=== PATIENT | female | born 1950 | race Caucasian/White ===

== ENCOUNTER 2019-05-22 09:46 | Inpatient (IN) | payer MEDICARE, OTHER, SELFPAY ==
--- NOTE | 2019-05-07 15:41 | HP.PCM_ITS ---
History and Physical Patient Name: Mariluz Mandujano : 1950 From: ANIA CISSE PA-C DATE OF SURGERY: 05/22/2019 SCHEDULED PROCEDURE: right total hip arthroplasty HISTORY OF PRESENT ILLNESS: Preoperative history and physical exam was performed on May 06, 2019. This is a 69-year-old female who is been having ongoing pain for approximately 2 years in the right hip. Pain can reach as high as a 10/10 with activities. On average pain as a 7/10. Pain has been constant, aching, sharp, stabbing. Pain is increased with going up and down stairs, walking, and sleeping. Patient does complain of right buttock pain right lateral hip pain and anterior thigh/groin pain. Pain does awaken her at night. Patient has difficult time with activities of daily living including getting dressed, housework, shopping. She feels unsafe walking on uneven ground and standing for long periods. Patient has been using a cane for the past 1 year. She denies previous surgeries on the right hip. Patient has tried oral medications consisting of Celebrex and Tylenol as well as Biofreeze. She has tried conservative measures consisting of rest, ice, heat, elevation with minimal relief. She has been through formal physical therapy and home exercises with no relief. After discussion with Dr. Philippe Tran, the patient would like to proceed with a right total hip arthroplasty. We have obtain surgical clearance from patient's primary care physician Dr. Hutchison. Patient has medical history of previous cancer of the breast in which she had radiation 7 years ago and has been in remission. She did undergo a lumpectomy. Patient denies chest pain, shortness of breath, fevers chills, recent infections. REVIEW OF SYSTEMS: ROS: Const: Denies change in appetite, fever,or weight change. CV: Reports heart murmur, but denies chest pain and irregular heartbeat. Resp: Denies cough, pneumonia, SOB, tuberculosis and wheezing. GI: Denies constipation, diarrhea, difficulty swallowing, heartburn, nausea, bloody stools and vomiting. : Urinary: denies incontinence. Musculo: Reports limp and trouble walking, but denies leg swelling and weakness. Skin: Denies Raynaud's, history of shingles and tattoo. Neuro: Denies ambulatory dysfunction, dizziness, numbness/tingling and tremor. Psych: Denies anxiety, insomnia and stress. Valente/Lymph: Denies anemia, bleeding/bruising tendency and past transfusion. Reviewed and updated. PAST MEDICAL HISTORY: Advance Care Plan: Other Directive, POA Effective Date: 04/17/2017 PMH: Medical Problems: Cancer Accidents: Foot FX Surgical Hx: Hysterectomy - (1974) LT Knee Arthroscopy - (2007) [place] 2003 Lumpectomy, Tonsillectomy Dennis Cataract - (07/2018) Anesthesia Complications: Slow To Wake Up, Nausea, Vomiting Assistive Devices: Glasses - READING, Cane Reviewed and updated. SOCIAL HISTORY: SH: Marital: Single.Occupation: Retired.Work Status: Retired.Hand Dominance: Right- handed. Personal Habits: Cigarette Use: Never Smoked Cigarettes.Alcohol: Denies use.Drug Use: Denies Use.Enjoy Exercising: Exercises 1-3 X/Week. Reviewed, no changes. VITALS: Ht: 64 Wt: 179lb Wt k.194 BMI: 30.7 BP: 115/68 Pulse: 77 Resp: 16 T: 97.7 T: 36.5C ALLERGIES: Ampicillin Penicillin Adhesives MEDICATIONS: Celebrex 100 mg take 1 capsule every day, Calcium 1200 5814-3927 MG-Unit 1po qday, Vitamin B12 500 mcg 1po qday, Vitamin D (Ergocalciferol) 2000 Unit 2 caps PO daily PRE-OP EXAM: General appearance:NORMAL Other: Eyes: Conjunctivae and lids: NORMAL Pupils: ERR Ears, Nose, Mouth, and Throat: NORMAL Other: Inspection of lips, teeth and gums: NORMAL Other: Neck: Examination of neck: no masses noted. Respiratory: Assessment of respiratory effort: NORMAL Other: Auscultation of lungs: clear to auscultation no wheezes, rhonchi or rales. Cardiovascular: Auscultation of heart: regular rate and rhythm, no murmurs, gallops or rubs. Gastrointestinal: Exam of abdomen: soft, nontender, nondistended bowel sounds present. PHYSICAL EXAMINATION: Does walk with an antalgic gait. Right hip flexion 65, internal rotation 10, external rotation neutral. Passive range of motion recreates pain. 10 flexion contracture of the right knee. Sensation intact to light touch. Neurovascularly intact. IMAGING STUDIES: X-rays of the right hip reveal joint space narrowing, subchondral sclerosis, and osteophyte formation consistent with severe osteoarthritis. There is femoral head flattening and collapse due to the subchondral cyst. Patient has further erosion of the femoral head when compared to previous x-rays. IMPRESSION: 1. Severe right hip osteoarthritis 2. History of breast cancer PLAN: Dr. Philippe Tran did discuss and review with the patient all treatment options including surgical versus nonsurgical options. Patient does wish to proceed with the above-stated procedure. Potential risks, benefits, and complications of the procedure were discussed in detail including but not limited to , infection, nerve and blood vessel damage, persistent pain, numbness, tingling, paresthesias, blood clot, pulmonary embolism, and requirement for possible further surgery. The patient expressed full understanding and has no further questions for the doctor. Patient does agree to proceed with the above-stated procedure and has signed the surgery consent form. This dictation was created using voice recognition software. Phonetic and/or grammatical errors may exist.. ___ I have re-examined the patient. There are no clinical changes since date of exam. ___ See progress notes for changes. ___ Dictated on admission Date: Time: Signature:
[2019-05-08 14:13] VITALS: BP 121/67; PULSE 70; RESP 16; TEMP 36.7; O2SAT 96; BMI 29.7
--- NOTE | 2019-05-08 14:35 | SDCEKG_ITS ---
Test Reason : Blood Pressure : / mmHG Vent. Rate : 061 BPM Atrial Rate : 061 BPM P-R Int : 172 ms QRS Dur : 086 ms QT Int : 408 ms P-R-T Axes : 035 -56 010 degrees QTc Int : 410 ms Normal sinus rhythm Left anterior fascicular block Minimal voltage criteria for LVH, may be normal variant Abnormal ECG Confirmed by MAURIZIO WETZEL ([id number]), map editor RANDAL SALCEDO ([id number]) on 05/13/2019 2:00:43 PM Referred By: Philippe Tran Confirmed By:MAURIZIO WETZEL
[2019-05-08 15:31] LABS: Absolute Lymphocyte Count 1.89 X10^3/uL (0.83-4.51); Absolute Neutrophil Count 4.6 X10^3/uL (2.0-7.7); Basophil# 0.04 X10^3/uL; Basophil% 0.5 % (0-1); Eosinophil# 0.19 X10^3/uL; Eosinophils% 2.6 % (0-5); Hemoglobin 15.5 g/dL (12.0-15.0); Lymphocyte # 1.89 X10^3/ul (4.0); Lymphocyte % 25.8 % (19-41); Mean Corp Hgb Conc 34.4 g/dL (32-36); Mean Platelet Vol. 9.6 fl (6.2-12.0); Monocyte# 0.62 X10^3/uL; Monocyte% 8.5 % (0-10); NRBC Flagged by Analyzer 0 % (0-5); Neutrophil # 4.56 X10^3/uL (2.7-7.7); Neutrophil % 62.2 % (47-70); Platelet Count 274 K/mm3 (150-450); RBC Distribution Width CV 12.1 % (11.6-14.6); RBC Distribution Width SD 39.4 fl (35.1-43.9); White Blood Count 7.3 K/mm3 (4.4-11.0)
[2019-05-08 15:59] LABS: Anion Gap 9 (5-15); BUN 19 mg/dL (7-18); BUN/Creat Ratio 26.8 RATIO (10-20); Chloride 109 mmol/L (98-107); Creatinine, Serum 0.71 mg/dL (0.55-1.02); EST Glomerular Filtration Rate 87 mL/min (>60); Est Glom Filt Rate - Afr Amer 105 mL/min (>60); Glucose 93 mg/dL (74-106); Potassium 3.9 mmol/L (3.5-5.1); Sodium Level 142 mmol/L (136-145)
[2019-05-22] VITALS (11 sets, daily range): BP systolic 107–127; BP diastolic 50–61; PULSE 50–79; RESP 16–17; TEMP 35.7–36.4; O2SAT 95–100; BMI 29.7
--- NOTE | 2019-05-22 07:03 | RAD_ITS ---
STUDY: X-RAY - PELVIS AND RIGHT HIP REASON FOR EXAM: Female, 69 years old. Postop TECHNIQUE: 2 views of the pelvis and right hip. COMPARISON: None. FINDINGS: There are postsurgical changes from right hip arthroplasty. The hardware is intact and alignment is satisfactory. There is no acute fracture or dislocation. RAD/Hip Min 2 Views (Portable) IMPRESSION: Status post right hip arthroplasty with intact hardware in satisfactory alignment. Electronically Signed: Philippe Rodríguez, at 14:49 EDT Tel , Service support ,
[2019-05-22] MEDS: Lactated Ringers 1,000 ML 999 ML IV (07:05)
[2019-05-22] MEDS: Gabapentin 600 MG Tablet PO (10:14)
[2019-05-22] MEDS: Celecoxib 200 MG Capsule 400 MG PO (10:14)
[2019-05-22] MEDS: Acetaminophen 500 MG Tablet 1000 MG PO ×3 (10:15→21:06)
[2019-05-22 10:41] LABS: Bedside Glucose 103 mg/dL (70-110)
[2019-05-22] MEDS: Magnesium Sulfate 4gm/100mL 4 GM/100 ML IV.SOLN. IV (10:47)
[2019-05-22] MEDS: Scopolamine 1mg/72hr Patch 1 PATCH TRANSDERM. (10:49)
[2019-05-22] MEDS: Cefazolin 2 GM in 0.9% Normal Saline 100 ML IV (11:40)
--- NOTE | 2019-05-22 12:00 | RAD_ITS ---
STUDY: X-RAY - PELVIS AND RIGHT HIP REASON FOR EXAM: Female, 69 years old. Right hip arthroplasty TECHNIQUE: 4 intraoperative fluoroscopic views of the pelvis and hip. COMPARISON: None. FINDINGS: 4 intraoperative fluoroscopic views were provided during a right hip replacement procedure. Correlation with the operative report is recommended. RAD/Hip 1 view with Pelvis IMPRESSION: As above. Electronically Signed: Philippe Rodríguez, at 14:01 EDT Tel , Service support ,
--- NOTE | 2019-05-22 13:11 | OP.PCM_ITS ---
Report of Operation Date of Procedure: 05/22/19 Pre-Operative Diagnosis: Right hip primary osteoarthritis Post-Operative Diagnosis: Right hip primary osteoarthritis Surgery/Procedure Performed:: Right minimally invasive direct anterior hip replacement Description of Surgical Findings:: Stable hip with equal leg lengths site identification specialist: Regulo Knight Type of Anesthesia:: Spinal Anesthesiologist: Han Azevedo Special Medications: 2 g Ancef, 1 g TXA at incision, 1 g TXA closure, 10 mg Decadron, joint cocktail (5 mg Duramorph, 30 mL of 0.5% Ropivicaine, 1000 units of epinephrine, 30 mg of Toradol) Specimen's removed: Bony cuts Estimated Blood Loss (mL): 250 mL Fluids Replaced: 1200 mL crystalloid Description of Procedure: Components used: 1. Accolade 2 Fior femoral stem size 4 132? 2. [place] trident 2 acetabular shell size 50 mm 3. Fior X3 polyethylene D 4. Fior Biolox delta 36mm, -5mm femoral head Brief history operative indications: 69 yo f who failed conservative measures for their hip osteoarthritis. X-rays were consistent with osteoarthritis including joint space narrowing, osteophyte formation and subchondral cysts. Total hip replacement was discussed with the patient with risks and benefits including but not limited to blood loss, DVTs, PEs, neurovascular damage, dislocation, general risks of anesthesia including loss of life. Patient demonstrated an understanding medical clearance is obtained the patient was consented for surgery. Procedure: On the date of procedure the patient's R hip was marked in the preoperative area. Patient was then taken back to the operating room where anesthesia assumed control of the C-spine and airway and administered anesthetic. Patient was transferred to the operating table and placed in the supine position. The hips were placed at the break of the bed and a sacral bump was placed. The R lower extremity was then prepped out in a sterile fashion using chlorhexidine while the surgeon scrubbed. The PA was vital in the positioning of the patient. Upon reentering the room the R lower extremity was draped in the standard orthopedic fashion and the incision was marked. A timeout was called and everyone agreed upon the side, the site, the procedure be performed, antibody given, and patient's identity. At this time incision was made through skin, subcutaneous tissue, and fat down to fascia. The fascia was then incised and the TFL was retracted laterally. A retractor was placed on the lateral border of the femoral neck. Attention was directed to the inferior portion of the approach and all crossing vessels were identified and appropriately coagulated. A retractor was then placed on the medial portion of the femoral neck. The anterior capsule was then cleared of all soft tissue and then H shaped capsulotomy was made. The retractors were then placed inside the capsule. The femoral neck was identified and a cleanup cut was made. At this time a power corkscrew was used to remove the femoral head. Attention was then turned toward the acetabulum where the soft tissues were appropriately retracted and the acetabulum was sequentially reamed to 50 mm. A 50 mm cup was then selected and impacted into place. Acetabular liner was impacted into place and locking mechanism was verified. The position of the acetabular cup was then verified under live fluoroscopy. Attention was then turned to the femur. Soft tissue releases on the medial and lateral femoral neck were appropriately done, the leg was externally rotated and lateralized. A Mclean retractor was placed medially and proximally to the greater trochanter this allowed appropriate visualization and exposure of the femoral canal. Rongeour was then used to remove excess lateral bone. A canal finder and entry broach were used to open the proximal canal. Once we verified we were down the femoral canal we subsequently broached up to a size 4 femur. The appropriate neck was placed in the previously selected head was trialed with a -5 mm neck. Traction was pulled and the hip was reduced with internal rotation. Once it was appropriately reduced and stability was checked. There was minimal shuck, equal leg lengths and appropriate stability with hyperextension and external rotation as well as with 90? flexion and internal rotation. Fluoroscopy was then also used to verify the position of the components and leg lengths using the contralateral side for comparison. The trial components were then dislocated the proximal femur was again exposed and the components were removed from the wound. The final components were verified and opened. The wound was copiously irrigated out with normal saline. The acetabulum was checked for any residual debris. The final components were placed and impacted. Traction and internal rotation were again used to reduce the hip. After adequate reduction the hip remained stable with appropriate leg lengths. The final components were once again checked with live fluoroscopy and were found to be satisfactory. The wound was then copiously irrigated with normal saline once more, and hemostasis was obtained. Closure was then done using #1 Vicryl runner to close the fascia. A 2-0 vicryl interuppted sutures were used to close the subcutaneous skin. A 3-0 Monocryl and Steri-Strips were used for final skin closure. A Silverlon dressing was placed. Patient was awakened by anesthesia and transferred to the [facility]. Hilaria ent was then transferred to the PACU for recovery. Postoperative plan: Patient will get 24 hours postop antibiotics. Patient will get in-house physical therapy and will be weight-bear as tolerated. Patient will follow up in office in 2 weeks for a wound check and x-rays. Grafts/Implants Used: Fior - Complications No intraoperative complications - Admit VTE Documentation VTE Present on Admission: No VTE Mechan Device Prophylaxis: SCD's, Thigh High SHANTEL Hose VTE Pharm Prophylaxis ordered?: Yes
[2019-05-22] MEDS: Lactated Ringers 1,000 ML 125 ML IV ×2 (13:43→15:55)
[2019-05-22] MEDS: Aspirin 81 MG TAB.CHEW PO (16:14)
[2019-05-22] MEDS: Famotidine 20 MG Tablet PO (16:14)
--- NOTE | 2019-05-22 16:57 | CHAPLAIN ---
Type of Pastoral Visit _x__ Initial Visit ___ Follow-up Visit ___ On-call Visit ___ General Patient Visit ___ Spiritual Assessment ___ Family Conference ___ Bereavement ___ Rapid Response ___ Code Blue ___ Other (describe below) Pastoral Care Referral From _x__ Patient ___ Family ___ Nurse ___ Physician ___ Gear Repair Supervisor ___ Import/Export Administrator ___ Other (describe below) Sacrament/Intervention _x__ Active listening ___ Anointing ___ Mormonism ___ Bereavement ___ Communion ___ Beverly exploration ___ _x__ Life review _x__ Prayer ___ Reconciliation ___ Sacrament of Sick _x__ Supportive presence ___ Wedding ___ Other (describe below) Pastoral Comments
[2019-05-22] MEDS: Ensure Surgery 237 ML LIQUID PO (19:01)
[2019-05-22] MEDS: Cefazolin 1 GM/50 ML BAG IV (19:01)
[2019-05-22] MEDS: Senna/Docusate Sodium 1 Tablet 2 TABLET PO (21:07)
[2019-05-23 03:29] VITALS: BP 100/55; PULSE 58; RESP 16; TEMP 36.5; O2SAT 97
[2019-05-23] MEDS: Cefazolin 1 GM/50 ML BAG IV (03:42)
[2019-05-23 05:47] LABS: Hematocrit 35.6 % (37-47); Hemoglobin 11.9 g/dL (12.0-15.0); Mean Corp Hgb Conc 33.4 g/dL (32-36); Mean Corpuscular Hgb 30.7 pg (27.0-32.0); Mean Corpuscular Volume 91.8 fL (81-99); Mean Platelet Vol. 9.4 fl (6.2-12.0); Platelet Count 208 K/mm3 (150-450); RBC Distribution Width CV 12.5 % (11.6-14.6); RBC Distribution Width SD 41.5 fl (35.1-43.9); Red Blood Count 3.88 M/mm3 (4.2-5.4); White Blood Count 9.2 K/mm3 (4.4-11.0)
[2019-05-23 06:07] LABS: Anion Gap 5 (5-15); BUN 9 mg/dL (7-18); BUN/Creat Ratio 17.6 RATIO (10-20); Calcium,Total 8.3 mg/dL (8.5-10.1); Chloride 113 mmol/L (98-107); Creatinine, Serum 0.51 mg/dL (0.55-1.02); EST Glomerular Filtration Rate 126 mL/min (>60); Est Glom Filt Rate - Afr Amer 153 mL/min (>60); Glucose 101 mg/dL (74-106); Potassium 3.7 mmol/L (3.5-5.1); Sodium Level 145 mmol/L (136-145)
[2019-05-23] MEDS: Meloxicam 7.5 MG Tablet PO (06:18)
[2019-05-23] MEDS: Acetaminophen 500 MG Tablet 1000 MG PO ×2 (06:19→13:56)
[2019-05-23] MEDS: Aspirin 81 MG TAB.CHEW PO (07:37)
[2019-05-23] MEDS: Senna/Docusate Sodium 1 Tablet 2 TABLET PO (07:37)
[2019-05-23] MEDS: Ensure Surgery 237 ML LIQUID PO ×2 (07:37→11:31)
[2019-05-23] MEDS: Famotidine 20 MG Tablet PO (07:38)
[2019-05-23] MEDS: Multivitamins,Therapeutic Tablet 1 TABLET PO (07:38)
[2019-05-23] MEDS: Calcium (Elemental) 500 MG Tablet 1000 MG PO (07:39)
[2019-05-23 07:42] VITALS: BP 120/52; PULSE 67; RESP 16; TEMP 36.8; O2SAT 100
--- NOTE | 2019-05-23 08:36 | PN.ORTHO_ITS ---
Subjective: The patient was sitting in bedside chair upon examination. Patient denies any chest pain, shortness of breath, dizziness, lightheadedness, nausea or vomiting, or calf pain. Pain is controlled on medications. No adverse overnight events. Overall patient is doing well. Her pain is very well controlled. Patient wishes to go home today. Objective: Vital signs stable and afebrile. Patient is able to plantarflex and dorsiflex actively. Sensation is intact to light touch to saphenous, sural, superficial and deep peroneal, and tibial distribution. Dressing is clean dry and intact. Right thigh is soft and supple, positive swelling Negative Homans bilaterally, negative signs and symptoms of DVT. - Physical Exam General: Alert, Oriented x3, Cooperative, No apparent distress Vital Signs Temp Pulse Resp BP Pulse Ox 98.3 F 67 16 120/52 L 100 05/23/19 07:42 05/23/19 07:42 05/23/19 07:42 05/23/19 07:42 05/23/19 07:42 Oxygen Flow Rate (L/min) 6 Oxygen Delivery Method Room Air Weight: 81 kg Body Mass Index (BMI) 29.7 Intake and Output for Last 24 Hours 05/21/19 05/22/19 05/23/19 23:59 23:59 23:59 Intake Total 4423.00 / 4423.00 550 / 550 Output Total 1525 / 1525 Balance 4423.00 / 4423.00 -975 / -975 Laboratory Tests Past 24 Hrs 05/23/19 05/23/19 05:12 05:12 WBC 9.2 RBC 3.88 L Hgb 11.9 L Hct 35.6 L MCV 91.8 MCH 30.7 MCHC 33.4 RDW Std Deviation 41.5 RDW Coeff of Lanny 12.5 Plt Count 208 MPV 9.4 Sodium 145 Potassium 3.7 Chloride 113 H Carbon Dioxide 27.0 Anion Gap 5 BUN 9 Creatinine 0.51 L Estim Creat Clear Calc 47.10 Est GFR (MDRD) Af Amer 153 Est GFR (MDRD) Non-Af 126 BUN/Creatinine Ratio 17.6 Glucose 101 Calcium 8.3 L POC Glucose 05/22/19 10:22 POC Glucose 103 Medical Necessity - Tobacco Use Smoking Status: Never smoker Tobacco Use: Non-smoker Assessment/Plan 1. S/P right direct anterior total hip arthroplasty POD #1 2. Continue Pain Medications: Tylenol and OxyIR 3. DVT Prophylaxis: Aspirin 81 mg twice daily for 4 weeks postoperatively 4. PT/OT: Weightbearing as tolerated 5. H & H: 11.9/35.6, asymptomatic 6. Encouraged Incentive Spirometry 7. Disposition: Orthopedically stable, plan will be for discharge home today. Prescriptions will be E scribed to [facility] in [place]. Narcotic prescription will be attached to chart. Patient will follow-up per postop instructions.
--- NOTE | 2019-05-23 08:43 | DCINST_ITS ---
Discharge Diet: No Restrictions Discharge Activity: May Not Drive - while taking narcotic pain medications. May shower in (days): 1 - Turn dressing away from water Ice area for (Minutes): 20 - Every 1-2 hours while awake Weight Bearing Status: Weight bearing as tolerated Elevate: Operative Extremity Additional Activity Instructions:: Wear elastic stockings for 2 weeks. DO NOT use alcohol with narcotic pain medication. DO NOT make important decisions while taking narcotic medication. If you have problems with taking your medication (rash, itching, nausea, etc.) call the office at once. Call your doctor if your incision/area has: Increased Pain/ Swelling, Increased Redness, Foul Smelling Discharge Call your doctor if you observe: Fever of 101 or Higher Remove Dressing in (days):: 4 - Okay to remove dressing on May 27, 2019 Additional Instructions: Follow [facility] postop instructions Do not take aspirin 81 mg and meloxicam together, please stagger medications and take with food Allergies/Adverse Reactions: Allergies adhesive Allergy (Verified 05/08/19 14:09) Rash adhesive tape Allergy (Verified 05/08/19 14:09) Rash ampicillin Allergy (Verified 05/08/19 14:09) Rash Penicillins [PCN] Allergy (Verified 05/08/19 14:09) Rash Medications to take at Discharge Calcium Carbonate [Calcium] 1,200 mg PO DAILY 05/08/19 Cetirizine HCl [Zyrtec] 10 mg PO PRN PRN 05/08/19 Cholecalciferol (Vitamin D3) [Vitamin D3] 4,000 unit PO DAILY 05/08/19 Cyanocobalamin (Vitamin B-12) [Vitamin B-12] 500 mcg PO DAILY 05/08/19 Multivitamin [Daily Value] 1 ea PO DAILY 05/08/19 Carboxymethylcellulose Sodium [Refresh Tears] 1 drp OP BID 05/17/19 Acetaminophen [Tylenol] 1,000 mg PO Q8 #100 tab 05/23/19 Aspirin [Aspirin, Baby] 81 mg PO BIDCM #60 tab 05/23/19 Famotidine [Pepcid] 20 mg PO DAILY #30 tab 05/23/19 Meloxicam [Mobic] 7.5 mg PO BID #60 tab 05/23/19 Oxycodone [Oxyir] 5 mg PO Q4H PRN PRN 5 Days #30 tab 05/23/19 Senna/Docusate Sodium [Senokot-S] 2 tab PO BID #20 tab 05/23/19 The following prescriptions were given: Aspirin [Aspirin, Baby] 81 mg PO BIDCM #60 tab Transmission Status: Pending to [id number] Meloxicam [Mobic] 7.5 mg PO BID #60 tab Transmission Status: Pending to [id number] Oxycodone [Oxyir] 5 mg PO Q4H PRN PRN 5 Days #30 tab PRN Reason: Mod-Severe Pain (-07/11) Prescription Printed Famotidine [Pepcid] 20 mg PO DAILY #30 tab Transmission Status: Pending to [id number] Senna/Docusate Sodium [Senokot-S] 2 tab PO BID #20 tab Transmission Status: Pending to [id number] Acetaminophen [Tylenol] 1,000 mg PO Q8 #100 tab Transmission Status: Pending to [id number] Primary Care Physician: Dedrick Hutchison III, MD [Primary Care Provider] - Test Results: Test results from this visit will be discussed in further detail at your follow- up appointment, if applicable. Please Follow Up With: [facility] When: 05/27/19 @ 10:00 with Claudia Please Follow Up With: Mode Lackey PA-C When: 06/05/19 @ 8:15 am
--- NOTE | 2019-05-23 10:26 | CASEMGMT ---
LW/POA forms in paper chart. Pt's brother Ankit is named as POA. [address]
[2019-05-23] MEDS: Ondansetron 4 MG/2 ML Vial IV (13:59)
[2019-05-23 14:02] VITALS: BP 128/41; PULSE 65; RESP 18; TEMP 36.9; O2SAT 97
--- NOTE | 2019-05-23 14:24 | CHAPLAIN ---
Type of Pastoral Visit ___ Initial Visit _x__ Follow-up Visit ___ On-call Visit ___ General Patient Visit ___ Spiritual Assessment ___ Family Conference ___ Bereavement ___ Rapid Response ___ Code Blue ___ Other (describe below) Pastoral Care Referral From _x__ Patient ___ Family ___ Nurse ___ Physician ___ Professor Of Art History ___ Conveyor Operator ___ Other (describe below) Sacrament/Intervention _x__ Active listening ___ Anointing ___ Mormon ___ Bereavement ___ Communion ___ Beverly exploration ___ _x__ Life review ___ Prayer ___ Reconciliation ___ Sacrament of Sick ___ Supportive presence ___ Wedding ___ Other (describe below) Pastoral Comments
--- NOTE | 2019-05-23 15:48 | CASEMGMT ---
Addendum entered by Lisa Morales 05/23/19 16:00: assessment done 05/23/19 @1030 Original Note: RN CM PUBLIC TRANSIT TROLLEY DRIVER CM to room to meet with patient for initial transition planning/care coordination assessment. RN OSMANY introduced self and role at [facility]. Pt voices understanding and consents to assessment at this time. Pt sitting up in recliner chair in no distress at this time. Pt is A/O at this time and answers all questions appropriately. Care providers, pharmacy, and demographics verified/updated at this time. PCP: Dedrick Hutchison Specialists: Marc--ortho, Jackelin--ENT Preferred Pharmacy: [facility] Insurance:[employer], AARP Prescription Benefit: [employer] Living Will/HPOA: Has both LW and HCPOA, who is her brother, Joe Mandujano LNOK:Brother Living Arrangements: Lives alone in one-story home w/ramp to enter thru the garage. States was independent prior to surgery. States her cousin or friend will be staying with her overnight and available if needed to assist. Transportation: Cousin, Rosina, will drive her home @ d/c. Her friend will drive her to her 1st appt @ [facility] and then she is working on making further arrangements with her cousin and friend for further appts. DME: [facility] has the following DME: shower chair, cane, lift chair, rails/grab bars, hand held shower, walker, fast brim pouncer, long shoe horn Pt states no need for further DME at this time. HHC/SNF: No history of either and denies needs. Discussed HHC vs Out-pt therapy. Pt states she prefers OP therapy. Pt wishes to return home and states has no concerns with going home at time of discharge. CM to follow for any further discharge planning/needs. Pt voices no further concerns/needs at this time. Advised pt to ask for CM if any further questions/concerns/needs arise. Voices understanding. PLAN: Home w/OP therapy @ [facility]. Malgorzata CHANDLER RN, CM
== END 2019-05-23 14:19 | disposition home or self-care (01) | DRG 470 ==
LOC: ACINP 09:50 → MS3 13:07
PROVIDERS: Admitting Provider Specialist; Family Provider Family Medicine; PCP Family Medicine; Referring Provider Specialist; Visit Provider Specialist
PROC: 0SR90JA Replacement of Right Hip Joint with Synthetic Substitute, Uncemented, Open Approach (ICD-10-PCS; CPT 27284; principal; 2019-05-22 11:35)
DX: M16.11 Unilateral primary osteoarthritis, right hip (principal); Z85.3 Personal history of malignant neoplasm of breast; Z92.3 Personal history of irradiation
CPT/HCPCS: 36415; 73501; 73502; 76000; 80048; 82962; 85025; 85027; 87081; 93005; 97110; 97162; 97166; 97530; 99251; C1776; J7120; G0463; J2405

== ENCOUNTER → 2020-03-31 10:48 | Outpatient (CLI) | payer MEDICARE, OTHER, SELFPAY ==
[2019-05-22 10:17] VITALS: BMI 29.7
[2020-04-01 07:20] LABS: SARS-COV-2 TOTAL ABS Nonreactive (Nonreactive)
== END ==
PROVIDERS: PCP Family Medicine; Referring Provider Family Medicine; Visit Provider Family Medicine
DX: Z86.19 Personal history of other infectious and parasitic diseases (principal)
CPT/HCPCS: 86769; G2023

== ENCOUNTER → 2020-11-26 12:17 | Outpatient (CLI) | payer MEDICARE, OTHER, SELFPAY ==
[2019-05-22 10:17] VITALS: BMI 29.7
[2020-11-26 15:58] LABS: Ferritin 221 ng/mL (8-252)
[2020-11-28 09:20] LABS: Thyroid Peroxidase AB < 9 IU/mL (0-34)
[2020-12-01 15:30] LABS: Anti-Nuclear Antibody Test Negative (.)
== END ==
PROVIDERS: PCP Family Medicine; Referring Provider Dermatology Pediatric Dermatology; Visit Provider Dermatology Pediatric Dermatology
DX: E03.8 Other specified hypothyroidism (principal); D69.2 Other nonthrombocytopenic purpura; L82.1 Other seborrheic keratosis; L65.0 Telogen effluvium
CPT/HCPCS: 36415; 82728; 86038; 86376

== ENCOUNTER → 2022-01-28 | Outpatient (CLI) | payer MEDICARE, OTHER, SELFPAY ==
--- NOTE | 2022-01-28 07:41 | CT_ITS ---
STUDY: CT LEFT LOWER EXTREMITY WITHOUT CONTRAST REASON FOR EXAM: Varus deformity, left knee pain, surgical planning. TECHNIQUE: Transaxial CT imaging of the lower extremity was performed. Coronal and sagittal images were reformatted. Individualized dose optimization techniques were used for this CT. COMPARISON: None. FINDINGS: Knee: There are marginal osteophytes, subchondral eburnation and joint space loss of the medial femorotibial compartment (coronal reconstruction 31). There are marginal osteophytes and a surface osteophyte of the lateral femoral condyle with preservation of joint space of the lateral femorotibial compartment. There are marginal osteophytes and joint space narrowing of the lateral aspect of the patellofemoral compartment (axial image 242). There is an intra-articular body at the lateral aspect of the patellofemoral articulation (axial image 218). There is a small joint effusion. There is a small popliteal cyst (sagittal reconstruction 30). Hip: There is joint space narrowing of the superior medial left hip (coronal reconstructions 55). Ankle: Normal tibiotalar, posterior subtalar, talonavicular and calcaneocuboid articulations. CT/Extremity Lower without Contra IMPRESSION: Left knee osteoarthritis. Electronically Signed: Mando Scherer MD at 15:02 EDT ,
== END | disposition home or self-care (01) ==
LOC: CT 07:29
PROVIDERS: Referring Provider Specialist; Visit Provider Specialist
DX: M21.162 Varus deformity, not elsewhere classified, left knee (principal)
CPT/HCPCS: 73700

== ENCOUNTER 2022-02-09 05:49 | Day surgery (SDC) | payer MEDICARE, OTHER, SELFPAY ==
--- NOTE | 2022-01-25 13:31 | PCM.HP.BLA ---
History and Physical History and Physical [facility] Patient Name: Mariluz Mandujano : 1950 From: ANIA CISSE PA-C DATE OF SURGERY: 02/09/2022 SCHEDULED PROCEDURE: left total knee arthroplasty HISTORY OF PRESENT ILLNESS: Preoperative history and physical exam was performed on January 24, 2022. This is a 71-year-old female whose had ongoing pain since 2016 with her left knee. She does have previous history of a total hip arthroplasty by Dr. Philippe Tran in 2019. She is doing well from that procedure. She continues to complain of pain in the left knee despite conservative measures. Her pain is been sharp and sore. She gets stiffness as well as catching. Her knee mendy on her. Pain is increased with going up and down stairs, walking, and getting out of bed. She does have start up pain. Patient has difficulty with activities of daily living including shopping as well as leisure activities such as walking. She has stumbled when her knee gives out on her. She has tried rest, ice, elevation with minimal relief. She has tried multiple corticosteroid injections which only provides temporarily short-term relief. She has had previous meniscus repair arthroscopically in 2004 in [place]. She has also tried oral medications including glucosamine, Celebrex. She has also tried Tylenol. No relief with medications. She has attempted topical ointments as well. After failing conservative measures and discussing all treatment options with Dr. Philippe Tran, the patient does wish to proceed with a left total knee arthroplasty. We are obtaining surgical clearance from the primary care physician Dr. Stanley. Patient currently denies any chest pain, shortness of breath, fevers chills or recent infections. She has medical history pertinent for diabetes as well as previous breast cancer. Patient denies any history of DVT or pulmonary embolism. REVIEW OF SYSTEMS: Review Of Systems: Constitutional: Denies change in appetite, fever,or weight change. Cardiovasular: Reports heart murmur, but denies chest pain and irregular heartbeat. Respiratory: Denies cough, pneumonia, shortness of breath, tuberculosis and wheezing. Gastrointestinal: Denies constipation, diarrhea, heartburn, nausea, rectal itching, bloody stools and vomiting. Genitourinary: Denies incontinence. Musculoskeletal: Reports pain and trouble walking, but denies leg swelling and weakness. Skin: Denies Raynaud's, history of shingles and tattoo. Neurological: Denies ambulatory dysfunction, dizziness, numbness/tingling and tremor. Psychiatric: Denies anxiety, insomnia and stress. Hematologic/Lymphatic: Denies anemia, bleeding/bruising tendency and past transfusion. Reviewed, no changes. PAST MEDICAL HISTORY: Advance Care Plan: Other Directive, POA Effective Date: 04/17/2017 Past Medical History: Medical Problems: Cancer, Diabetes Accidents: Foot FX Surgical Hx: Hysterectomy - (1974) LT Knee Arthroscopy - (2003) [place] Lumpectomy, Tonsillectomy Dennis Cataract - (07/2018) RT THR - (05/22/2019) [email or web address] Lump Removal - LT LEG Anesthesia Complications: Slow To Wake Up, Nausea, Vomiting Assistive Devices: Glasses - READING Reviewed and updated. SOCIAL HISTORY: Social History: Marital: Single.Occupation: Retired.Work Status: Retired.Hand Dominance: Right-handed. Personal Habits: Cigarette Use: Never Smoked Cigarettes.Smokeless Tobacco: Never Used Smokeless Tobacco.E-Cigarette Use: Never used.Alcohol: Denies use.Drug Use: Denies Use.Enjoy Exercising: Exercises 1-3 X/Week. Reviewed, no changes. VITALS: Ht: 64 Wt: 172lb Wt k.019 BMI: 29.5 BP: 126/78 Pulse: 66 Resp: 14 T: 97.5 T: 36.4C Pain Level: 2 O2SatR: 98 ALLERGIES: Ampicillin Penicillin Adhesives MEDICATIONS: Zofran 4 mg 1-2 by mouth every 8 as needed nausea, Oxycodone HCL 5 mg 1-2 tab by mouth every 4 hours, Meloxicam 7.5 mg 1 by mouth twice a day, Famotidine 20 mg 1 by mouth every day, Calcium 1200 4935-4170 MG-Unit 1po qday, Vitamin B12 500 mcg 1po qday, Tylenol Extra Strength 500 mg prn, Zyrtec Allergy 10 mg 1 tab PO daily, Multi Vitamin Daily 1 by mouth every day, Vitamin D3 50 mcg (2000 Ut) 1 by mouth every day, Biotin 5000 5 mg 1po qday, Prilosec OTC 20 mg as directed, Metformin HCL 500 mg 1 by mouth twice every day PRE-OP EXAM: General appearance:NORMAL Other: Eyes: Conjunctivae and lids: NORMAL Pupils: ERR Ears, Nose, Mouth, and Throat: NORMAL Other: Inspection of lips, teeth and gums: NORMAL Other: Neck: Examination of neck: no masses noted. Respiratory: Assessment of respiratory effort: NORMAL Other: Auscultation of lungs: clear to auscultation no wheezes, rhonchi or rales. Cardiovascular: Auscultation of heart: regular rate and rhythm, positive systolic murmur, no gallops or rubs. PHYSICAL EXAMINATION: Patient does walk with an antalgic gait. Left knee is cool to touch without erythema or signs of infection. Previous arthroscopy incisions are well healed. Patient does have moderate effusion. She has tenderness to palpation along the medial joint line. Normal tenderness over the lateral joint line. She has varus alignment which is correctable on exam. Range of motion: Lacks approximately 10 full extension to 120 flexion. Stable to varus/valgus stress test, stable to anterior/posterior drawer. Sensation intact to light touch. IMAGING STUDIES: Previous x-rays reveal varus alignment with medial joint space narrowing, subchondral sclerosis, osteophyte formation consistent with severe stage IV osteoarthritis with associated heel compartment bony erosions. IMPRESSION: 1. Severe left knee osteoarthritis with varus deformity 2. Type 2 diabetes mellitus 3. History of breast cancer PLAN: Dr. Philippe Tran did discuss and review with the patient all treatment options including surgical versus nonsurgical options. Patient does wish to proceed with the above-stated procedure. Potential risks, benefits, and complications of the procedure were discussed in detail including but not limited to , infection, nerve and blood vessel damage, persistent pain, numbness, tingling, paresthesias, blood clot, pulmonary embolism, and requirement for possible further surgery. The patient expressed full understanding and has no further questions for the doctor. Patient does agree to proceed with the above-stated procedure and has signed the surgery consent form. We discussed the current risks associated with COVID 19. This does include the risk of exposure while in the hospital. Patient was reassured local hospitals have low infection rates and are taking all necessary precautions to avoid exposure to patients. In addition, we discussed strategies that can be used to help limit exposure including those that limit the patient's time in the hospital. Also using strategies to limit the patient's need for continued inpatient services after being discharged from the hospital. Patient was notified that we will need to comply with any screening or testing the hospital wishes to perform or that surgery may be delayed for any positive results. This dictation was created using voice recognition software. Phonetic and/or grammatical errors may exist. ___ I have re-examined the patient. There are no clinical changes since date of exam. ___ See progress notes for changes. ___ Dictated on admission Date: Time: Signature:
--- NOTE | 2022-01-28 07:32 | EKG12_ITS ---
Test Reason : PRE OP Blood Pressure : / mmHG Vent. Rate : 066 BPM Atrial Rate : 066 BPM P-R Int : 142 ms QRS Dur : 088 ms QT Int : 418 ms P-R-T Axes : 059 -70 069 degrees QTc Int : 438 ms Normal sinus rhythm Left anterior fascicular block Poor R wave progression Anterior [place], age undetermined, cannot be excluded Abnormal ECG Confirmed by RUBEN CABA, ERI ([id number]), digital editor RANDAL SALCEDO ([id number]) on 01/31/2022 11:35:44 AM Referred By: Philippe Tran Confirmed By:ERI MIRANDA MD
[2022-01-28 08:14] LABS: Absolute Lymphocyte Count 2.27 X10^3/uL (0.83-4.51); Absolute Neutrophil Count 3.1 X10^3/uL (2.0-7.7); Basophil# 0.05 X10^3/uL; Basophil% 0.8 % (0-1); Eosinophil# 0.24 X10^3/uL; Eosinophils% 3.9 % (0-5); Hematocrit 46.3 % (37-47); Hemoglobin 15.8 g/dL (12.0-15.0); Lymphocyte # 2.27 X10^3/ul (0.83-4.51); Lymphocyte % 37.1 % (19-41); Mean Corp Hgb Conc 34.1 g/dL (32-36); Mean Corpuscular Hgb 30.9 pg (27.0-32.0); Mean Corpuscular Volume 90.4 fL (81-99); Mean Platelet Vol. 9.5 fl (6.2-12.0); Monocyte# 0.47 X10^3/uL; Monocyte% 7.7 % (0-10); NRBC Flagged by Analyzer 0 % (0-5); Neutrophil # 3.07 X10^3/uL (2.7-7.7); Neutrophil % 50.2 % (47-70); Platelet Count 301 K/mm3 (150-450); RBC Distribution Width CV 12.4 % (11.6-14.6); Red Blood Count 5.12 M/mm3 (4.2-5.4); White Blood Count 6.1 K/mm3 (4.4-11.0)
[2022-01-28 08:32] LABS: Magnesium 2.1 mg/dL (1.6-2.6)
[2022-01-28 08:45] LABS: Hemoglobin A1c 6.3 % (3.8-5.6)
[2022-01-28 11:25] LABS: Albumin, Serum 4.1 g/dL (3.2-5.0); Anion Gap 8 (5-15); BUN 15 mg/dL (7-18); BUN/Creat Ratio 18.2 RATIO (10-20); Calcium,Total 9.2 mg/dL (8.5-10.1); Chloride 108 mmol/L (98-107); Creatinine, Serum 0.82 mg/dL (0.55-1.02); EST Glomerular Filtration Rate 72 mL/min (>60); Est Glom Filt Rate - Afr Amer 88 mL/min (>60); Glucose 148 mg/dL (74-106); Potassium 3.9 mmol/L (3.5-5.1); Sodium Level 140 mmol/L (136-145)
[2022-02-09] VITALS (10 sets, daily range): BP systolic 117–129; BP diastolic 58–68; PULSE 55–88; RESP 12–18; TEMP 36.1–36.4; O2SAT 96–100; BMI 28.9
[2022-02-09 06:36] LABS: Bedside Glucose 147 mg/dL (74-106)
--- NOTE | 2022-02-09 06:53 | RAD_ITS ---
STUDY: X-RAY - LEFT KNEE REASON FOR EXAM: Female, 71 years old. tka -- in PACU TECHNIQUE: 2 view(s) of the knee. COMPARISON: None. FINDINGS: There is a total knee arthroplasty in place. The alignment is grossly anatomic. There are postsurgical changes within the soft tissues of the ventral knee. RAD/Knee 1 or 2 Views IMPRESSION: Status post total knee arthroplasty, grossly anatomic in alignment. Electronically Signed: Brandy Lazo MD at 19:51 EDT ,
[2022-02-09] MEDS: Lactated Ringers 1,000 ML 15 ML IV (07:00)
[2022-02-09] MEDS: Celecoxib 200 MG Capsule 400 MG PO (07:02)
[2022-02-09] MEDS: Acetaminophen 500 MG Tablet 1000 MG PO ×2 (07:02→14:40)
[2022-02-09] MEDS: Gabapentin 600 MG Tablet PO (07:02)
--- NOTE | 2022-02-09 07:31 | OP.PCM_ITS ---
Report of Operation Date of Procedure: 02/09/22 Pre-Operative Diagnosis: Left knee primary osteoarthritis Post-Operative Diagnosis: Left knee primary osteoarthritis Surgery/Procedure Performed:: Left knee minimally invasive robotic assisted total knee replacement Description of Surgical Findings:: Stable knee with good patella tracking Surgeon: Philippe Tran operating engineer apprentice: Yogesh Lackey Type of Anesthesia: Spinal Anesthesiologist: Han Azevedo Special Medications: 2 g Ancef, 1 g TXA at incision, 1 g TXA closure, 10 mg Decadron, joint cocktail (5 mg Duramorph, 30 mL of 0.5% Ropivicaine, 1000 units of epinephrine, 30 mg of Toradol) Specimen's removed: Bony cuts Estimated Blood Loss (mL): 35 Fluids Replaced: 650 ml Crystalloid Description of Procedure: Implants used: 1. [place] size 4 triathlon cruciate retaining distal femoral press-fit component 2. [place] size 4 press-fit tritanium tibial baseplate 3. [place] X3 11 mm CS polyethylene 4. [place] X3 29 mm asymmetric patella Brief history operative indications: 71-year-old F with history of left knee osteoarthritis with radiographic findings with loss of joint space, osteophyte formation and subchondral sclerosis. Failed conservative measures as mentioned in the H&P. Discussion of total knee arthroplasty as well as risk and benefits were discussed the patient including but not limited to blood loss, DVTs, PEs, neurovascular damage, general risk of anesthesia including loss of life, and stiffness or instability were discussed with patient. Patient demonstrated understanding and was able to sign informed consent. Procedure: On the date of procedure patient's left lower extremity was marked in the preoperative area. The patient was then taken back to the operating room where the patient was placed on the table in the supine position. All bony prominences were identified a well-padded. Anesthesia assumed control of the C-spine and airway and remained controlled throughout the remainder of the procedure. A to urniquet was placed on the left upper thigh and the leg was prepped in a sterile fashion. The surgeon then scrubbed at this time .Upon reentering the room left lower extremity was draped in a standard orthopedic fashion. A timeout was then called and everyone agreed upon the side, the site, the procedure to be performed, patient's identity and antibiotics given. Esmarch bandage was used to exsanguinate the extremity and the tourniquet was placed up to 250 mmHg with the knee in flexion. A midline skin incision was made and sharp dissection was taken down through skin subcutaneous tissue and f at. The standard medial parapatellar incision was made and the patella was subluxed laterally. An Appropriate deep MCL release was done and the fat pad was resected. Our attention was then directed to the patella. The patella was everted and a flat resection was made. The knee was then flexed up in 2 femoral pins were placed inside the incision and 2 tibial pins were placed outside the incision in the medial tibia bicortically. Once this was completed the 2 checkpoints in the femur and tibia were placed. Knee was then flexed up and the bony landmarks were registered. Once this was completed knee was taken through range of motion and manually stressed allowing us to a plan for an appropriate tibial cut. The robotic arm was brought into the field sterilely and checkpoint and saw were registered. Based on the patient's deformity the tibial cut was made in 2 degrees of varus. At this time the tensioner was then placed in the joint and ligament tension was checked at 90 degrees and full extension. Based on the patient's ligamentous tension appropriate adjustments were made to the operative plan and ligament releases were done. Once we were happy with our operative plan with balanced flexion and extension gaps our attention was directed to the femur. The robot was brought into the field sterilely and registered. Posterior condylar cuts, anterior chamfer cuts and anterior cuts were appropriately made for a size 4 femur. When these were completed the saws were switched out in the distal femoral and posterior chamfer cuts were made. Protecting the soft tissue throughout this time. A size 4 tibial base plate was selected. the knee was flexed to 90 degrees and the soft tissues and posterior osteophytes were removed from the joint. 40 cc of the periarticular injection was injected into the posterior medial corner of the joint. The appropriate trials were then placed on the femur and tibia. A trial polyethylene was trialed to ensure proper balancing and stability of the knee. The appropriate tibial internal rotation was then marked with a bovie. Our attention was then directed to the patella. The lug holes were drilled and the patella trial was placed. Patellar tracking was checked and deemed appropriate. Once we were happy lug holes were drilled for the femur and trial components were removed. the tibia was subluxed and pinned into place and the keel was punched and drilled appropriately. Final components were verified and opened, and cement was mixed in a vacuum. [employer] Simplex cement was used. The wound was copiously irrigated with normal saline. When the cement was ready the components were impacted into place starting with the tibia, femur and finally cementing the patella. The trial poly component was placed and the knee was placed in full extension. All excess cement was removed in the process. Once the cement had cured the tracking, alignment and balance were verified and a size 11 mm CS polyethylene component was placed. Once the final components were placed a 3-minute dilute Betadine lavage was performed followed by an Irrisept lavage was performed and the wound was copiously irrigated with normal saline solution and the periarticular injection was given. The wound was closed in a layer duarte fashion using #1 vicryl interrupted sutures for the arthrotomy, 2-0 interrupted Vicryl suture for the subcuticular layer and jose for final skin closure. A sterile compressive dressing was then placed. The patient was then awakened from anesthesia, transferred to the [facility] and transferred to the PACU for recovery. Post op plan DVT ppx: ASA 81mg BID, thigh high compression stockings Follow up: in office in 2 weeks for wound check PT: to start POD #0 at hospital, outpatient PT should be arranged. My physician assistant manager pt was a vital part of this case. He was important in appropriate retraction during the case, and protection of soft tissues during bony cuts. His intimate knowledge of the case and my steps aided in safe and expedient completion of the procedure as well as appropriate position of the leg during the case. He was also vital in assisting with closure under my direct supervision. Due to the complexity of this case robotic arm was used to assist in the surgery to improve accuracy and clinical outcomes. Complications No intraoperative complications Admit VTE Documentation VTE Present on Admission: No VTE Mechan Device Prophylaxis: SCD's and Thigh High SHANTEL Hose VTE Pharm Prophylaxis ordered?: Yes
[2022-02-09] MEDS: Cefazolin 2 GM in 0.9% Normal Saline 100 ML IV (07:45)
[2022-02-09] MEDS: dexAMETHasone 10 MG/ML Vial IV (08:00)
[2022-02-09] MEDS: TXA 1000mg in NS100 100ml (IVPB at Incision) 660 MG IV (08:00)
[2022-02-09] MEDS: TXA 1000mg in NS100 100ml (IVPB at Closure) 660 MG IV (08:55)
[2022-02-09] MEDS: Lactated Ringers 1,000 ML 999 ML IV (09:00)
[2022-02-09 10:10] LABS: Bedside Glucose 191 mg/dL (74-106)
[2022-02-09] MEDS: Insulin Lispro 100 UNIT/ML INSULN.PEN SC (10:23)
[2022-02-09] MEDS: Lactated Ringers 1,000 ML 125 ML IV (10:29)
--- NOTE | 2022-02-09 12:18 | CHAPLAIN ---
Type of Pastoral Visit _x__ Initial Visit ___ Follow-up Visit ___ On-call Visit ___ General Patient Visit ___ Spiritual Assessment ___ Family Conference ___ Bereavement ___ Rapid Response ___ Code Blue ___ Other (describe below) Pastoral Care Referral From _x__ Patient ___ Family ___ Nurse ___ Physician ___ Group Home Manager ___ [place] Rope Maker ___ Other (describe below) Sacrament/Intervention _x__ Active listening ___ Anointing ___ Sabianism ___ Bereavement ___ Communion ___ [place] exploration ___ ___ Life review _x__ Prayer ___ Reconciliation ___ Sacrament of Sick ___ Supportive presence ___ Wedding ___ Other (describe below) Pastoral Comments post op prayer and presence given in support of patient
[2022-02-09] MEDS: Cefazolin 1 GM/50 ML BAG IV (13:02)
== END 2022-02-09 15:04 | disposition home or self-care (01) ==
LOC: SDC 05:49 → AC 05:50
PROVIDERS: Anesthesiology; PCP Family Medicine; Referring Provider Specialist; Visit Provider Specialist
PROC: 0SRD0JZ Replacement of Left Knee Joint with Synthetic Substitute, Open Approach (ICD-10-PCS; CPT 27447; principal; 2022-02-09 07:30)
DX: M17.12 Unilateral primary osteoarthritis, left knee (principal); M21.162 Varus deformity, not elsewhere classified, left knee; E11.9 Type 2 diabetes mellitus without complications; Z20.822 Contact with and (suspected) exposure to COVID-19; K21.9 Gastro-esophageal reflux disease without esophagitis; Z79.84 Long term (current) use of oral hypoglycemic drugs; Z79.899 Other long term (current) drug therapy; Z78.0 Asymptomatic menopausal state
CPT/HCPCS: 27447; 64447; 01402; 36415; 73560; 80048; 82040; 82962; 83036; 83735; 85025; 87081; 87426; 93005; 97162; C1776; C9803; J7120; J3475

== ENCOUNTER → 2023-10-09 | Outpatient (CLI) | payer MEDICARE, OTHER, SELFPAY ==
--- NOTE | 2023-10-09 12:35 | RAD_ITS ---
STUDY: X-RAY CHEST REASON FOR EXAM: Female, 73 years old. Cough. TECHNIQUE: Frontal and lateral views of the chest. COMPARISON: None. FINDINGS: Mild hyperinflation. There is no demonstrated pleural abnormality. Borderline cardiomegaly. Normal mediastinum and kt. Normal visualized pulmonary arteries. Mild aortic tortuosity. Normal visualized thoracic spine. Normal visualized ribs, clavicles, and shoulders. There is no demonstrated abnormality of the visualized soft tissue structures of the upper abdomen. RAD/Chest PA and Lateral IMPRESSION: Borderline cardiomegaly with hyperinflation and no acute or active cardiac disease. Electronically Signed: Joe Blas MD at 12:50 EST ,
--- OUTSIDE RECORDS SUMMARY | 2023-10-09 12:44 | XMS RPT_ITS | CCD ---
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 Name Role Phone Wilfred Rodriguez MD Primary Care Provider SADIE KNOTT Referring Unavailable WILFRED RODRIGUEZ Primary Care Unavailable WILFRED RODRIGUEZ Attending Unavailable WILFRED RODRIGUEZ Primary Care Unavailable WILFRED RODRIGUEZ Referring Unavailable WILFRED RODRIGUEZ Primary Care Unavailable WILFRED RODRIGUEZ Primary Care Unavailable WILFRED RODRIGUEZ Primary Care Unavailable WILFRED RODRIGUEZ Primary Care Unavailable WILFRED RODRIGUEZ Primary Care Unavailable WILFRED RODRIGUEZ Attending Unavailable WILFRED RODRIGUEZ Primary Care Unavailable WILFRED RODRIGUEZ Referring Unavailable SADIE KNOTT Attending Unavailable WILFRED RODRIGUEZ Primary Care Unavailable CRISTIANO SORTO Attending Unavailable WILFRED RODRIGUEZ Primary Care Unavailable Allergies Allergy Classification Reported Allergen(s) Allergy Type Date of Onset Reaction(s) Facility (7 sources) Adhesive agent; Translations: [ADHESIVE] Drug Allergy 02-21-2017 [facility] (20 sources) Ampicillin; Translations: [AMPICILLIN] Drug Allergy 08-24-2016 [facility] (20 sources) Adhesive agent Drug Allergy 02-21-2017 [facility] Medications Current Medications Medication Drug Class(es) Dates Sig (Normalized) Sig (Original) azithromycin 250 mg oral tablet (1 source) Macrolide Antimicrobial Start: 04-28-2023 End: 05-03-2023 azithromycin (ZITHROMAX Z-BONNIE) 250 mg tablet Indications: Bacterial sinusitis Take 2 tablets day one, then, 1 tablet daily until gone. 6 tablet 0 04/28/2023 05/03/2023 Active Completed/Discontinued Medications Medication Drug Class(es) Dates Sig (Normalized) Sig (Original) Calcium (20 sources) Phosphate Binder, Calcium take 1200 mg by mouth once daily CALCIUM ORAL Take 1,200 mg by mouth once daily. 0 Active Problems Active Problems Problem Classification Problem Date Documented Date Episodic/Chronic Cancer of breast (20 sources) History of malignant neoplasm of breast; Translations: [Personal history of malignant neoplasm of breast] Onset: 08-24-2016 08-24-2016 Episodic Diabetes mellitus without complication (20 sources) Type 2 diabetes mellitus without complication; Translations: [Type 2 diabetes mellitus without complications] Onset: 06-02-2021 Chronic Disorders of lipid metabolism (20 sources) Hyperlipidemia; Translations: [Hyperlipidemia, unspecified] Onset: 02-28-2020 02-28-2020 Chronic Esophageal disorders (20 sources) Gastroesophageal reflux disease without esophagitis; Translations: [Gastro-esophageal reflux disease without esophagitis] Onset: 06-02-2021 06-02-2021 Chronic Nutritional deficiencies (20 sources) Vitamin D deficiency; Translations: [Vitamin D deficiency, unspecified] Onset: 01-12-2018 01-12-2018 Chronic Open wounds of extremities (1 source) Laceration of left ring finger; Translations: [Laceration without foreign body of left ring finger without damage to nail, initial encounter] Episodic Osteoarthritis (20 sources) Arthritis of hip; Translations: [Unilateral primary osteoarthritis, unspecified hip] Onset: 01-12-2018 01-12-2018 Chronic Osteoporosis (20 sources) Osteoporosis; Translations: [Age-related osteoporosis without current pathological fracture] Onset: 01-12-2018 01-12-2018 Chronic Other aftercare (1 source) Removal of sutures done; Translations: [Encounter for removal of sutures] Episodic Other aftercare (1 source) Wound finding; Translations: [Encounter for other specified aftercare] Episodic Other non-traumatic joint disorders (1 source) Pain in left knee; Translations: [Pain in joint, lower leg] Episodic Other upper respiratory infections (1 source) Bacterial sinusitis; Translations: [Chronic sinusitis, unspecified] 04-28-2023 Chronic Residual codes; unclassified (1 source) Other specified personal risk factors, not elsewhere classified; Translations: [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] Onset: 06-14-2023 Episodic Viral infection (1 source) Disease caused by 2019-nCoV; Translations: [COVID-19] Episodic Past or Other Problems Problem Classification Problem Date Documented Da te Episodic/Chronic Diabetes mellitus without complication (20 sources) Impaired fasting glycemia; Translations: [Impaired fasting glucose] Onset: 02-28-2020 02-28-2020 Episodic Other screening for suspected conditions (not mental disorders or infectious disease) (6 sources) Patient encounter status; Translations: [Encounter for screening mammogram for malignant neoplasm of breast] Onset: 03-16-2023 Episodic Spondylosis; intervertebral disc disorders; other back problems (20 sources) Chronic low back pain; Translations: [Lumbago with sciatica, right side] Onset: 11-29-2016 11-29-2016 Episodic Results Test Name Value Interpretation Reference Range Facil ity Vital Signs Date Time Vital Sign Value Performing Clinician Faci [email or web address] 09-07-2023 08:51-0500 Body weight 79.42 kg Wilfred Rodriguez MD Work Phone: [facility] 09-07-2023 08:51-0500 Diastolic blood pressure 80 mm[Hg] Wilfred Rodriguez MD Work Phone: [facility] 09-07-2023 08:51-0500 Heart rate 78 /min Wilfred Rodriguez MD Work Phone: [facility] 09-07-2023 08:51-0500 Respiratory rate 16 /min Wilfred Rodriguez MD Work Phone: [facility] 09-07-2023 08:51-0500 Systolic blood pressure 130 mm[Hg] Wilfred Rodriguez MD Work Phone: [facility] 06-14-2023 11:21-0400 Body weight 79.38 kg Sadie Knott MD Work Phone: [facility] 06-14-2023 11:21-0400 Diastolic blood pressure 68 mm[Hg] Sadie Knott MD Work Phone: [facility] 06-14-2023 11:21-0400 Systolic blood pressure 114 mm[Hg] Sadie Knott MD Work Phone: [facility] 04-28-2023 12:11-0400 Body temperature 98.6 [degF] Cristiano Sorto APRN.CNP Work Phone: [facility] 04-28-2023 12:11-0400 Body weight 78.83 kg Cristiano Phillip SALES RECORD CLERK.CATIA DESIGNER Work Phone: [facility] 04-28-2023 12:11-0400 Diastolic blood pressure 75 mm[Hg] Cristiano Phillip SALES RECORD CLERK.CATIA DESIGNER Work Phone: [facility] 04-28-2023 12:11-0400 Heart rate 77 /min Cristiano Phillip SALES RECORD CLERK.CATIA DESIGNER Work Phone: [facility] 04-28-2023 12:11-0400 Respiratory rate 16 /min Cristiano Phillip SALES RECORD CLERK.CATIA DESIGNER Work Phone: [facility] 04-28-2023 12:11-0400 SaO2% (BldA) [Mass fraction] 98 % Cristiano Phillip SALES RECORD CLERK.CATIA DESIGNER Work Phone: [facility] 04-28-2023 12:11-0400 Systolic blood pressure 125 mm[Hg] Cristiano Phillip SALES RECORD CLERK.CATIA DESIGNER Work Phone: [facility] 03-06-2023 12:32-0400 Body weight 77.56 kg Wilfred Rodriguez MD Work Phone: [facility] 03-06-2023 12:32-0400 Diastolic blood pressure 78 mm[Hg] Wilfred Rodriguez MD Work Phone: [facility] 03-06-2023 12:32-0400 Heart rate 68 /min Wilfred Rodriguez MD Work Phone: [facility] 03-06-2023 12:32-0400 Respiratory rate 16 /min Wilfred Rodriguez MD Work Phone: [facility] 03-06-2023 12:32-0400 Systolic blood pressure 116 mm[Hg] Wilfred Rodriguez MD Work Phone: [facility] 01-21-2023 09:36-0400 Body temperature 97 [degF] Franca Newman SALES RECORD CLERK.CATIA DESIGNER Work Phone: [facility] 01-21-2023 09:36-0400 Body weight 77.56 kg Franca Newman SALES RECORD CLERK.CATIA DESIGNER Work Phone: [facility] 01-21-2023 09:36-0400 Heart rate 62 /min Franca Newman SALES RECORD CLERK.CATIA DESIGNER Work Phone: [facility] 01-21-2023 09:36-0400 Respiratory rate 16 /min Franca Newman SALES RECORD CLERK.CATIA DESIGNER Work Phone: [facility] 01-21-2023 09:36-0400 SaO2% (BldA) [Mass fraction] 9 % Franca Newman SALES RECORD CLERK.CATIA DESIGNER Work Phone: [facility] 01-12-2023 13:10-0400 Body temperature 97.81 [degF] Cassandra Athy PA-C Work Phone: [facility] 01-12-2023 13:10-0400 Body weight 78.02 kg Cassandra Athy PA-C Work Phone: [facility] 01-12-2023 13:10-0400 Diastolic blood pressure 80 mm[Hg] Cassandra Athy PA-C Work Phone: [facility] 01-12-2023 13:10-0400 Heart rate 72 /min Cassandra Athy PA-C Work Phone: [facility] 01-12-2023 13:10-0400 Respiratory rate 16 /min Cassandra Athy PA-C Work Phone: [facility] 01-12-2023 13:10-0400 SaO2% (BldA) [Mass fraction] 97 % Cassandra Athy PA-C Work Phone: [facility] 01-12-2023 13:10-0400 Systolic blood pressure 132 mm[Hg] Cassandra Athy PA-C Work Phone: [facility] 09-05-2022 13:50-0500 Body weight 76.39 kg Wilfred Rodriguez MD Work Phone: [facility] 09-05-2022 13:50-0500 Diastolic blood pressure 70 mm[Hg] Wilfred Rodriguez MD Work Phone: [facility] 09-05-2022 13:50-0500 Heart rate 70 /min Wilfred Rodriguez MD Work Phone: [facility] 09-05-2022 13:50-0500 Respiratory rate 16 /min Wilfred Rodriguez MD Work Phone: [facility] 09-05-2022 13:50-0500 Systolic blood pressure 122 mm[Hg] Wilfred Rodriguez MD Work Phone: [facility] 05-24-2022 15:57-0400 Body weight 77.11 kg Sadie Knott MD Work Phone: [facility] 05-24-2022 15:57-0400 Diastolic blood pressure 68 mm[Hg] Sadie Knott MD Work Phone: [facility] 05-24-2022 15:57-0400 Systolic blood pressure 124 mm[Hg] Sadie Knott MD Work Phone: [facility] 01-07-2022 09:10-0400 Body weight 80.74 kg Wilfred Rodriguez MD Work Phone: [facility] 01-07-2022 09:10-0400 Diastolic blood pressure 74 mm[Hg] Wilfred Rodriguez MD Work Phone: [facility] 01-07-2022 09:10-0400 Heart rate 68 /min Wilfred Rodriguez MD Work Phone: [facility] 01-07-2022 09:10-0400 Respiratory rate 14 /min Wilfred Rodriguez MD Work Phone: [facility] 01-07-2022 09:10-0400 Systolic blood pressure 136 mm[Hg] Wilfred Rodriguez MD Work Phone: [facility] Encounters Encounter Date Encounter Type Care Provider Facility Start: 09-07-2023 End: 09-07-2023 ambulatory WILFRED RODRIGUEZ Facility:[facility] Start: 09-07-2023 End: 09-07-2023 Patient encounter procedure Wilfred Rodriguez MD Work Phone: [facility] Procedures Date Procedure Procedure Detail Performing Clinician Start: 03-16-2023 End: 03-16-2023 Mammography Sadie Knott MD Work Phone: Start: 03-08-2022 End: 03-08-2022 Mammography Jillian Gaspar LIEN COOPER Work Phone: Start: 06-01-2021 Adult depression scr eening assessment Wilfred Rodriguez MD Work Phone: Start: 02-25-2021 Mammography Wilfred andrew MD Work Phone: Start: 07-18-2016 Colonoscopy Wilfred andrew MD Work Phone: Plan of Treatment Date Care Activity Detail Author Start: 01-12-2033 Urine microalbumin profile [facility] Start: 09-20-2027 Urine microalbumin profile DTAP,TDAP,TD (2 - Td or Tdap) [facility] Start: 07-18-2026 Colonoscopy COLONOSCOPY [facility] Start: 07-18-2026 COLORECTAL CANCER SCREENING COLORECTAL CANCER SCREENING [facility] Start: 09-07-2024 Annual PCP Team Chronic Disease Visit Annual PCP Team Chronic Disease Visit [facility] Start: 09-04-2024 Hepatitis B surface antibody level LDL Cholesterol [facility] Start: 08-08-2024 Hepatitis C antibody, confirmatory test Dilated Retinal Exam [facility] Start: 04-28-2024 ANNUAL PCP TEAM CHRONIC DISEASE VISIT ANNUAL PCP TEAM CHRONIC DISEASE VISIT [facility] Start: 03-27-2024 3 comp foot exam completed Diabetic Foot Exam [facility] Start: 03-16-2024 Mammography [facility] Start: 03-08-2024 End: 06-07-2024 ALBUMIN/CREAT RATIO RND UR ALBUMIN/CREAT RATIO RND UR Lab Routine Type 2 diabetes mellitus without complication, without long-term current use of insulin (HCC) Expected: 03/08/2024 (Approximate), Expires: 06/07/2024 [facility] Work Phone: Immunizations Immunization Date Immunization Notes Care Provider Fa javan 08-09-2023 COVID-19 vaccine, ag e 12+ yr, season (Partly) Wilfred Rodriguez MD Work Phone: [facility] 07-20-2023 influenza, high dose seasonal, preservative-free Wilfred Rodriguez MD Work Phone: [facility] 01-12-2023 tetanus and diphther ia toxoids, adsorbed, preservative free, for adult use (5 Lf of tetanus toxoid and 2 Lf of diphtheria toxoid) Cassandra Sharma PA-C Work Phone: [facility] Work Phone: 01-12-2023 TD(adult) unspecifie d formulation Cassandra Sharma PA-C Work Phone: [facility] Work Phone: 08-19-2022 COVID-19 booster vaccine, age 12+ yr, bivalent (PFIZER-BIONTECH) Wilfred Rodriugez MD Work Phone: [facility] 07-08-2022 influenza, high dose seasonal, preservative-free Franca Newman SALES RECORD CLERK.CATIA DESIGNER Work Phone: [facility] 07-08-2022 influenza virus vaccine, unspecified formulation Sadie Knott MD Work Phone: [facility] 07-19-2021 COVID-19 vaccine, ag e 12+ yr (PFIZER-BIONTECH - PURPLE TOP) Wilfred Rodriguez MD Work Phone: [facility] 06-19-2021 influenza, high dose seasonal, preservative-free Wilfred Rodriguez MD Work Phone: [facility] 12-21-2020 COVID-19 vaccine, ag e 12+ yr (PFIZER-BIONTECH - PURPLE TOP) Wilfred Rodriguez MD Work Phone: [facility] 11-30-2020 COVID-19 vaccine, ag e 12+ yr (PFIZER-BIONTECH - PURPLE TOP) Wilfred Rodriguez MD Work Phone: [facility] 08-17-2020 zoster vaccine recombinant Wilfred Rodriguez MD Work Phone: [facility] 07-23-2020 influenza virus vaccine, unspecified formulation Wilfred Rodriguez MD Work Phone: [facility] 07-23-2020 influenza, high dose seasonal, preservative-free Wilfred Rodriguez MD Work Phone: [facility] 05-04-2020 zoster vaccine recombinant Wilfred Rodriguez MD Work Phone: [facility] 04-14-2020 pneumococcal polysaccharide vaccine, 23 valent Wilfred Rodriguez MD Work Phone: [facility] Work Phone: 09-20-2017 tetanus toxoid, redu sammy diphtheria toxoid, and acellular pertussis vaccine, adsorbed Wilfred Rodriguez MD Work Phone: [facility] 05-14-2015 zoster vaccine, live Wilfred pena MD Work Phone: [facility] Work Phone: 12-24-2014 pneumococcal conjuga te vaccine, 13 valent Wilfred Rodriguez MD Work Phone: [facility] Work Phone: Payers Date Payer Category Payer Medicare MEDICARE MEDICAR E A AND B [id number] 2016-Present [phone] [place] [address] Medicare [id number] 2016 Medicare MEDICARE MEDICAR E A AND B [id number] 2016-Present [phone] [place] [address] Medicare [id number] 2016 Medicare [id number] 2016 Private Health Insurance [facility] AARP SUPPLEMENT [id number] 2016-Present [phone] [address] [place] [address] Indemnity [id number] 2016 Private Health Insurance [facility] AARP SUPPLEMENT [id number] 2016-Present [phone] [address] [place] [address] Dorcas [id number] 2016 Unknown [id number] Social History Date Type Detail Facility Start: 08-24-2016 End: 07-27-2022 Tobacco smoking status NHIS Never smoked tobacco [facility] Start: 08-24-2016 End: 07-27-2022 Tobacco use and exposure Smokeless tobacco non-user [facility] Start: 12-02-2021 End: 09-07-2023 Alcohol intake Current non-drinker of alcohol (finding) [facility] Start: 06-01-2021 End: 01-06-2022 History SDOH Alcohol Frequency 1 [facility] Start: 06-01-2021 History SDOH Social Connections Phone 5 [facility] Start: 06-01-2021 History SDOH Social Connections Get Together 4 [facility] Start: 06-01-2021 End: 03-05-2023 History SDOH Social Connections Faith 3 [facility] Start: 06-01-2021 History SDOH Social Connections Membership 98 [facility] Start: 06-01-2021 History SDOH Social Connections Living 7 [facility] Start: 06-01-2021 History SDOH Physica l Activity DPW 6 [facility] Start: 06-01-2021 End: 01-06-2022 History SDOH Physical Activity MPS 2 [facility] Start: 03-27-2020 Education 21 [facility] Start: 1950 Sex Assigned At Not on file [facility] Start: 12-17-2021 End: 09-05-2022 Exposure to SARS-CoV-2 (event) Not sure [facility] Start: 03-05-2023 End: 03-06-2023 History of Social function [place] Start: 03-05-2023 End: 03-06-2023 Social connection and isolation panel [facility] In a typical week, h ow many times do you talk on the telephone with family, friends, or neighbors? Patient refused [facility] Are you now , , , , never or living with a partner? Refused [facility] (I/We) worried justo er (my/our) food would run out before (I/we) got money to buy more. DK or Refused [facility] Clinical Notes 01-07-2022 to 09-07-2023 Wilfred Rodriguez MD - 09/07/2023 9:00 AM ESTPatient InstructionsTelephone Encounter - Delores Albarado Ma - 08/08/2023 1:23 PM Sadie Hopson MD - 06/14/2023 11:21 AM EDT Note Date & Type Note Facility 09-07-2023 Note HNO ID: [id number] Author: Wilfred Rodriguez MD Service: ? Author Type: Physician Type: Progress Notes Filed: 09/07/2023 9:57 AM Note Text: Chief Complaint Patient presents with: 6 Month Exam HPI Mariluz Mandujano is a 73 year old female who presents here today for 6 month follow up. Since May she has had several vacations, went to [place] for 3 weeks and zip lined at the [place], and did some road trips to other states. Denies any bowel, Gi, or urinary issues. Reflux sx stable, no longer uses Prilosec 40 mg. Lipid: Not taking any medications, controlling with diet and exercise. She has not been watching diet as well due to all her traveling. DM: Checks BS occ, FBS 116-134. No hypoglycemic episodes or neuropathy sx. Taking Metformin xr 500 mg 2 pills once daily. Follows with [facility] Dr. Mitchell. She has not been watching diet as well due to all her traveling. No chest pains, dizziness, or SOB. Her BP is slightly elevated today during visit, normally runs in the 120/70 or lower range. Hand: right index finger, small callused cyst. No pain, no redness, no drainage. Past medical history, appointments, medications, allergies reviewed. Previous Medical History PAST MEDICAL HISTORY Diagnosis Date Arthritis of hip 01/12/2018 2018: R hip Breast cancer (HCC) R breast, stage II s/p radiation treatment Lumbago Previous Surgical History PAST SURGICAL HISTORY Procedure Laterality Date ARTHRP ACETBLR/PROX FEM PROSTC AGRFT/ALGRFT Right 05/2019 BREAST LUMPECTOMY HX 10/2011 HYSTERECTOMY HX 1990 endometriosis, heavy menses KNEE SURGERY HX 2004 TONSILLECTOMY PRIMARY/SECONDARY Tonsillectomy TOTAL KNEE REPLACEMENT Left 02/09/2022 Dr. Tran Family History FAMILY HISTORY Problem Relation Age of Onset Cancer Paternal Uncle LUNG Cancer Paternal Uncle BREAST Cancer Paternal Uncle BREAST Heart Father Colon Cancer Maternal Aunt Breast Cancer Maternal Aunt Patient Allergies ALLERGIES Allergen Reactions Ampicillin Rash Adhesive Rash Current Medications Current Outpatient Medications on File Prior to Visit Medication Sig metFORMIN ER (GLUCOPHAGE XR) 500 mg 24 hr tablet Take 2 tablets by mouth daily with breakfast. cetirizine (ZYRTEC) 10 mg tablet Take 10 mg by mouth once daily as needed. Cholecalciferol, Vitamin D3, 2,000 unit cap Take 2 capsules by mouth once daily. CALCIUM ORAL Take 1,200 mg by mouth once daily. cyanocobalamin (VITAMIN B-12) 500 mcg tablet Take 1 tablet by mouth once daily. MULTIVITAMIN (MULTIPLE VITAMIN ESSENTIAL ORAL) Take 1 capsule by mouth once daily. No current facility-administered medications on file prior to visit. Social History Social History Tobacco Use Smoking status: Never Smokeless tobacco: Never Vaping Use Vaping Use: Never used Substance Use Topics Alcohol use: No Drug use: No EXAM: BP 130/80 Pulse 78 Resp 16 Wt 79.4 kg (175 lb 1.6 oz) BMI 31.02 kg/m? General Appearance: Well appearing, alert, in no acute distress, well-hydrated, well nourished. and Overweight. Lungs: Lungs clear to auscultation. No wheezing, rhonchi, rales.. Heart: RRR without murmur, gallop, or rubs. No ectopy. Finger: right index; ganglion cyst Health Maintenance List Hepatitis B Vaccine(1 of 3 - Risk 3-dose series) Never done RSV Vaccine(1 - 1-dose 60+ series) Never done Advance Directive Discussion due on 10/02/2022 HbA1C due on 08/31/2023 Urine Albumin:Creatinine Ratio due on 02/29/2024 LDL Cholesterol due on 02/29/2024 Mammogram Screening due on 03/16/2024 Diabetic Foot Exam due on 03/27/2024 Annual PCP Team Chronic Disease Visit due on 04/28/2024 Dilated Retinal Exam due on 08/08/2024 Colorectal Cancer Screening due on 07/18/2026 DTaP,Tdap,Td Vaccine(3 - Td or Tdap) due on 01/12/2033 Bone Density Screening Completed Influenza Vaccine Completed Depression Assessment Completed Hepatitis C Screening Completed Shingrix Vaccine Completed Covid-19 Vaccine Completed Pneumococcal Vaccine: 65+ Completed Data reviewed Appointment on 09/04/2023 Component Date Value Protein, Total 09/04/2023 6.5 Albumin 09/04/2023 4.4 Calcium, Total 09/04/2023 9.5 Bilirubin, Total 09/04/2023 0.6 Alkaline Phosphatase 09/04/2023 83 AST 09/04/2023 24 ALT 09/04/2023 31 Glucose 09/04/2023 150 (H) BUN 09/04/2023 15 Creatinine 09/04/2023 0.69 Sodium 09/04/2023 138 Potassium 09/04/2023 4.3 Chloride 09/04/2023 105 CO2 09/04/2023 23 Anion Gap 09/04/2023 10 Estimated Glomerular Elmer* 09/04/2023 91 Hemoglobin A1C 09/04/2023 6.3 (H) Estimated Average Glucose 09/04/2023 134 Cholesterol, Total 09/04/2023 195 Triglyceride 09/04/2023 122 HDL Cholesterol 09/04/2023 45 Non HDL Cholesterol 09/04/2023 150 (H) Fasting Time 09/04/2023 12 VLDL Cholesterol 09/04/2023 24 TC:HDL Ratio 09/04/2023 4.33 LDL Cholesterol 09/04/2023 126 (H) LDL:HDL Ratio 09/04/2023 2.80 (H) ASSESSMENT/PLAN: (more content not included)... [facility] 09-07-2023 History of Presen t illness Narrative Chief Complaint Patient presents with: 6 Month Exam HPI Mariluz Mandujano is a 73 year old female who presents here today for 6 month follow up. Since May she has had several vacations, went to [place] 3 weeks and zip lined [place], and did some road trips to other states. Denies any bowel, Gi, or urinary issues. Reflux sx stable, no longer uses Prilosec 40 mg. Lipid: Not taking any medications, controlling with diet and exercise. She has not been watching diet as well due to all her traveling. DM: Checks BS occ, FBS 116-134. No hypoglycemic episodes or neuropathy sx. Taking Metformin xr 500 mg 2 pills once daily. Follows with [facility] Dr. Mitchell. She has not been watching diet as well due to all her traveling. No chest pains, dizziness, or SOB. Her BP is slightly elevated today during visit, normally runs in the 120/70 or lower range. Hand: right index finger, small callused cyst. No pain, no redness, no drainage. Past medical history, appointments, medications, allergies reviewed. Previous Medical History PAST MEDICAL HISTORY Diagnosis Date Arthritis of hip 01/12/2018 2018: R hip Breast cancer (HCC) R breast, stage II s/p radiation treatment Lumbago Previous Surgical History PAST SURGICAL HISTORY Procedure Laterality Date ARTHRP ACETBLR/PROX FEM PROSTC AGRFT/ALGRFT Right 05/2019 BREAST LUMPECTOMY HX 10/2011 HYSTERECTOMY HX 1990 endometriosis, heavy menses KNEE SURGERY HX 2003 TONSILLECTOMY PRIMARY/SECONDARY <AGE 12 Tonsillectomy TOTAL KNEE REPLACEMENT Left 02/09/2022 Dr. Tran Family History FAMILY HISTORY Problem Relation Age of Onset Cancer Paternal Uncle LUNG Cancer Paternal Uncle BREAST Cancer Paternal Uncle BREAST Heart Father Colon Cancer Maternal Aunt Breast Cancer Maternal Aunt Patient Allergies ALLERGIES Allergen Reactions Ampicillin Rash Adhesive Rash Current Medications Current Outpatient Medications on File Prior to Visit Medication Sig metFORMIN ER (GLUCOPHAGE XR) 500 mg 24 hr tablet Take 2 tablets by mouth daily with breakfast. cetirizine (ZYRTEC) 10 mg tablet Take 10 mg by mouth once daily as needed. Cholecalciferol, Vitamin D3, 2,000 unit cap Take 2 capsules by mouth once daily. CALCIUM ORAL Take 1,200 mg by mouth once daily. cyanocobalamin (VITAMIN B-12) 500 mcg tablet Take 1 tablet by mouth once daily. MULTIVITAMIN (MULTIPLE VITAMIN ESSENTIAL ORAL) Take 1 capsule by mouth once daily. No current facility-administered medications on file prior to visit. Social History Social History Tobacco Use Smoking status: Never Smokeless tobacco: Never Vaping Use Vaping Use: Never used Substance Use Topics Alcohol use: No Drug use: No EXAM: BP 130/80 Pulse 78 Resp 16 Wt 79.4 kg (175 lb 1.6 oz) BMI 31.02 kg/m General Appearance: Well appearing, alert, in no acute distress, well-hydrated, well nourished. and Overweight. Lungs: Lungs clear to auscultation. No wheezing, rhonchi, rales.. Heart: RRR without murmur, gallop, or rubs. No ectopy. Finger: right index; ganglion cyst Health Maintenance List Hepatitis B Vaccine(1 of 3 - Risk 3-dose series) Never done RSV Vaccine(1 - 1-dose 60+ series) Never done Advance Directive Discussion due on 10/02/2022 HbA1C due on 08/31/2023 Urine Albumin:Creatinine Ratio due on 02/29/2024 LDL Cholesterol due on 02/29/2024 Mammogram Screening due on 03/16/2024 Diabetic Foot Exam due on 03/27/2024 Annual PCP Team Chronic Disease Visit due on 04/28/2024 Dilated Retinal Exam due on 08/08/2024 Colorectal Cancer Screening due on 07/18/2026 DTaP,Tdap,Td Vaccine(3 - Td or Tdap) due on 01/12/2033 Bone Density Screening Completed Influenza Vaccine Completed Depression Assessment Completed Hepatitis C Screening Completed Shingrix Vaccine Completed Covid-19 Vaccine Completed Pneumococcal Vaccine: 65+ Completed Data reviewed Appointment on 09/04/2023 Component Date Value Protein, Total 09/04/2023 6.5 Albumin 09/04/2023 4.4 Calcium, Total 09/04/2023 9.5 Bilirubin, Total 09/04/2023 0.6 Alkaline Phosphatase 09/04/2023 83 AST 09/04/2023 24 ALT 09/04/2023 31 Glucose 09/04/2023 150 (H) BUN 09/04/2023 15 Creatinine 09/04/2023 0.69 Sodium 09/04/2023 138 Potassium 09/04/2023 4.3 Chloride 09/04/2023 105 CO2 09/04/2023 23 Anion Gap 09/04/2023 10 Estimated Glomerular Elmer* 09/04/2023 91 Hemoglobin A1C 09/04/2023 6.3 (H) Estimated Average Glucose 09/04/2023 134 Cholesterol, Total 09/04/2023 195 Triglyceride 09/04/2023 122 HDL Cholesterol 09/04/2023 45 Non HDL Cholesterol 09/04/2023 150 (H) Fasting Time 09/04/2023 12 VLDL Cholesterol 09/04/2023 24 TC:HDL Ratio 09/04/2023 4.33 LDL Cholesterol 09/04/2023 126 (H) LDL:HDL Ratio 09/04/2023 2.80 (H) ASSESSMENT/PLAN: 1. Type 2 diabetes mellitus without complication, without long-term current use of insulin (HCC) - ICD9: 250.00, ICD10: E11.9 (primary diagnosis) - Controlled - Continue current medications - Counseled on healthy diet and regular exercise - Discussed need for and benefit of weight loss. BMI 31.02 kg/(m^2) - 2. Hyperlipidemia with target LDL less than 100 - ICD9: 272.4, ICD10: E78.5 - Controlled - Continue current medications - Counseled on healthy diet and regular exercise - Discussed need for and benefit of weight loss. BMI 31.02 kg/(m^2) 3. GERD without esophagitis - ICD9: 530.81, ICD10: K21.9 - stable No longer on Prilosec Follow up in 6 months with fasting labs and urine test prior. I agree with the Chief Complaint, ROS, and Past Histories independently gathered by the clinical business support administrator and the remaining scribed note accurately describes my personal service to the patient. Medical Decision Making: Problems: Moderate: 2+ stable chronic illnesses Data: Unique test result(s) reviewed: 3+ Unique test(s) ordered: 3+ Risk: Moderate: Drug management Medical Decision Making Level: 4 - Moderate Wilfred Rodriguez MD The documentation for this note was completed by Delores Albarado Ma acting as scribe for Wilfred Rodriguez MD. September 07, 2023 9:10 AM. Delores Albarado Ma documented in this encounter [facility] 09-07-2023 Instructions Delores Albarado Ma - 09/07/2023 8:58 AM EST Please bring a copy of your advanced directive and DNR form to the office so we can scan it into your chart. If you decide to get the RSV vaccine you will need to get this at your local pharmacy. Anyone 65 and older needs to get at local pharmacy. documented in this encounter [facility] 08-08-2023 Miscellaneous Notes Chart updated. documented in this encounter [facility] 07-31-2023 Miscellaneous Notes The following approved medication requests have been transmitted electronically. Requested Prescriptions Pending Prescriptions Disp Refills metFORMIN ER (GLUCOPHAGE XR) 500 mg 24 hr tablet 180 tablet 1 Sig: Take 2 tablets by mouth daily with breakfast. Cristiano Sorto APRN.CNP Patient has been identified by name and date of : Yes Requested Prescriptions Pending Prescriptions Disp Refills metFORMIN ER (GLUCOPHAGE XR) 500 mg 24 hr tablet 180 tablet 1 Sig: Take 2 tablets by mouth daily with breakfast. RX INSTRUCTIONS: Patient aware RX will be sent to pharmacy. No need to notify patient. Patient last office visit: 04/28/23 Patient next office visit: 09/07/23 Maryma Birmingham MA documented in this encounter [facility] 06-14-2023 Note HNO ID: [id number] Author: Sadie Knott MD Service: ? Author Type: Physician Type: Progress Notes Filed: 06/14/2023 11:43 AM Note Text: Mariluz is a 73 year old who presents for an annual gynecologic exam without complaints. Postmenopausal: yes and s/p hyst HRT use: No. Last Pap: normal HPV: negative History of abnormal pap: No Last mammogram: 2022 normal History of abnormal mammogram: Yes OB History T0 L0 SAB0 IAB0 Ectopic0 Multiple0 Live Births0 [employer] History LMP: Hysterectomy Age at Menarche: Age at First : Age at Menopause: [employer] History Comments: Sexual Activity: Not Asked; No partner data on record; hysterectomy Contraception: Surgical PAST MEDICAL HISTORY Diagnosis Date Arthritis of hip 01/12/2018 2018: R hip Breast cancer (HCC) R breast, stage II s/p radiation treatment Lumbago PAST SURGICAL HISTORY Procedure Laterality Date ARTHRP ACETBLR/PROX FEM PROSTC AGRFT/ALGRFT Right 05/2019 BREAST LUMPECTOMY HX 10/2011 HYSTERECTOMY HX 1990 endometriosis, heavy menses KNEE SURGERY HX 2003 TONSILLECTOMY PRIMARY/SECONDARY Tonsillectomy TOTAL KNEE REPLACEMENT Left 02/09/2022 Dr. Tran FAMILY HISTORY Problem Relation Age of Onset Cancer Paternal Uncle LUNG Cancer Paternal Uncle BREAST Cancer Paternal Uncle BREAST Heart Father Colon Cancer Maternal Aunt Breast Cancer Maternal Aunt SOCIAL HISTORY Social History Tobacco Use Smoking status: Never Smokeless tobacco: Never Vaping Use Vaping Use: Never used Substance Use Topics Alcohol use: No Drug use: No REVIEW OF SYSTEMS Abdomen: no changes in BM Bladder: No dysuria, gross hematuria, urinary frequency, urinary urgency, or incontinence Breast: No breast lumps, nipple d/c, overlying skin changes, redness or skin retraction Allergies and current medication updated:Yes EXAM: BP 114/68 Wt 175 lb (79.4kg) GENERAL: pleasant, female in no apparent distress HEENT: Normocephalic, atraumatic, mucus membranes moist, and no lesions NECK: Supple, full range of motion, no adenopathy, and thyroid normal DERMATOLOGY: Normal, without lesions, non-icteric, and non-hirsute BREAST: soft, non-tender, no dominant mass, normal nipple-areolar complex, no lymphadenopathy, no nipple discharge, and scar on right from previous lumpectomy noted CHEST: Normal inspiratory effort ABDOMEN: soft, non-tender, and no masses PELVIC: external genitalia normal, normal Bartholin's glands, urethra, [place]'s glands, no vulvar lesions, physiologic discharge present, normal appearing perineal body and perianal region, cervix surgically absent, cystocele 1st degree, rectocele 1st degree, flattened atrophic epithelium BIMANUAL: no adnexal masses, non-tender, and uterus surgically absent RECTOVAGINAL: deferred. NEURO: alert and oriented x3,exam grossly non-focal EXTREMITIES: normal ASSESSMENT/PLAN: 1) Health maintenance: Pap/HPV screening no longer needed Mammogram ordered Colon cancer screening: up to date with screening 2) Follow up one year or sooner as needed Sadie Knott MD [facility] 06-14-2023 History of Presen t illness Narrative Mariluz is a 73 year old who presents for an annual gynecologic exam without complaints. Postmenopausal: yes and s/p hyst HRT use: No. Last Pap: normal HPV: negative History of abnormal pap: No Last mammogram: 2022 normal History of abnormal mammogram: Yes OB History T0 L0 SAB0 IAB0 Ectopic0 Multiple0 Live Births0 [employer] History LMP: Hysterectomy Age at Menarche: Age at First : Age at Menopause: [employer] History Comments: Sexual Activity: Not Asked; No partner data on record; hysterectomy Contraception: Surgical PAST MEDICAL HISTORY Diagnosis Date Arthritis of hip 01/12/2018 2018: R hip Breast cancer (HCC) R breast, stage II s/p radiation treatment Lumbago PAST SURGICAL HISTORY Procedure Laterality Date ARTHRP ACETBLR/PROX FEM PROSTC AGRFT/ALGRFT Right 05/2019 BREAST LUMPECTOMY HX 10/2011 HYSTERECTOMY HX 1990 endometriosis, heavy menses KNEE SURGERY HX 2003 TONSILLECTOMY PRIMARY/SECONDARY <AGE 11 Tonsillectomy TOTAL KNEE REPLACEMENT Left 02/09/2022 Dr. Tran FAMILY HISTORY Problem Relation Age of Onset Cancer Paternal Uncle LUNG Cancer Paternal Uncle BREAST Cancer Paternal Uncle BREAST Heart Father Colon Cancer Maternal Aunt Breast Cancer Maternal Aunt SOCIAL HISTORY Social History Tobacco Use Smoking status: Never Smokeless tobacco: Never Vaping Use Vaping Use: Never used Substance Use Topics Alcohol use: No Drug use: No REVIEW OF SYSTEMS Abdomen: no changes in BM Bladder: No dysuria, gross hematuria, urinary frequency, urinary urgency, or incontinence Breast: No breast lumps, nipple d/c, overlying skin changes, redness or skin retraction Allergies and current medication updated:Yes EXAM: BP 114/68 Wt 175 lb (79.4kg) GENERAL: pleasant, female in no apparent distress HEENT: Normocephalic, atraumatic, mucus membranes moist, and no lesions NECK: Supple, full range of motion, no adenopathy, and thyroid normal DERMATOLOGY: Normal, without lesions, non-icteric, and non-hirsute BREAST: soft, non-tender, no dominant mass, normal nipple-areolar complex, no lymphadenopathy, no nipple discharge, and scar on right from previous lumpectomy noted CHEST: Normal inspiratory effort ABDOMEN: soft, non-tender, and no masses PELVIC: external genitalia normal, normal Bartholin's glands, urethra, [place]'s glands, no vulvar lesions, physiologic discharge present, normal appearing perineal body and perianal region, cervix surgically absent, cystocele 1st degree, rectocele 1st degree, flattened atrophic epithelium BIMANUAL: no adnexal masses, non-tender, and uterus surgically absent RECTOVAGINAL: deferred. NEURO: alert and oriented x3,exam grossly non-focal EXTREMITIES: normal ASSESSMENT/PLAN: 1) Health maintenance: Pap/HPV screening no longer needed Mammogram ordered Colon cancer screening: up to date with screening 2) Follow up one year or sooner as needed Sadie Knott MD documented in this encounter [facility] 04-28-2023 Note HNO ID: [id number] Author: Cristiano Sorto APRN.CATIA DESIGNER Service: ? Author Type: Nurse Practitioner Type: Progress Notes Filed: 04/28/2023 12:25 PM Note Text: Chief Complaint Patient presents with: Sinusitis: X 2 months HPI Mariluz Mandujano is a 72 year old female who presents here today for Above Complaints. ENT: Patient complains of sinus pressure, especially when bending over Duration: intermittently over 2 months Fever: No. Headache: Yes. intermittent Sore throat: No. Ear pain: No. Nasal drainage: Yes. Cough: No. Shortness of breath: No. Nausea: occasionally Vomiting: No. Diarrhea: No. Previous treatment: Yes. Started a decongestant. On oral zyrtec. She states that she follows with ENT. She had ear issues in January. Mentions that she has a zpack in past, which helped. Past medical history, appointments, medications, allergies reviewed. EXAM: BP 125/75 Pulse 77 Temp 37 ?C (98.6 ?F) (Oral) Resp 16 Wt 78.8 kg (173 lb 12.8 oz) SpO2 98% BMI 30.79 kg/m? General Appearance: Well appearing, alert, in no acute distress, well-hydrated, well nourished.. Head: Normocephalic, no masses, lesions, tenderness or abnormalities. Eyes: Anicteric sclera. Pupils are equally round and reactive to light. Extraocular movements are intact. . Ears: External ears normal, canals clear. Nose/Sinuses: Positive findings: mucosa swollen, pale, and boggy. Oropharynx: Lips, mucosa, and tongue normal, teeth and gums normal, oropharynx normal. Lungs: Lungs clear to auscultation. No wheezing, rhonchi, rales.. ASSESSMENT/PLAN: 1. Bacterial sinusitis - ICD9: 473.9, 041.9, ICD10: J32.9, B96.89 -Continue with Zyrtec as prescribed. Trial azithromycin for sinusitis. Discussed not most optimal antibiotic. Did not like doxy. Allergic to PCN. Back to ENT if not improving. - AZITHROMYCIN 250 MG TABLET Cristiano Sorto SALES RECORD CLERK.CATIA DESIGNER This note was partly generated using [employer] voice recognition dictation and may contain some misspelled or inaccurate words missed on review. [facility] 04-28-2023 History of Presen t illness Narrative Chief Complaint Patient presents with: Sinusitis: X 2 months HPI Mariluz Mandujano is a 72 year old female who presents here today for Above Complaints. ENT: Patient complains of sinus pressure, especially when bending over Duration: intermittently over 2 months Fever: No. Headache: Yes. intermittent Sore throat: No. Ear pain: No. Nasal drainage: Yes. Cough: No. Shortness of breath: No. Nausea: occasionally Vomiting: No. Diarrhea: No. Previous treatment: Yes. Started a decongestant. On oral zyrtec. She states that she follows with ENT. She had ear issues in January. Mentions that she has a zpack in past, which helped. Past medical history, appointments, medications, allergies reviewed. EXAM: BP 125/75 Pulse 77 Temp 37 C (98.6 F) (Oral) Resp 16 Wt 78.8 kg (173 lb 12.8 oz) SpO2 98% BMI 30.79 kg/m General Appearance: Well appearing, alert, in no acute distress, well-hydrated, well nourished.. Head: Normocephalic, no masses, lesions, tenderness or abnormalities. Eyes: Anicteric sclera. Pupils are equally round and reactive to light. Extraocular movements are intact. . Ears: External ears normal, canals clear. Nose/Sinuses: Positive findings: mucosa swollen, pale, and boggy. Oropharynx: Lips, mucosa, and tongue normal, teeth and gums normal, oropharynx normal. Lungs: Lungs clear to auscultation. No wheezing, rhonchi, rales.. ASSESSMENT/PLAN: 1. Bacterial sinusitis - ICD9: 473.9, 041.9, ICD10: J32.9, B96.89 -Continue with Zyrtec as prescribed. Trial azithromycin for sinusitis. Discussed not most optimal antibiotic. Did not like doxy. Allergic to PCN. Back to ENT if not improving. - AZITHROMYCIN 250 MG TABLET Cristiano Sorto APRN.CATIA DESIGNER This note was partly generated using [employer] voice recognition dictation and may contain some misspelled or inaccurate words missed on review. 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 Mandujano, We are pleased to inform you that the results of your recent breast imaging exam on 03/16/2023 are normal. Early detection of cancer is very important. We also understand recommendations regarding breast cancer screening are controversial. Please discuss with your primary care provider which strategy is best for you and whether a mammogram is right for you. Your imaging studies and report will be kept on file at [facility] as part of your permanent medical record and are available for your continuing care. Thank you for allowing us to help in meeting your health care needs. Sincerely, Dr. Faust Interpreting Radiologist [facility] (Normal over 40) documented in this encounter [facility] 03-16-2023 Note HNO ID: [id number] Author: Jh Shaffer Service: ? Author Type: Insulation Cutter Type: Progress Notes Filed: 03/16/2023 10:07 AM Note Text: Radiology Service Progress Note PATIENT NAME: Mariluz Mandujano DATE OF SERVICE: March 16, 2023 TIME: 9:47 AM PATIENT IDENTITY VERIFICATION COMPLETED USING TWO (2) IDENTIFIERS: Name and Date of confirmed by patient verbally. FALL SCREENING: Has the patient had 2 falls in the last year or 1 fall with injury or currently using an Ambulatory Assistive Device (Walker, Cane, Wheelchair, Crutches, etc.)? No PATIENT GENDER DATA: Female. status: : No status: NO. PATIENT RELEVANT IMPLANT DATA REVIEWED: Not Applicable RADIOLOGY DEPARTMENT: Mammography PERIPHERAL IV DATA: Not applicable SIGNED BY: Jh Shaffer March 16, 2023 9:47 AM [facility] 03-16-2023 History of Presen t illness Narrative Radiology Service Progress Note PATIENT NAME: Mariluz Mandujano DATE OF SERVICE: March 16, 2023 TIME: 9:47 AM PATIENT IDENTITY VERIFICATION COMPLETED USING TWO (2) IDENTIFIERS: Name and Date of confirmed by patient verbally. FALL SCREENING: Has the patient had 2 falls in the last year or 1 fall with injury or currently using an Ambulatory Assistive Device (Walker, Cane, Wheelchair, Crutches, etc.)? No PATIENT GENDER DATA: Female. status: : No status: NO. PATIENT RELEVANT IMPLANT DATA REVIEWED: Not Applicable RADIOLOGY DEPARTMENT: Mammography PERIPHERAL IV DATA: Not applicable SIGNED BY: Jh Shaffer March 16, 2023 9:47 AM documented in this encounter [facility] 03-06-2023 Note HNO ID: [id number] Author: Wilfred Rodriguez MD Service: ? Author Type: Physician Type: Progress Notes Filed: 03/06/2023 12:50 PM Note Text: Chief Complaint Patient presents with: F/U 6 Month HPI Mariluz Mandujano is a 72 year old female who presents here today for 6 month follow up. Went on a [employer] Cruise in March, rode in an underwater scooter. Has another trip planned in May to go to [place]. No bowel, Gi, or urinary concerns. GERD: Sx stable, will occasionally have symptoms. Did change coffee and that has resolved her symptoms mainly. Rare use of Prilosec 40 mg, has not used in over a year. DM: Taking Metformin xr 500 mg 2 pills once daily. Will check sugars at home on occasion, not real often. Denies any hypoglycemic episodes or neuropathy sx. Just made an appt with Ticket Puller, Dr. Mitchell on 03/27/23. She will have them send report to this office. Lipids - Does try to eat healthy, walks daily for exercise. Currently on no medication at this time. Trying to control with diet and exercise. Allergies - Really struggling with allergies right now. Her eyes are watering and itching. Did f/u with ENT this week who suggested she take allergy medication daily. Mammogram scheduled next month. Appt with SUPERVISOR [employer]NA[employer]ESS in May. HM - Does have Adv Dir/Living Will. Declines feeling down, depressed or hopeless. Depression screening tool completed and reviewed. Based on score and interview, patient is not at risk for depression. Screening tool discussed with patient, and I recommended no further intervention at this time. Past medical history, appointments, medications, allergies reviewed. Previous Medical History PAST MEDICAL HISTORY Diagnosis Date Arthritis of hip 01/12/2018 2018: R hip Breast cancer (HCC) R breast, stage II s/p radiation treatment Lumbago Previous Surgical History PAST SURGICAL HISTORY Procedure Laterality Date ARTHRP ACETBLR/PROX FEM PROSTC AGRFT/ALGRFT Right 05/2019 BREAST LUMPECTOMY HX 10/2011 HYSTERECTOMY HX 1990 endometriosis, heavy menses KNEE SURGERY HX 2003 TONSILLECTOMY PRIMARY/SECONDARY Tonsillectomy TOTAL KNEE REPLACEMENT Left 02/09/2022 Dr. Tran Family History FAMILY HISTORY Problem Relation Age of Onset Cancer Paternal Uncle LUNG Cancer Paternal Uncle BREAST Cancer Paternal Uncle BREAST Heart Father Colon Cancer Maternal Aunt Breast Cancer Maternal Aunt Patient Allergies ALLERGIES Allergen Reactions Ampicillin Rash Adhesive Rash Current Medications Current Outpatient Medications on File Prior to Visit Medication Sig metFORMIN ER (GLUCOPHAGE XR) 500 mg 24 hr tablet TAKE 2 TABLETS BY MOUTH DAILY WITH BREAKFAST. omeprazole (PRILOSEC) 40 mg capsule Take 1 capsule by mouth once daily. cetirizine (ZYRTEC) 10 mg tablet Take 10 mg by mouth once daily as needed. Cholecalciferol, Vitamin D3, 2,000 unit cap Take 2 capsules by mouth once daily. CALCIUM ORAL Take 1,200 mg by mouth once daily. cyanocobalamin (VITAMIN B-12) 500 mcg tablet Take 1 tablet by mouth once daily. MULTIVITAMIN (MULTIPLE VITAMIN ESSENTIAL ORAL) Take 1 capsule by mouth once daily. No current facility-administered medications on file prior to visit. Social History Social History Tobacco Use Smoking status: Never Smokeless tobacco: Never Vaping Use Vaping Use: Never used Substance Use Topics Alcohol use: No Drug use: No EXAM: BP 116/78 (BP Site: Left Arm, BP Position: Sitting, BP Cuff Size: Large Adult) Pulse 68 Resp 16 Wt 77.6 kg (171 lb) BMI 30.29 kg/m? General Appearance: Well appearing, alert, in no acute distress, well-hydrated, well nourished and Overweight. Lungs: Lungs clear to auscultation. No wheezing, rhonchi, rales.. Heart: RRR without murmur, gallop, or rubs. No ectopy. Health Maintenance List DIABETIC FOOT EXAM Never done ADVANCE DIRECTIVE DISCUSSION due on 10/02/2022 DEPRESSION ASSESSMENT due on 10/02/2022 URINE ALBUMIN:CREATININE RATIO due on 11/29/2022 MAMMOGRAM due on 03/08/2023 HBA1C due on 03/02/2023 DILATED RETINAL EXAM due on 07/05/2023 LDL CHOLESTEROL due on 09/01/2023 ANNUAL PCP TEAM CHRONIC DISEASE VISIT due on 09/05/2023 COLORECTAL CANCER SCREENING due on 07/18/2026 DTAP,TDAP,TD(3 - Td or Tdap) due on 01/12/2033 BONE DENSITY Completed INFLUENZA Completed HEPATITIS C SCREENING Completed SHINGRIX VACCINE Completed COVID-19 VACCINE Completed PNEUMOCOCCAL: 65+ Completed Data reviewed Appointment on 02/28/2023 Component Date Value Cholesterol, Total 02/28/2023 193 Triglyceride 02/28/2023 129 HDL Cholesterol 02/28/2023 45 Non HDL Cholesterol 02/28/2023 148 (A) Fasting Time 02/28/2023 12 VLDL Cholesterol 02/28/2023 26 TC:HDL Ratio 02/28/2023 4.29 LDL Cholesterol 02/28/2023 122 (A) LDL:HDL Ratio 02/28/2023 2.71 (A) Protein, Total 02/28/2023 6.5 Albumin 02/28/2023 4.2 Calcium, Total 02/28/2023 9.3 Bilirubin, Total 02/28/2023 0.4 Alkalin (more content not included)... [facility] 03-06-2023 History of Presen t illness Narrative Chief Complaint Patient presents with: F/U 6 Month HPI Mariluz Mandujano is a 72 year old female who presents here today for 6 month follow up. Went on a [employer] Cruise in November, rode in an underwater scooter. Has another trip planned in May to go to [place]. No bowel, Gi, or urinary concerns. GERD: Sx stable, will occasionally have symptoms. Did change coffee and that has resolved her symptoms mainly. Rare use of Prilosec 40 mg, has not used in over a year. DM: Taking Metformin xr 500 mg 2 pills once daily. Will check sugars at home on occasion, not real often. Denies any hypoglycemic episodes or neuropathy sx. Just made an appt with Ticket Puller, Dr. Mitchell on 03/27/23. She will have them send report to this office. Lipids - Does try to eat healthy, walks daily for exercise. Currently on no medication at this time. Trying to control with diet and exercise. Allergies - Really struggling with allergies right now. Her eyes are watering and itching. Did f/u with ENT this week who suggested she take allergy medication daily. Mammogram scheduled next month. Appt with SUPERVISOR [employer] in May. HM - Does have Adv Dir/Living Will. Declines feeling down, depressed or hopeless. Depression screening tool completed and reviewed. Based on score and interview, patient is not at risk for depression. Screening tool discussed with patient, and I recommended no further intervention at this time. Past medical history, appointments, medications, allergies reviewed. Previous Medical History PAST MEDICAL HISTORY Diagnosis Date Arthritis of hip 01/12/2018 2018: R hip Breast cancer (HCC) R breast, stage II s/p radiation treatment Lumbago Previous Surgical History PAST SURGICAL HISTORY Procedure Laterality Date ARTHRP ACETBLR/PROX FEM PROSTC AGRFT/ALGRFT Right 05/2019 BREAST LUMPECTOMY HX 10/2011 HYSTERECTOMY HX 1990 endometriosis, heavy menses KNEE SURGERY HX 2003 TONSILLECTOMY PRIMARY/SECONDARY <AGE 11 Tonsillectomy TOTAL KNEE REPLACEMENT Left 02/09/2022 Dr. Tran Family History FAMILY HISTORY Problem Relation Age of Onset Cancer Paternal Uncle LUNG Cancer Paternal Uncle BREAST Cancer Paternal Uncle BREAST Heart Father Colon Cancer Maternal Aunt Breast Cancer Maternal Aunt Patient Allergies ALLERGIES Allergen Reactions Ampicillin Rash Adhesive Rash Current Medications Current Outpatient Medications on File Prior to Visit Medication Sig metFORMIN ER (GLUCOPHAGE XR) 500 mg 24 hr tablet TAKE 2 TABLETS BY MOUTH DAILY WITH BREAKFAST. omeprazole (PRILOSEC) 40 mg capsule Take 1 capsule by mouth once daily. cetirizine (ZYRTEC) 10 mg tablet Take 10 mg by mouth once daily as needed. Cholecalciferol, Vitamin D3, 2,000 unit cap Take 2 capsules by mouth once daily. CALCIUM ORAL Take 1,200 mg by mouth once daily. cyanocobalamin (VITAMIN B-12) 500 mcg tablet Take 1 tablet by mouth once daily. MULTIVITAMIN (MULTIPLE VITAMIN ESSENTIAL ORAL) Take 1 capsule by mouth once daily. No current facility-administered medications on file prior to visit. Social History Social History Tobacco Use Smoking status: Never Smokeless tobacco: Never Vaping Use Vaping Use: Never used Substance Use Topics Alcohol use: No Drug use: No EXAM: BP 116/78 (BP Site: Left Arm, BP Position: Sitting, BP Cuff Size: Large Adult) Pulse 68 Resp 16 Wt 77.6 kg (171 lb) BMI 30.29 kg/m General Appearance: Well appearing, alert, in no acute distress, well-hydrated, well nourished and Overweight. Lungs: Lungs clear to auscultation. No wheezing, rhonchi, rales.. Heart: RRR without murmur, gallop, or rubs. No ectopy. Health Maintenance List DIABETIC FOOT EXAM Never done ADVANCE DIRECTIVE DISCUSSION due on 10/02/2022 DEPRESSION ASSESSMENT due on 10/02/2022 URINE ALBUMIN:CREATININE RATIO due on 11/29/2022 MAMMOGRAM due on 03/08/2023 HBA1C due on 03/02/2023 DILATED RETINAL EXAM due on 07/05/2023 LDL CHOLESTEROL due on 09/01/2023 ANNUAL PCP TEAM CHRONIC DISEASE VISIT due on 09/05/2023 COLORECTAL CANCER SCREENING due on 07/18/2026 DTAP,TDAP,TD(3 - Td or Tdap) due on 01/12/2033 BONE DENSITY Completed INFLUENZA Completed HEPATITIS C SCREENING Completed SHINGRIX VACCINE Completed COVID-19 VACCINE Completed PNEUMOCOCCAL: 65+ Completed Data reviewed Appointment on 02/28/2023 Component Date Value Cholesterol, Total 02/28/2023 193 Triglyceride 02/28/2023 129 HDL Cholesterol 02/28/2023 45 Non HDL Cholesterol 02/28/2023 148 (A) Fasting Time 02/28/2023 12 VLDL Cholesterol 02/28/2023 26 TC:HDL Ratio 02/28/2023 4.29 LDL Cholesterol 02/28/2023 122 (A) LDL:HDL Ratio 02/28/2023 2.71 (A) Protein, Total 02/28/2023 6.5 Albumin 02/28/2023 4.2 Calcium, Total 02/28/2023 9.3 Bilirubin, Total 02/28/2023 0.4 Alkaline Phosphatase 02/28/2023 81 AST 02/28/2023 20 ALT 02/28/2023 29 Glucose 02/28/2023 126 (A) BUN 02/28/2023 18 Creatinine 02/28/2023 0.69 Sodium 02/28/2023 140 Potassium 02/28/2023 4.1 Chloride 02/28/2023 104 CO2 02/28/2023 26 Anion Gap 02/28/2023 10 Estimated Glomerular Elmer* 02/28/2023 92 Hemoglobin A1C 02/28/2023 6.0 (A) Estimated Average Glucose 02/28/2023 126 Creatinine, Ur Random (U* 02/28/2023 102.9 Albumin, Urine Random 02/28/2023 <12.0 Albumin/Creat Ratio 02/28/2023 <12 ASSESSMENT/PLAN: 1. Type 2 diabetes mellitus without complication, without long-term current use of insulin (HCC) - ICD9: 250.00, ICD10: E11.9 (primary diagnosis) - Controlled - Continue current medications - Counseled on healthy diet and regular exercise - COMP METABOLIC PANEL - HGB A1C - LIPID PANEL BASIC 2. Hyperlipidemia with target LDL less than 100 - ICD9: 272.4, ICD10: E78.5 - Controlled - Counseled on healthy diet and regular exercise; continue to monitor off medication for now - COMP METABOLIC PANEL - LIPID PANEL BASIC 3. GERD without esophagitis - ICD9: 530.81, ICD10: K21.9 - Stable without use of medication 6 mo f/u with labs. I agree with the Chief Complaint, ROS, and Past Histories independently gathered by the clinical business support administrator and the remaining scribed note accurately describes my personal service to the patient. Medical Decision Making: Problems: Moderate: 2+ stable chronic illnesses Data: Unique test result(s) reviewed: 3+ Unique test(s) ordered: 2 Risk: Moderate: Drug management Medical Decision Making Level: 4 - Moderate Wilfred Rodriguez MD The documentation for this note was completed by Gogo Boland Ma acting as scribe for Wilfred Rodriguez MD. March 06, 2023 12:25 PM. Gogo Boland Ma documented in this encounter [facility] 02-18-2023 Note HNO ID: [id number] Author: Ralph Orozco MD Service: ? Author Type: Physician Type: Progress Notes Filed: 02/18/2023 10:42 AM Note Text: Patient presents with: Puncture Wound: right forearm while cleaning stove x 1 day HPI: Patient was cleaning her oven yesterday. The legs for the heating element snagged her right forearm. She is treated with cleansing and pressure bandage. The wound was bleeding through the dressing again this morning so she came for evaluation. Denies pain with finger movement or distal numbness. MEDICATIONS: metFORMIN ER (GLUCOPHAGE XR) 500 mg 24 hr tablet TAKE 2 TABLETS BY MOUTH DAILY WITH BREAKFAST. omeprazole (PRILOSEC) 40 mg capsule Take 1 capsule by mouth once daily. cetirizine (ZYRTEC) 10 mg tablet Take 10 mg by mouth once daily as needed. Cholecalciferol, Vitamin D3, 2,000 unit cap Take 2 capsules by mouth once daily. CALCIUM ORAL Take 1,200 mg by mouth once daily. cyanocobalamin (VITAMIN B-12) 500 mcg tablet Take 1 tablet by mouth once daily. MULTIVITAMIN (MULTIPLE VITAMIN ESSENTIAL ORAL) Take 1 capsule by mouth once daily. ALLERGIES: ALLERGIES Allergen Reactions Ampicillin Rash Adhesive Rash VITALS: BP 142/84 Pulse 100 Temp 36.1 ?C (96.9 ?F) Resp 16 Wt 78 kg (172 lb) SpO2 98% BMI 30.47 kg/m? PE: Pleasant, in no acute distress. Forearm: right mid dosal. Bloody adhesive bandages removed. <1cm skin tear with 2 flaps that are in anatomically approximated. No active bleeding. ASSESSMENT/PLAN: 1. Skin tear of forearm without complication, right, initial encounter - ICD9: 881.00, ICD10: S51.811A Discussed wound care. Dressed with nonadherent pad, bacitracin ointment, and Coban. She has sensitivity to bandage adhesive. Ralph Orozco MD [facility] 01-21-2023 Note HNO ID: [id number] Author: Franca Newman APRN.CATIA DESIGNER Service: ? Author Type: Nurse Practitioner Type: Procedures Filed: 01/21/2023 11:16 AM Note Text: No problems identified with surgical incision. X 2 sutures removed without difficulty. Well-approximated. No signs and symptoms of infection. Reviewed wound care with patient with good understanding. Aware to phone office with any questions or concerns. [facility] 01-21-2023 Note HNO ID: [id number] Author: Franca Newman APRN.CATIA DESIGNER Service: ? Author Type: Nurse Practitioner Type: Progress Notes Filed: 01/21/2023 11:16 AM Note Text: This note was created using NoteWriter. Subjective Mariluz Mandujano is a 72 year old female. 72 year old female with PMH hyperlipidemia, GERD, DM and arthritis presents for suture removal Had sutures placed 01/12/23 here in the [facility] care The below is from the exam Presents with a chief complaint of left ring finger laceration. She was using a knife to cut a foam mattress Topper when it slipped and cut the tip of her finger. No numbness or tingling. It was still bleeding so she came in for evaluation. Last tetanus vaccine over 5 years ago. Left finger X 2 sutures placed Patient endorses things have been good Denies increase pain, redness or drainage Denies fever or chills The history is provided by the patient. No full time staff interpreter was used. Suture Removal This is a new problem. The current episode started more than 1 week ago. The problem occurs constantly. The problem has been gradually improving. Pertinent negatives include no chest pain, no abdominal pain, no headaches and no shortness of breath. Nothing aggravates the symptoms. Nothing relieves the symptoms. She has tried nothing for the symptoms. The treatment provided no relief. PAST MEDICAL HISTORY Diagnosis Date Arthritis of hip 01/12/2018 2018: R hip Breast cancer (HCC) R breast, stage II s/p radiation treatment Lumbago PAST SURGICAL HISTORY Procedure Laterality Date ARTHRP ACETBLR/PROX FEM PROSTC AGRFT/ALGRFT Right 05/2019 BREAST LUMPECTOMY HX 10/2011 HYSTERECTOMY HX 1990 endometriosis, heavy menses KNEE SURGERY HX 2003 TONSILLECTOMY PRIMARY/SECONDARY Tonsillectomy TOTAL KNEE REPLACEMENT Left 02/09/2022 Dr. Tran ALLERGIES Ampicillin and Adhesive MEDICATIONS metFORMIN ER (GLUCOPHAGE XR) 500 mg 24 hr tablet TAKE 2 TABLETS BY MOUTH DAILY WITH BREAKFAST. omeprazole (PRILOSEC) 40 mg capsule Take 1 capsule by mouth once daily. cetirizine (ZYRTEC) 10 mg tablet Take 10 mg by mouth once daily as needed. Cholecalciferol, Vitamin D3, 2,000 unit cap Take 2 capsules by mouth once daily. CALCIUM ORAL Take 1,200 mg by mouth once daily. cyanocobalamin (VITAMIN B-12) 500 mcg tablet Take 1 tablet by mouth once daily. MULTIVITAMIN (MULTIPLE VITAMIN ESSENTIAL ORAL) Take 1 capsule by mouth once daily. FAMILY HISTORY Problem Relation Age of Onset Cancer Paternal Uncle LUNG Cancer Paternal Uncle BREAST Cancer Paternal Uncle BREAST Heart Father Colon Cancer Maternal Aunt Breast Cancer Maternal Aunt Social History Tobacco Use Smoking status: Never Smokeless tobacco: Never Vaping Use Vaping Use: Never used Substance Use Topics Alcohol use: No Drug use: No Review of Systems Constitutional: Negative for activity change, appetite change and chills. Eyes: Negative for pain, discharge and redness. Respiratory: Negative for apnea, choking, chest tightness and shortness of breath. Cardiovascular: Negative for chest pain. Gastrointestinal: Negative for abdominal pain, diarrhea and nausea. Musculoskeletal: Negative for arthralgias, back pain and gait problem. Finger injury Skin: Negative for color change, pallor, rash and wound. Allergic/Immunologic: Negative for environmental allergies, food allergies and immunocompromised state. Neurological: Negative for dizziness, facial asymmetry and headaches. Hematological: Negative for adenopathy. Does not bruise/bleed easily. Psychiatric/Behavioral: Negative for agitation and behavioral problems. Objective Pulse 62 Temp 36.1 ?C (97 ?F) Resp 16 Wt 77.6 kg (171 lb) SpO2 (!) 9% BMI 30.29 kg/m? Physical Exam Vitals and nursing note reviewed. Constitutional: General: She is not in acute distress. Appearance: Normal appearance. She is normal weight. She is not ill-appearing, toxic-appearing or diaphoretic. HENT: Head: Normocephalic and atraumatic. Right Ear: Ear canal and external ear normal. Left Ear: Ear canal and external ear normal. Nose: Nose normal. No congestion or rhinorrhea. Mouth/Throat: Mouth: Mucous membranes are moist. Pharynx: No oropharyngeal exudate or posterior oropharyngeal erythema. Eyes: General: Right eye: No discharge. Left eye: No discharge. Extraocular Movements: Extraocular movements intact. Conjunctiva/sclera: Conjunctivae normal. Pupils: Pupils are equal, round, and reactive to light. Cardiovascular: Rate and Rhythm: Normal rate and regular rhythm. Pulses: Normal pulses. Heart sounds: Normal heart sounds. No murmur heard. No friction rub. Pulmonary: Effort: Pulmonary effort is normal. No respiratory distress. Breath sounds: Normal breath sounds. No stridor. No wheezing, rhonchi or rales. Chest: Chest wall: No tenderness. Abdominal: General: Abdomen is flat. There is no distension. Palpatio (more content not included)... [facility] 01-21-2023 Procedure note Procedure(s): SUTURE REMOVAL No problems identified with surgical incision. X 2 sutures removed without difficulty. Well-approximated. No signs and symptoms of infection. Reviewed wound care with patient with good understanding. Aware to phone office with any questions or concerns. documented in this encounter [facility] 01-21-2023 History of Presen t illness Narrative This note was created using NoteWriter. Subjective Mariluz Mandujano is a 72 year old female. 72 year old female with PMH hyperlipidemia, GERD, DM and arthritis presents for suture removal Had sutures placed 01/12/23 here in the express care The below is from the exam Presents with a chief complaint of left ring finger laceration. She was using a knife to cut a foam mattress Topper when it slipped and cut the tip of her finger. No numbness or tingling. It was still bleeding so she came in for evaluation. Last tetanus vaccine over 5 years ago. Left finger X 2 sutures placed Patient endorses things have been good Denies increase pain, redness or drainage Denies fever or chills The history is provided by the patient. No full time staff interpreter was used. Suture Removal This is a new problem. The current episode started more than 1 week ago. The problem occurs constantly. The problem has been gradually improving. Pertinent negatives include no chest pain, no abdominal pain, no headaches and no shortness of breath. Nothing aggravates the symptoms. Nothing relieves the symptoms. She has tried nothing for the symptoms. The treatment provided no relief. PAST MEDICAL HISTORY Diagnosis Date Arthritis of hip 01/12/2018 2018: R hip Breast cancer (HCC) R breast, stage II s/p radiation treatment Lumbago PAST SURGICAL HISTORY Procedure Laterality Date ARTHRP ACETBLR/PROX FEM PROSTC AGRFT/ALGRFT Right 05/2019 BREAST LUMPECTOMY HX 10/2011 HYSTERECTOMY HX 1990 endometriosis, heavy menses KNEE SURGERY HX 2003 TONSILLECTOMY PRIMARY/SECONDARY <AGE 11 Tonsillectomy TOTAL KNEE REPLACEMENT Left 02/09/2022 Dr. Tran ALLERGIES Ampicillin and Adhesive MEDICATIONS metFORMIN ER (GLUCOPHAGE XR) 500 mg 24 hr tablet TAKE 2 TABLETS BY MOUTH DAILY WITH BREAKFAST. omeprazole (PRILOSEC) 40 mg capsule Take 1 capsule by mouth once daily. cetirizine (ZYRTEC) 10 mg tablet Take 10 mg by mouth once daily as needed. Cholecalciferol, Vitamin D3, 2,000 unit cap Take 2 capsules by mouth once daily. CALCIUM ORAL Take 1,200 mg by mouth once daily. cyanocobalamin (VITAMIN B-12) 500 mcg tablet Take 1 tablet by mouth once daily. MULTIVITAMIN (MULTIPLE VITAMIN ESSENTIAL ORAL) Take 1 capsule by mouth once daily. FAMILY HISTORY Problem Relation Age of Onset Cancer Paternal Uncle LUNG Cancer Paternal Uncle BREAST Cancer Paternal Uncle BREAST Heart Father Colon Cancer Maternal Aunt Breast Cancer Maternal Aunt Social History Tobacco Use Smoking status: Never Smokeless tobacco: Never Vaping Use Vaping Use: Never used Substance Use Topics Alcohol use: No Drug use: No Review of Systems Constitutional: Negative for activity change, appetite change and chills. Eyes: Negative for pain, discharge and redness. Respiratory: Negative for apnea, choking, chest tightness and shortness of breath. Cardiovascular: Negative for chest pain. Gastrointestinal: Negative for abdominal pain, diarrhea and nausea. Musculoskeletal: Negative for arthralgias, back pain and gait problem. Finger injury Skin: Negative for color change, pallor, rash and wound. Allergic/Immunologic: Negative for environmental allergies, food allergies and immunocompromised state. Neurological: Negative for dizziness, facial asymmetry and headaches. Hematological: Negative for adenopathy. Does not bruise/bleed easily. Psychiatric/Behavioral: Negative for agitation and behavioral problems. Objective Pulse 62 Temp 36.1 C (97 F) Resp 16 Wt 77.6 kg (171 lb) SpO2 (!) 9% BMI 30.29 kg/m Physical Exam Vitals and nursing note reviewed. Constitutional: General: She is not in acute distress. Appearance: Normal appearance. She is normal weight. She is not ill-appearing, toxic-appearing or diaphoretic. HENT: Head: Normocephalic and atraumatic. Right Ear: Ear canal and external ear normal. Left Ear: Ear canal and external ear normal. Nose: Nose normal. No congestion or rhinorrhea. Mouth/Throat: Mouth: Mucous membranes are moist. Pharynx: No oropharyngeal exudate or posterior oropharyngeal erythema. Eyes: General: Right eye: No discharge. Left eye: No discharge. Extraocular Movements: Extraocular movements intact. Conjunctiva/sclera: Conjunctivae normal. Pupils: Pupils are equal, round, and reactive to light. Cardiovascular: Rate and Rhythm: Normal rate and regular rhythm. Pulses: Normal pulses. Heart sounds: Normal heart sounds. No murmur heard. No friction rub. Pulmonary: Effort: Pulmonary effort is normal. No respiratory distress. Breath sounds: Normal breath sounds. No stridor. No wheezing, rhonchi or rales. Chest: Chest wall: No tenderness. Abdominal: General: Abdomen is flat. There is no distension. Palpations: Abdomen is soft. There is no mass. Tenderness: There is no abdominal tenderness. There is no right CVA tenderness, left CVA tenderness, guarding or rebound. Hernia: No hernia is present. Musculoskeletal: General: Tenderness and signs of injury present. No swelling or deformity. Normal range of motion. Cervical back: Normal range of motion and neck supple. No rigidity. Right lower leg: No edema. Left lower leg: No edema. Comments: Left distal phalanx with x 2 interrupted sutures. No drainage No erythema No crepitus +flexion + extension Brisk cap refill. Lymphadenopathy: Cervical: No cervical adenopathy. Skin: General: Skin is warm and dry. Capillary Refill: Capillary refill takes less than 2 seconds. Coloration: Skin is not jaundiced or pale. Findings: No bruising, erythema, lesion or rash. Neurological: General: No focal deficit present. Mental Status: She is alert and oriented to person, place, and time. Cranial Nerves: No cranial nerve deficit. Sensory: No sensory deficit. Motor: No weakness. Coordination: Coordination normal. Gait: Gait normal. Psychiatric: Mood and Affect: Mood normal. Behavior: Behavior normal. Thought Content: Thought content normal. Judgment: Judgment normal. Assessment and Plan ASSESSMENT/PLAN: 1. Encounter for removal of sutures - ICD9: V58.32, ICD10: Z48.02 (primary diagnosis) Placed here 01/12/23 X 2 sutures Removed without incident. 2. Visit for wound check - ICD9: V58.89, ICD10: Z51.89 No signs of infection Sutures removed without issue ATB ointment and DSD applied Discussed wound care Franca Newman APRN.BILLIE documented in this encounter [facility] 01-12-2023 Note HNO ID: [id number] Author: Cassandra Sharma PA-C Service: ? Author Type: Physician Overnight Stocker Type: Progress Notes Filed: 01/12/2023 2:11 PM Note Text: This note was created using [employer]. Subjective Mariluz Mandujano is a 72 year old female. HPI Presents with a chief complaint of left ring finger laceration. She was using a knife to cut a foam mattress Topper when it slipped and cut the tip of her finger. No numbness or tingling. It was still bleeding so she came in for evaluation. Last tetanus vaccine over 5 years ago. Review of Systems All other systems reviewed and are negative. PAST MEDICAL HISTORY Diagnosis Date Arthritis of hip 01/12/2018 2018: R hip Breast cancer (HCC) R breast, stage II s/p radiation treatment Lumbago Current Outpatient Medications Medication Sig Dispense Refill metFORMIN ER (GLUCOPHAGE XR) 500 mg 24 hr tablet TAKE 2 TABLETS BY MOUTH DAILY WITH BREAKFAST. 180 tablet 1 omeprazole (PRILOSEC) 40 mg capsule Take 1 capsule by mouth once daily. 30 capsule 11 cetirizine (ZYRTEC) 10 mg tablet Take 10 mg by mouth once daily as needed. Cholecalciferol, Vitamin D3, 2,000 unit cap Take 2 capsules by mouth once daily. 30 capsule 12 CALCIUM ORAL Take 1,200 mg by mouth once daily. cyanocobalamin (VITAMIN B-12) 500 mcg tablet Take 1 tablet by mouth once daily. MULTIVITAMIN (MULTIPLE VITAMIN ESSENTIAL ORAL) Take 1 capsule by mouth once daily. No current facility-administered medications for this visit. PAST SURGICAL HISTORY Procedure Laterality Date ARTHRP ACETBLR/PROX FEM PROSTC AGRFT/ALGRFT Right 05/2019 BREAST LUMPECTOMY HX 10/2011 HYSTERECTOMY HX 1990 endometriosis, heavy menses KNEE SURGERY HX 2003 TONSILLECTOMY PRIMARY/SECONDARY Tonsillectomy TOTAL KNEE REPLACEMENT Left 02/09/2022 Dr. Tran FAMILY HISTORY Problem Relation Age of Onset Cancer Paternal Uncle LUNG Cancer Paternal Uncle BREAST Cancer Paternal Uncle BREAST Heart Father Colon Cancer Maternal Aunt Breast Cancer Maternal Aunt Social History Tobacco Use Smoking status: Never Smokeless tobacco: Never Vaping Use Vaping Use: Never used Substance Use Topics Alcohol use: No Drug use: No Objective BP 132/80 Pulse 72 Temp 36.6 ?C (97.8 ?F) Resp 16 Wt 78 kg (172 lb) SpO2 97% BMI 30.47 kg/m? Physical Exam Vitals reviewed. Constitutional: Appearance: Normal appearance. HENT: Head: Normocephalic and atraumatic. Musculoskeletal: Comments: Patient has a 1 cm laceration to the distal phalanx of the left fourth digit. No nail involvement. Some mild bleeding. No tendon involvement or foreign body. Normal range of motion. Skin: General: Skin is warm and dry. Neurological: General: No focal deficit present. Mental Status: She is alert. Procedure: laceration repair Verbal consent given after discussing risk and benefit 1cc 2% lidocaine injected locally for anesthetic. Wound copiously irrigated with NS. Wound wdges scrubbed with Hibiclens. In a bloodless field. Wound explored and no FB or tendon involvement. 2 simple interrupted sutures using 5-0 prolene used to repair the wound. Covered with nonstick dressing and coban. Patient tolerated procedure well, no immediate complications. Assessment and Plan ASSESSMENT/PLAN: 1. Laceration of left ring finger without foreign body without damage to nail, initial encounter - ICD9: 883.0, ICD10: S61.215A Laceration repaired here with 2 simple interrupted sutures. Discussed wound care. Discussed having sutures removed in 7 to 10 days. Patient agreeable with plan. Cassandra Sharma PA-C [facility] 01-12-2023 History of Presen t illness Narrative This note was created using [employer]. Subjective Mariluz Mandujano is a 72 year old female. HPI Presents with a chief complaint of left ring finger laceration. She was using a knife to cut a foam mattress Topper when it slipped and cut the tip of her finger. No numbness or tingling. It was still bleeding so she came in for evaluation. Last tetanus vaccine over 5 years ago. Review of Systems All other systems reviewed and are negative. PAST MEDICAL HISTORY Diagnosis Date Arthritis of hip 01/12/2018 2018: R hip Breast cancer (HCC) R breast, stage II s/p radiation treatment Lumbago Current Outpatient Medications Medication Sig Dispense Refill metFORMIN ER (GLUCOPHAGE XR) 500 mg 24 hr tablet TAKE 2 TABLETS BY MOUTH DAILY WITH BREAKFAST. 180 tablet 1 omeprazole (PRILOSEC) 40 mg capsule Take 1 capsule by mouth once daily. 30 capsule 11 cetirizine (ZYRTEC) 10 mg tablet Take 10 mg by mouth once daily as needed. Cholecalciferol, Vitamin D3, 2,000 unit cap Take 2 capsules by mouth once daily. 30 capsule 12 CALCIUM ORAL Take 1,200 mg by mouth once daily. cyanocobalamin (VITAMIN B-12) 500 mcg tablet Take 1 tablet by mouth once daily. MULTIVITAMIN (MULTIPLE VITAMIN ESSENTIAL ORAL) Take 1 capsule by mouth once daily. No current facility-administered medications for this visit. PAST SURGICAL HISTORY Procedure Laterality Date ARTHRP ACETBLR/PROX FEM PROSTC AGRFT/ALGRFT Right 05/2019 BREAST LUMPECTOMY HX 10/2011 HYSTERECTOMY HX 1990 endometriosis, heavy menses KNEE SURGERY HX 2003 TONSILLECTOMY PRIMARY/SECONDARY <AGE 11 Tonsillectomy TOTAL KNEE REPLACEMENT Left 02/09/2022 Dr. Tran FAMILY HISTORY Problem Relation Age of Onset Cancer Paternal Uncle LUNG Cancer Paternal Uncle BREAST Cancer Paternal Uncle BREAST Heart Father Colon Cancer Maternal Aunt Breast Cancer Maternal Aunt Social History Tobacco Use Smoking status: Never Smokeless tobacco: Never Vaping Use Vaping Use: Never used Substance Use Topics Alcohol use: No Drug use: No Objective BP 132/80 Pulse 72 Temp 36.6 C (97.8 F) Resp 16 Wt 78 kg (172 lb) SpO2 97% BMI 30.47 kg/m Physical Exam Vitals reviewed. Constitutional: Appearance: Normal appearance. HENT: Head: Normocephalic and atraumatic. Musculoskeletal: Comments: Patient has a 1 cm laceration to the distal phalanx of the left fourth digit. No nail involvement. Some mild bleeding. No tendon involvement or foreign body. Normal range of motion. Skin: General: Skin is warm and dry. Neurological: General: No focal deficit present. Mental Status: She is alert. Procedure: laceration repair Verbal consent given after discussing risk and benefit 1cc 2% lidocaine injected locally for anesthetic. Wound copiously irrigated with NS. Wound wdges scrubbed with Hibiclens. In a bloodless field. Wound explored and no FB or tendon involvement. 2 simple interrupted sutures using 5-0 prolene used to repair the wound. Covered with nonstick dressing and coban. Patient tolerated procedure well, no immediate complications. Assessment and Plan ASSESSMENT/PLAN: 1. Laceration of left ring finger without foreign body without damage to nail, initial encounter - ICD9: 883.0, ICD10: S61.215A Laceration repaired here with 2 simple interrupted sutures. Discussed wound care. Discussed having sutures removed in 7 to 10 days. Patient agreeable with plan. Cassandra Sharma PA-C documented in this encounter [facility] 01-12-2023 Instructions Cassandra Sharma PA-C - 01/12/2023 2:02 PM EDT Keep clean and dry for 24 hours. wash with soap and water after this. Keep covered. No soaking the finger in water until sutures removed. Suture removal in 7-10 days. documented in this encounter [facility] 09-05-2022 History of Presen t illness Narrative Chief Complaint Patient presents with: 6 Month Exam HPI Mariluz Mandujano is a 72 year old female who presents here today for 6 month follow up. No bowel, Gi, or urinary issues. Treated last month for UTI. GERD: Sx controlled on Prilosec 40 mg as needed, changed coffee and hasn't needed for 6 months now. DM: Taking Metformin xr 500 mg 2 pills once daily. Denies any hypoglycemic episodes or neuropathy sx. Only checking BS occ, stated most recent reading was 118 a few days prior to getting blood work done. Lipid: she has been working on diet and exercising a few days a week at the [facility]. Has lost some weight. Not taking any cholesterol meds, is hesitant to start tx; discussed risk of CAD. No chest pains, dizziness, or SOB. Had left knee replacement done in January by Dr. Tran. She is doing well with that. She will be getting the right knee replaced at some point but at this time it isn't bothering her. She joined [facility] for ages 50 and over. Going and exercising there 3 days a week. Past medical history, appointments, medications, allergies reviewed. Previous Medical History PAST MEDICAL HISTORY Diagnosis Date Arthritis of hip 01/12/2018 2018: R hip Breast cancer (HCC) R breast, stage II s/p radiation treatment Lumbago Previous Surgical History PAST SURGICAL HISTORY Procedure Laterality Date ARTHRP ACETBLR/PROX FEM PROSTC AGRFT/ALGRFT Right 05/2019 BREAST LUMPECTOMY HX 10/2011 HYSTERECTOMY HX 1990 endometriosis, heavy menses KNEE SURGERY HX 2003 TONSILLECTOMY PRIMARY/SECONDARY <AGE 11 Tonsillectomy TOTAL KNEE REPLACEMENT Left 02/09/2022 Dr. Tran Family History FAMILY HISTORY Problem Relation Age of Onset Cancer Paternal Uncle LUNG Cancer Paternal Uncle BREAST Cancer Paternal Uncle BREAST Heart Father Colon Cancer Maternal Aunt Breast Cancer Maternal Aunt Patient Allergies ALLERGIES Allergen Reactions Ampicillin Rash Adhesive Rash Current Medications Current Outpatient Medications on File Prior to Visit Medication Sig metFORMIN ER (GLUCOPHAGE XR) 500 mg 24 hr tablet TAKE 2 TABLETS BY MOUTH DAILY WITH BREAKFAST. omeprazole (PRILOSEC) 40 mg capsule Take 1 capsule by mouth once daily. cetirizine (ZYRTEC) 10 mg tablet Take 10 mg by mouth once daily as needed. Cholecalciferol, Vitamin D3, 2,000 unit cap Take 2 capsules by mouth once daily. CALCIUM ORAL Take 1,200 mg by mouth once daily. cyanocobalamin (VITAMIN B-12) 500 mcg tablet Take 1 tablet by mouth once daily. MULTIVITAMIN (MULTIPLE VITAMIN ESSENTIAL ORAL) Take 1 capsule by mouth once daily. No current facility-administered medications on file prior to visit. Social History Social History Tobacco Use Smoking status: Never Smokeless tobacco: Never Vaping Use Vaping Use: Never used Substance Use Topics Alcohol use: No Drug use: No EXAM: BP 122/70 Pulse 70 Resp 16 Wt 76.4 kg (168 lb 6.4 oz) BMI 29.83 kg/m General Appearance: Well appearing, alert, in no acute distress, well-hydrated, well nourished.. Lungs: Lungs clear to auscultation. No wheezing, rhonchi, rales.. Heart: RRR without murmur, gallop, or rubs. No ectopy. Health Maintenance List DIABETIC FOOT EXAM Never done DEPRESSION ASSESSMENT Never done HBA1C due on 07/05/2022 URINE ALBUMIN:CREATININE RATIO due on 11/29/2022 LDL CHOLESTEROL due on 11/29/2022 MAMMOGRAM due on 03/08/2023 ANNUAL PCP TEAM CHRONIC DISEASE VISIT due on 03/17/2023 DILATED RETINAL EXAM due on 07/05/2023 COLORECTAL CANCER SCREENING due on 07/18/2026 DTAP,TDAP,TD(2 - Td or Tdap) due on 09/20/2027 BONE DENSITY Completed INFLUENZA Completed ADVANCE DIRECTIVE DISCUSSION Completed HEPATITIS C SCREENING Completed SHINGRIX VACCINE Completed COVID-19 VACCINE Completed PNEUMOCOCCAL: 65+ Completed Data reviewed Appointment on 09/01/2022 Component Date Value Protein, Total 09/01/2022 6.8 Albumin 09/01/2022 4.6 Calcium, Total 09/01/2022 9.4 Bilirubin, Total 09/01/2022 0.5 Alkaline Phosphatase 09/01/2022 82 AST 09/01/2022 19 ALT 09/01/2022 27 Glucose 09/01/2022 135 (A) BUN 09/01/2022 20 Creatinine 09/01/2022 0.66 Sodium 09/01/2022 138 Potassium 09/01/2022 4.2 Chloride 09/01/2022 104 CO2 09/01/2022 25 Anion Gap 09/01/2022 9 Estimated Glomerular Elmer* 09/01/2022 93 Hemoglobin A1C 09/01/2022 6.0 (A) Estimated Average Glucose 09/01/2022 126 Cholesterol, Total 09/01/2022 206 (A) Triglyceride 09/01/2022 139 HDL Cholesterol 09/01/2022 44 Non HDL Cholesterol 09/01/2022 162 (A) Fasting Time 09/01/2022 12 VLDL Cholesterol 09/01/2022 28 TC:HDL Ratio 09/01/2022 4.68 LDL Cholesterol 09/01/2022 134 (A) LDL:HDL Ratio 09/01/2022 3.05 (A) Office Visit on 07/27/2022 Component Date Value GLUCOSE UA (POCT) 07/27/2022 Negative BILIRUBIN UA (POCT) 07/27/2022 Negative KETONE UA (POCT) 07/27/2022 Negative SPECIFIC GRAVITY UA (POC* 07/27/2022 1.025 HEMOGLOBIN/BLOOD UA (PO* 07/27/2022 Small (A) PH UA (POCT) 07/27/2022 5.5 PROTEIN UA (POCT) 07/27/2022 Negative UROBILINOGEN UA (POCT) 07/27/2022 0.2 NITRITE UA (POCT) 07/27/2022 Negative LEUKOCYTES UA (POCT) 07/27/2022 Negative COLOR UA (POCT) 07/27/2022 Yellow CLARITY UA (POCT) 07/27/2022 Clear Culture, Urine 07/27/2022 Mixed microbiota, including predominantly: Culture, Urine 07/27/2022 50,000-<100,000 CFU/ml Streptococcus anginosus (A) ASSESSMENT/PLAN: 1. Type 2 diabetes mellitus without complication, without long-term current use of insulin (HCC) - ICD9: 250.00, ICD10: E11.9 (primary diagnosis) Controlled. - Continue current medications 2. Hyperlipidemia with target LDL less than 100 - ICD9: 272.4, ICD10: E78.5 - suboptimal control - Encouraged following a low fat, low cholesterol diet. - Discussed the benefits of regular aerobic exercise and weight loss. - Tx discussed but declined, would like to continue working on lifestyle 3. GERD without esophagitis - ICD9: 530.81, ICD10: K21.9 Controlled Continue current medications. 4. Personal history of breast cancer - ICD9: V10.3, ICD10: Z85.3 Follow up in 6 months with fasting labs and urine test prior. I agree with the Chief Complaint, ROS, and Past Histories independently gathered by the clinical business support administrator and the remaining scribed note accurately describes my personal service to the patient. Medical Decision Making: Problems: Moderate: 2+ stable chronic illnesses Data: Unique test result(s) reviewed: 2 Unique test(s) ordered: 2 Risk: Moderate: Drug management Medical Decision Making Level: 4 - Moderate Wilfred Rodriguez MD The documentation for this note was completed by Delores Albarado Ma acting as scribe for Wilfred Rodriguez MD. September 05, 2022 1:45 PM. Delores Albarado Ma documented in this encounter [facility] 08-22-2022 Miscellaneous Notes Immunization updated. Delores Albarado Ma documented in this encounter [facility] 07-29-2022 Miscellaneous Notes Pt stated she is out of town and not having any issues. Awaiting response back from pt on time and day for appt to discuss recent results for [facility]. Delores Albarado Ma documented in this encounter [facility] 07-29-2022 Miscellaneous Notes Patient notified of results and provider's instructions. Patient verbalizes understanding. Patient states that she currently does not have any urinary symptoms. Patient states that she is out of town for 3 weeks. If she has urinary symptoms she will follow up with PCP. Tabitha Doherty RN Mychart message sent to pt, asking them to call back for results. Delores Albarado MA Reached out to discuss results with patient. Growth reveals mixed microbiota including predominant streptococcus anginosus. She did not answer. Voicemail message left. Requesting return call back. Check on symptoms. Would like to have patient follow up with PCP to retest urine. documented in this encounter [facility] 05-24-2022 History of Presen t illness Narrative Mariluz is a 72 year old who presents for an annual gynecologic exam without complaints. Postmenopausal: yes HRT use: No. Last Pap: s/p hyst, paps normal HPV: N/A History of abnormal pap: No OB History T0 L0 SAB0 IAB0 Ectopic0 Multiple0 Live Births0 [employer] History LMP: Hysterectomy Age at Menarche: Age at First : Age at Menopause: [employer] History Comments: Sexual Activity: Not Asked; No partner data on record; hysterectomy Contraception: Surgical PAST MEDICAL HISTORY Diagnosis Date Arthritis of hip 01/12/2018 2018: R hip Breast cancer (HCC) R breast, stage II s/p radiation treatment Lumbago PAST SURGICAL HISTORY Procedure Laterality Date ARTHRP ACETBLR/PROX FEM PROSTC AGRFT/ALGRFT Right 05/2019 BREAST LUMPECTOMY HX 10/2011 HYSTERECTOMY HX 1990 endometriosis, heavy menses KNEE SURGERY HX 2003 TONSILLECTOMY PRIMARY/SECONDARY <AGE 11 Tonsillectomy TOTAL KNEE REPLACEMENT Left 02/09/2022 Dr. Tran FAMILY HISTORY Problem Relation Age of Onset Cancer Paternal Uncle LUNG Cancer Paternal Uncle BREAST Cancer Paternal Uncle BREAST Heart Father Colon Cancer Maternal Aunt Breast Cancer Maternal Aunt SOCIAL HISTORY Social History Tobacco Use Smoking status: Never Smokeless tobacco: Never Vaping Use Vaping Use: Never used Substance Use Topics Alcohol use: No Drug use: No REVIEW OF SYSTEMS Abdomen: No abdominal pain, nausea, vomiting, diarrhea, or constipation. No bloating, early satiety, indigestion, or increased flatulence. Bladder: No dysuria, gross hematuria, urinary frequency, urinary urgency, or incontinence Breast: No breast lumps, nipple d/c, overlying skin changes, redness or skin retraction Allergies and current medication updated:Yes EXAM: BP 124/68 Wt 170 lb (77.1kg) GENERAL: pleasant, female in no apparent distress HEENT: Normocephalic, atraumatic, mucus membranes moist, and no lesions NECK: Supple, full range of motion, no adenopathy, and thyroid normal DERMATOLOGY: Normal, without lesions, non-icteric, and non-hirsute BREAST: soft, non-tender, symmetric, no dominant mass, normal nipple-areolar complex, no lymphadenopathy, no nipple discharge, and previous scar tissue noted CHEST: Normal inspiratory effort ABDOMEN: soft, non-tender, and no masses PELVIC: deferred at patient request BIMANUAL: deferred ASSESSMENT/PLAN: 1) Health maintenance: Pap/HPV screening no longer needed Mammogram ordered 2) Follow up one year or sooner as needed Sadie Knott MD documented in this encounter [facility] 04-20-2022 Miscellaneous Notes Please review pt message and advise. Gogo Boland Ma documented in this encounter [facility] 03-17-2022 History of Presen t illness Narrative Chief Complaint No chief complaint on file. HPI:This Team Access Model visit is a virtual encounter. It required patient-provider interaction for the medical decision making as documented below. Patient was offered a virtual/telemedicine appointment in lieu of an office visit due to recommendations to reduce patient exposure to COVID-19. Patient is aware of limitations of performing the visit without a face to face visit in the office setting and agrees. Pt completing a virtual visit today due to a positive Covid test at home. Pt wrote into the office stating that she had a positive home covid test. Symptoms started on Monday afternoon, with a lot of drainage in her throat and loss of her voice. On Monday she continued to not feel well and took her temperature in the evening with her thermometer showing 100.2. Pt notes that she's had all the covid vaccines and the first booster, she is wondering what she should do. Pt notes that she does feel better today then she has been, tiredness has improved. Feels she just has her normal allergies. Minimal cough. No SOB. Today temp has been 99.9. Rooming intake - Negative Mon + test today + test. Covid intake - [facility], [facility] wrote [facility] the [facility] that they tested positive. Past medical history, appointments, medications, allergies reviewed. Previous Medical History PAST MEDICAL HISTORY Diagnosis Date Arthritis of hip 01/12/2018 2018: R hip Breast cancer (HCC) R breast, stage II s/p radiation treatment Lumbago Previous Surgical History PAST SURGICAL HISTORY Procedure Laterality Date ARTHRP ACETBLR/PROX FEM PROSTC AGRFT/ALGRFT Right 05/2019 BREAST LUMPECTOMY HX 10/2011 HYSTERECTOMY HX 1990 endometriosis, heavy menses KNEE SURGERY HX 2003 TONSILLECTOMY PRIMARY/SECONDARY <AGE 11 Tonsillectomy Family History FAMILY HISTORY Problem Relation Age of Onset Cancer Paternal Uncle LUNG Cancer Paternal Uncle BREAST Cancer Paternal Uncle BREAST Heart Father Colon Cancer Maternal Aunt Breast Cancer Maternal Aunt Patient Allergies ALLERGIES Allergen Reactions Ampicillin Rash Adhesive Rash Current Medications Current Outpatient Medications on File Prior to Visit Medication Sig metFORMIN ER (GLUCOPHAGE XR) 500 mg 24 hr tablet Take 2 tablets by mouth daily with breakfast. omeprazole (PRILOSEC) 40 mg capsule Take 1 capsule by mouth once daily. cetirizine (ZYRTEC) 10 mg tablet Take 10 mg by mouth once daily as needed. Cholecalciferol, Vitamin D3, 2,000 unit cap Take 2 capsules by mouth once daily. CALCIUM ORAL Take 1,200 mg by mouth once daily. cyanocobalamin (VITAMIN B-12) 500 mcg tab Take 1 tablet by mouth once daily. MULTIVITAMIN (MULTIPLE VITAMIN ESSENTIAL ORAL) Take 1 capsule by mouth once daily. No current facility-administered medications on file prior to visit. Social History Social History Tobacco Use Smoking status: Never Smoker Smokeless tobacco: Never Used Vaping Use Vaping Use: Never used Substance Use Topics Alcohol use: No Drug use: No EXAM: There were no vitals taken for this visit. General Appearance: Well appearing, alert, in no acute distress, well-hydrated, well nourished.. Health Maintenance List DIABETIC FOOT EXAM Never done COVID-19 VACCINE(4 - Booster for Pfizer series) due on 11/19/2021 DEPRESSION SCREENING due on 06/01/2022 DILATED RETINAL EXAM due on 06/24/2022 HBA1C due on 07/05/2022 URINE ALBUMIN:CREATININE RATIO due on 11/29/2022 LDL CHOLESTEROL due on 11/29/2022 ANNUAL PCP TEAM CHRONIC DISEASE VISIT due on 01/07/2023 MAMMOGRAM due on 03/08/2023 COLORECTAL CANCER SCREENING due on 07/18/2026 DTAP,TDAP,TD(2 - Td or Tdap) due on 09/20/2027 BONE DENSITY Completed INFLUENZA Completed ADVANCE DIRECTIVE DISCUSSION Completed HEPATITIS C SCREENING Completed SHINGRIX VACCINE Completed PNEUMOCOCCAL: 65+ Completed Data reviewed None ASSESSMENT/PLAN: 1. COVID - ICD9: 079.89, ICD10: U07.1 Recommend symptomatic treatment. Discussed oral meds; as she is already improving with her symptoms I have recommended symptomatic treatment. Call if symptoms worsening. Discussed isolation of 5 days. Wilfred Rodriguez MD documented in this encounter [facility] 03-08-2022 Miscellaneous Notes Patient notified. Susanne Houston LPN Please inform pt. that her mammogram looks good. She plans to have SUPERVISOR FURNACE PROCESS order her mammogram going forward. Follow up here prn (as per discussion at last OV). Thank you. Jillian Gaspar APRN.CATIA DESIGNER documented in this encounter [facility] 03-08-2022 Miscellaneous Notes March 08, 2022 PID: [id number] Mariluz Mandujano [address] [place] [id number] Dear Ms. Mandujano, We are pleased to inform you that the results of your recent breast imaging exam on 03/08/2022 are normal. Early detection of cancer is very important. We also understand recommendations regarding breast cancer screening are controversial. Please discuss with your primary care provider which strategy is best for you and whether a mammogram is right for you. Your imaging studies and report will be kept on file at [facility] as part of your permanent medical record and are available for your continuing care. Thank you for allowing us to help in meeting your health care needs. Sincerely, Dr. Núñez Interpreting Radiologist [facility] (Normal over 40) documented in this encounter [facility] 03-08-2022 History of Presen t illness Narrative Radiology Service Progress Note PATIENT NAME: Mariluz Mandujano DATE OF SERVICE: March 08, 2022 TIME: 11:29 AM PATIENT IDENTITY VERIFICATION COMPLETED USING TWO (2) IDENTIFIERS: Name and Date of confirmed by patient verbally. FALL SCREENING: Has the patient had 2 falls in the last year or 1 fall with injury or currently using an Ambulatory Assistive Device (Walker, Cane, Wheelchair, Crutches, etc.)? No PATIENT GENDER DATA: Female. status: : No status: NO. PATIENT RELEVANT IMPLANT DATA REVIEWED: Not Applicable RADIOLOGY DEPARTMENT: Mammography PERIPHERAL IV DATA: Not applicable SIGNED BY: Jh Sims March 08, 2022 11:29 AM documented in this encounter [facility] 01-21-2022 Miscellaneous Notes See pt message. She should have refills but the pharmacy is not giving her the refill. Can we resubmit for the dosage she needs. Gogo Boland Ma documented in this encounter [facility] 01-07-2022 History of Presen t illness Narrative Chief Complaint Patient presents with: Recheck Pre-Op Exam HPI: Mariluz Mandujano is a 71 year old female who presents here today for a 1 month follow up/pre-op exam. Pt here today for a 1 month follow up and pre-op exam for left knee replacement by Dr. Tran. DM - Due to worsening control, A1c elevated to 8.2, pt was started on Metformin XR 500 mg bid, as tolerated. Pt was instructed to watch diet and exercise as tolerated. She has done well on metformin as prescribed. Watching diet. Denies chest pain, SOB, dizziness. Previous Medical History PAST MEDICAL HISTORY Diagnosis Date Arthritis of hip 01/12/2018 2018: R hip Breast cancer (HCC) R breast, stage II s/p radiation treatment Lumbago Previous Surgical History PAST SURGICAL HISTORY Procedure Laterality Date ARTHRP ACETBLR/PROX FEM PROSTC AGRFT/ALGRFT Right 05/2019 BREAST LUMPECTOMY HX 10/2011 HYSTERECTOMY HX 1990 endometriosis, heavy menses KNEE SURGERY HX 2003 TONSILLECTOMY PRIMARY/SECONDARY <AGE 11 Tonsillectomy Family History FAMILY HISTORY Problem Relation Age of Onset Cancer Paternal Uncle LUNG Cancer Paternal Uncle BREAST Cancer Paternal Uncle BREAST Heart Father Colon Cancer Maternal Aunt Breast Cancer Maternal Aunt Patient Allergies ALLERGIES Allergen Reactions Ampicillin Rash Adhesive Rash Current Medications Current Outpatient Medications on File Prior to Visit Medication Sig metFORMIN ER (GLUCOPHAGE XR) 500 mg 24 hr tablet Take 1 tablet by mouth in the morning with breakfast for one week. If tolerating, increase to 2 tablet by mouth with breakfast. omeprazole (PRILOSEC) 40 mg capsule Take 1 capsule by mouth once daily. cetirizine (ZYRTEC) 10 mg tablet Take 10 mg by mouth once daily as needed. Cholecalciferol, Vitamin D3, 2,000 unit cap Take 2 capsules by mouth once daily. CALCIUM ORAL Take 1,200 mg by mouth once daily. cyanocobalamin (VITAMIN B-12) 500 mcg tab Take 1 tablet by mouth once daily. MULTIVITAMIN (MULTIPLE VITAMIN ESSENTIAL ORAL) Take 1 capsule by mouth once daily. No current facility-administered medications on file prior to visit. Social History Social History Tobacco Use Smoking status: Never Smoker Smokeless tobacco: Never Used Vaping Use Vaping Use: Never used Substance Use Topics Alcohol use: No Drug use: No EXAM: BP 136/74 Pulse 68 Resp 14 Wt 80.7 kg (178 lb) BMI 31.53 kg/m General Appearance: Well appearing, alert, in no acute distress, well-hydrated, well nourished.. Lungs: Lungs clear to auscultation. No wheezing, rhonchi, rales.. Heart: RRR without murmur, gallop, or rubs. No ectopy. Health Maintenance List DIABETIC FOOT EXAM Never done ADVANCE DIRECTIVE DISCUSSION Never done MAMMOGRAM due on 02/25/2022 DEPRESSION SCREENING due on 06/01/2022 DILATED RETINAL EXAM due on 06/24/2022 HBA1C due on 07/05/2022 URINE ALBUMIN:CREATININE RATIO due on 11/29/2022 LDL CHOLESTEROL due on 11/29/2022 ANNUAL PCP TEAM CHRONIC DISEASE VISIT due on 12/02/2022 COLORECTAL CANCER SCREENING due on 07/18/2026 DTAP,TDAP,TD(2 - Td or Tdap) due on 09/20/2027 BONE DENSITY Completed INFLUENZA Completed HEPATITIS C SCREENING Completed PNEUMOVAX AGE 65 AND OVER WITH 5YR LOOKBACK Completed SHINGRIX VACCINE Completed COVID-19 VACCINE Completed MENINGOCOCCAL CONJUGATE Aged Out Data reviewed Appointment on 01/03/2022 Component Date Value Hemoglobin A1C 01/03/2022 7.3 (A) Estimated Average Glucose 01/03/2022 163 Glucose 01/03/2022 138 (A) BUN 01/03/2022 16 Creatinine 01/03/2022 0.67 Sodium 01/03/2022 141 Potassium 01/03/2022 4.0 Chloride 01/03/2022 106 (A) CO2 01/03/2022 25 Anion Gap 01/03/2022 10 Calcium, Total 01/03/2022 8.7 Estimated Glomerular Elmer* 01/03/2022 93 Results Only on 11/29/2021 Component Date Value Creatinine, Ur Random (U* 11/29/2021 33.5 Albumin, Urine Random 11/29/2021 <12.0 Albumin/Creat Ratio 11/29/2021 Hemoglobin A1C 11/29/2021 8.2 (A) Estimated Average Glucose 11/29/2021 189 Protein, Total 11/29/2021 6.2 (A) Albumin 11/29/2021 4.2 Calcium, Total 11/29/2021 9.0 Bilirubin, Total 11/29/2021 0.5 Alkaline Phosphatase 11/29/2021 88 AST 11/29/2021 29 ALT 11/29/2021 44 (A) Glucose 11/29/2021 197 (A) BUN 11/29/2021 17 Creatinine 11/29/2021 0.59 Sodium 11/29/2021 138 Potassium 11/29/2021 4.1 Chloride 11/29/2021 104 CO2 11/29/2021 23 Anion Gap 11/29/2021 11 Estimated Glomerular Elmer* 11/29/2021 96 Cholesterol, Total 11/29/2021 216 (A) Triglyceride 11/29/2021 189 (A) HDL Cholesterol 11/29/2021 37 (A) Non HDL Cholesterol 11/29/2021 179 (A) Fasting Time 11/29/2021 11 VLDL Cholesterol 11/29/2021 38 (A) TC:HDL Ratio 11/29/2021 5.84 (A) LDL Cholesterol 11/29/2021 141 (A) LDL:HDL Ratio 11/29/2021 3.81 (A) ASSESSMENT/PLAN: 1. Type 2 diabetes mellitus without complication, without long-term current use of insulin (HCC) - ICD9: 250.00, ICD10: E11.9 (primary diagnosis) Controlled. - Continue current medications - COMP METABOLIC PANEL - HGB A1C - LIPID PANEL BASIC 2. Chronic pain of left knee - ICD9: 719.46, 338.29, ICD10: M25.562, G89.29 Medically stable for planned surgery; form faxed to [facility] Follow up in 6 months with terri prior Medical Decision Making: Problems: Low: Stable chronic illness Data: Unique test result(s) reviewed: 2 Unique test(s) ordered: 2 Risk: Moderate: Drug management Medical Decision Making Level: 4 - Moderate Wilfred Rodriguez MD [facility] Diagnosis Type 2 diabetes mellitus without complication, without long-term current use of insulin (HCC) [facility] [place] [facility] Diagnosis Personal history of breast cancer Personal history of malignant neoplasm of breast Encounter for screening mammogram for high-risk patient documented in this encounter [facility] note* Diagnosis COVID- Primary documented in this encounter [facility] note* Diagnosis Encounter for screening mammogram for malignant neoplasm of breast- Primary Other screening mammogram documented in this encounter [facility] note* Diagnosis Type 2 diabetes mellitus without complication, without long-term current use of insulin (HCC)- Primary Hyperlipidemia with target LDL less than 100 Other and unspecified hyperlipidemia GERD without esophagitis Esophageal reflux Personal history of breast cancer Personal history of malignant neoplasm of breast documented in this encounter [facility] note* Diagnosis Laceration of left ring finger without foreign body without damage to nail, initial encounter- Primary documented in this encounter [facility] note* Diagnosis Encounter for removal of sutures- Primary Visit for wound check Encounter for other specified aftercare documented in this encounter [facility] note* Diagnosis Type 2 diabetes mellitus without complication, without long-term current use of insulin (HCC)- Primary Hyperlipidemia with target LDL less than 100 Other and unspecified hyperlipidemia GERD without esophagitis Esophageal reflux documented in this encounter [facility] note* Diagnosis Bacterial sinusitis- Primary Unspecified sinusitis (chronic) documented in this encounter [facility] note* Diagnosis Encounter for screening mammogram for malignant neoplasm of breast- Primary Other screening mammogram History of cancer of right breast 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 Routine gynecological examination documented in this encounter [facility] note* Diagnosis Type 2 diabetes mellitus without complication, without long-term current use of insulin (HCC) documented in this encounter [facility] note* Diagnosis Encounter for screening mammogram for malignant neoplasm of breast Other screening mammogram documented in this encounter [facility] note* Diagnosis Type 2 diabetes mellitus without complication, without long-term current use of insulin (HCC)- Primary Hyperlipidemia with target LDL less than 100 Other and unspecified hyperlipidemia GERD without esophagitis Esophageal reflux documented in this encounter [facility] for referral (narrative)* Diagnostic Procedure Only (Routine) - Pending Review Specialty Diagnoses / Procedures Referred By Yazmin t Referred To Contact [facility] Diagnoses Encounter for screening mammogram for malignant neoplasm of breast Procedures LAITH SCREENING SCREENING MAMMOGRAPHY BI 2-VIEW BREAST INC Sadie Lu MD [address] [place] [address] [facility] [address] [place] [address] Referral ID Status Reason Start Date Expiration Date Visits Requested Visits Authorized [id number] Pending Review Auto-Generat ed Referral 05/24/2022 06/23/2023 1 1 [facility] for referral (narrative)* Diagnostic Procedure Only (Routine) - Pending Review Specialty Diagnoses / Procedures Referred By Yazmin fermin Referred To Contact [facility] Diagnoses Encounter for screening mammogram for malignant neoplasm of breast Procedures LAITH SCREENING SCREENING MAMMOGRAPHY BI 2-VIEW BREAST INC Sadie Lu MD [address] [place] [address] [facility] [address] [place] [address] Referral ID Status Reason Start Date Expiration Date Visits Requested Visits Authorized [id number] Pending Review Auto-Generat ed Referral 06/14/2023 07/13/2024 1 1 [facility] for referral (narrative)* Diagnostic Procedure Only (Routine) - Closed Specialty Diagnoses / Procedures Referred By Yazmin fermin Referred To Contact [facility] Diagnoses Encounter for screening mammogram for malignant neoplasm of breast Procedures LAITH SCREENING SCREENING MAMMOGRAPHY BI 2-VIEW BREAST INC Sadie Lu MD [address] [place] [address] [facility] [address] [place] [address] Referral ID Status Reason Start Date Expiration Date V isits Requested Visits Authorized [id number] Closed Auto-Generate d Referral 05/24/2022 06/23/2023 1 1 [facility] for visit Narrative* Diagnostic Procedure Only (Routine) - Closed Specialty Diagnoses / Procedures Referred By Yazmin fermin Referred To Contact [facility] Diagnoses Encounter for screening mammogram for malignant neoplasm of breast Procedures LAITH SCREENING SCREENING MAMMOGRAPHY BI 2-VIEW BREAST INC Sadie Lu MD [address] [place] [address] [facility] [address] [place] [address] Referral ID Status Reason Start Date Expiration Date V isits Requested Visits Authorized [id number] Closed Auto-Generate d Referral 05/24/2022 06/23/2023 1 1 [facility] Summary Purpose Family History No Family History Records Found Advance Directives No Advanced Directives Records Found Additional Source Comments Source Comments (unrecognize d section and content) In the event this informatio n is protected by the Federal Confidentiality of Alcohol and Drug Abuse Patient Records regulations: The Federal rules restrict any use of the information to criminally investigate or prosecute any alcohol or drug abuse patient.[facility] the event this information is protected by the Federal Confidentiality of Alcohol and Drug Abuse Patient Records regulations: The Federal rules restrict any use of the information to criminally investigate or prosecute any alcohol or drug abuse patient.[facility] HospitalIn the event this information is protected by the Federal Confidentiality of Alcohol and Drug Abuse Patient Records regulations: The Federal rules restrict any use of the information to criminally investigate or prosecute any alcohol or drug abuse patient.[facility] HospitalIn the event this information is protected by the Federal Confidentiality of Alcohol and Drug Abuse Patient Records regulations: The Federal rules restrict any use of the information to criminally investigate or prosecute any alcohol or drug abuse patient.[facility] HospitalIn the event this information is protected by the Federal Confidentiality of Alcohol and Drug Abuse Patient Records regulations: The Federal rules restrict any use of the information to criminally investigate or prosecute any alcohol or drug abuse patient.[facility] HospitalIn the event this information is protected by the Federal Confidentiality of Alcohol and Drug Abuse Patient Records regulations: The Federal rules restrict any use of the information to criminally investigate or prosecute any alcohol or drug abuse patient.[facility] HospitalIn the event this information is protected by the Federal Confidentiality of Alcohol and Drug Abuse Patient Records regulations: The Federal rules restrict any use of the information to criminally investigate or prosecute any alcohol or drug abuse patient.[facility] HospitalIn the event this information is protected by the Federal Confidentiality of Alcohol and Drug Abuse Patient Records regulations: The Federal rules restrict any use of the information to criminally investigate or prosecute any alcohol or drug abuse patient.[facility] HospitalIn the event this information is protected by the Federal Confidentiality of Alcohol and Drug Abuse Patient Records regulations: The Federal rules restrict any use of the information to criminally investigate or prosecute any alcohol or drug abuse patient.[facility] HospitalIn the event this information is protected by the Federal Confidentiality of Alcohol and Drug Abuse Patient Records regulations: The Federal rules restrict any use of the information to criminally investigate or prosecute any alcohol or drug abuse patient.[facility] HospitalIn the event this information is protected by the Federal Confidentiality of Alcohol and Drug Abuse Patient Records regulations: The Federal rules restrict any use of the information to criminally investigate or prosecute any alcohol or drug abuse patient.[facility] HospitalIn the event this information is protected by the Federal Confidentiality of Alcohol and Drug Abuse Patient Records regulations: The Federal rules restrict any use of the information to criminally investigate or prosecute any alcohol or drug abuse patient.[facility] HospitalIn the event this information is protected by the Federal Confidentiality of Alcohol and Drug Abuse Patient Records regulations: The Federal rules restrict any use of the information to criminally investigate or prosecute any alcohol or drug abuse patient.[facility] HospitalIn the event this information is protected by the Federal Confidentiality of Alcohol and Drug Abuse Patient Records regulations: The Federal rules restrict any use of the information to criminally investigate or prosecute any alcohol or drug abuse patient.[facility] HospitalIn the event this information is protected by the Federal Confidentiality of Alcohol and Drug Abuse Patient Records regulations: The Federal rules restrict any use of the information to criminally investigate or prosecute any alcohol or drug abuse patient.[facility] HospitalIn the event this information is protected by the Federal Confidentiality of Alcohol and Drug Abuse Patient Records regulations: The Federal rules restrict any use of the information to criminally investigate or prosecute any alcohol or drug abuse patient.[facility] HospitalIn the event this information is protected by the Federal Confidentiality of Alcohol and Drug Abuse Patient Records regulations: The Federal rules restrict any use of the information to criminally investigate or prosecute any alcohol or drug abuse patient.[facility] HospitalIn the event this information is protected by the Federal Confidentiality of Alcohol and Drug Abuse Patient Records regulations: The Federal rules restrict any use of the information to criminally investigate or prosecute any alcohol or drug abuse patient.[facility] HospitalIn the event this information is protected by the Federal Confidentiality of Alcohol and Drug Abuse Patient Records regulations: The Federal rules restrict any use of the information to criminally investigate or prosecute any alcohol or drug abuse patient.[facility] HospitalIn the event this information is protected by the Federal Confidentiality of Alcohol and Drug Abuse Patient Records regulations: The Federal rules restrict any use of the information to criminally investigate or prosecute any alcohol or drug abuse patient.[facility] HospitalIn the event this information is protected by the Federal Confidentiality of Alcohol and Drug Abuse Patient Records regulations: The Federal rules restrict any use of the information to criminally investigate or prosecute any alcohol or drug abuse patient.[facility] HospitalIn the event this information is protected by the Federal Confidentiality of Alcohol and Drug Abuse Patient Records regulations: The Federal rules restrict any use of the information to criminally investigate or prosecute any alcohol or drug abuse patient.[facility] HospitalIn the event this information is protected by the Federal Confidentiality of Alcohol and Drug Abuse Patient Records regulations: The Federal rules restrict any use of the information to criminally investigate or prosecute any alcohol or drug abuse patient.[facility] HospitalIn the event this information is protected by the Federal Confidentiality of Alcohol and Drug Abuse Patient Records regulations: The Federal rules restrict any use of the information to criminally investigate or prosecute any alcohol or drug abuse patient.[facility] HospitalIn the event this information is protected by the Federal Confidentiality of Alcohol and Drug Abuse Patient Records regulations: The Federal rules restrict any use of the information to criminally investigate or prosecute any alcohol or drug abuse patient.[facility] HospitalIn the event this information is protected by the Federal Confidentiality of Alcohol and Drug Abuse Patient Records regulations: The Federal rules restrict any use of the information to criminally investigate or prosecute any alcohol or drug abuse patient.[facility] HospitalIn the event this information is protected by the Federal Confidentiality of Alcohol and Drug Abuse Patient Records regulations: The Federal rules restrict any use of the information to criminally investigate or prosecute any alcohol or drug abuse patient.[facility] Reason for Visit (unrecogniz ed section and content) Reason Comments Results Reason Comments Radiology Mammogram Reason Comments Covid19 Concern Reason Comments breast exam Reason Comments 6 Month Exam Reason Comments Laceration left ring finger lac eration, cut with knife x 20 mins ago Reason Comments Suture Removal In for 13 days Left ring finger Reason Comments F/U 6 Month Reason Comments Sinusitis X 2 months Reason Comments Yearly Exam Reason Onset Date Comments Refill Request 07/30/2023 Care Teams (unrecognized sec tion and content) 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 Relationship Specialty Start Date End Date Wilfred Rodriguez MD [address] [place] [address] PCP - General Family Practice 06/02/21 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 Relationship Specialty Start Date End Date Wilfred Rodriguez MD [address] [place] [address] PCP - General Family Practice 06/02/21 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 Relationship Specialty Start Date End Date Wilfred Rodriguez MD [address] [place] [address] PCP - General Family Practice 06/02/21 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 Relationship Specialty Start Date End Date Wilfred Rodriguez MD [address] [place] [address] PCP - General Family Practice 06/02/21 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 Relationship Specialty Start Date End Date Wilfred Rodriguez MD [address] [place] [address] PCP - General Family Practice 06/02/21 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 Relationship Specialty Start Date End Date Wilfred Rodriguez MD [address] [facility] [place] [address] PCP - General Family Medicine 06/02/21 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 Relationship Specialty Start Date End Date Wilfred Rodriguez MD [address] [facility] [place] [address] PCP - General Family Medicine 06/02/21 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 Relationship Specialty Start Date End Date Wilfred Rodriguez MD [address] [facility] [place] [address] PCP - General Family Medicine 06/02/21 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 Relationship Specialty Start Date End Date Wilfred Rodriguez MD [address] [facility] [place] [address] PCP - General Family Medicine 06/02/21 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 Relationship Specialty Start Date End Date Wilfred Rodriguez MD [address] [facility] [place] [address] PCP - General Family Medicine 06/02/21 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 Relationship Specialty Start Date End Date Wilfred Rodriguez MD [address] [facility] [place] [address] PCP - General Family Medicine 06/02/21 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 Relationship Specialty Start Date End Date Wilfred Rodriguez MD [address] [facility] [place] [address] PCP - General Family Medicine 06/02/21 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 Relationship Specialty Start Date End Date Wilfred Rodriguez MD [address] [facility] [place] [address] PCP - General Family Medicine 06/02/21 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 Relationship Specialty Start Date End Date Wilfred Rodriguez MD [address] [facility] [place] [address] PCP - General Family Medicine 06/02/21 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 Relationship Specialty Start Date End Date Wilfred Rodriguez MD [address] [facility] [place] [address] PCP - General Family Medicine 06/02/21 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 Relationship Specialty Start Date End Date Wilfred Rodriguez MD [address] [facility] [place] [address] PCP - General Family Medicine 06/02/21 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 Relationship Specialty Start Date End Date Wilfred Rodriguez MD [address] [facility] [place] [address] PCP - General Family Medicine 06/02/21 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 Relationship Specialty Start Date End Date Wilfred Rodriguez MD [address] [facility] [place] [address] PCP - General Family Medicine 06/02/21 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 This clinical summary was aggregated from multiple sources. Caution should be exercised in using it in the provision of clinical care. This summary normalizes information from multiple sources, and as a consequence, information in this document may materially change the coding, format and clinical context of patient data. In addition, data may be omitted in some cases. CLINICAL DECISIONS SHOULD BE BASED ON THE PRIMARY CLINICAL RECORDS. [facility]. provides no warranty or guarantee of the accuracy or completeness of information in this document.
== END | disposition home or self-care (01) ==
PROVIDERS: PCP Family Medicine; Referring Provider Physician Assistant; Visit Provider Physician Assistant
DX: R05.9 Cough, unspecified (principal)
CPT/HCPCS: 71046

== ENCOUNTER → 2024-03-25 | Outpatient (CLI) | payer MEDICARE, OTHER, SELFPAY | END | disposition home or self-care (01) | LOC: CT 07:16 | PROVIDERS: PCP Family Medicine; Referring Provider Specialist; Visit Provider Specialist | DX: M25.561 Pain in right knee (principal); M25.461 Effusion, right knee; M17.11 Unilateral primary osteoarthritis, right knee | CPT/HCPCS: 73700 ==

== ENCOUNTER 2024-04-08 06:59 | Day surgery (SDC) | payer MEDICARE, OTHER, SELFPAY ==
--- NOTE | 2024-03-25 07:42 | CT_ITS ---
CT RIGHT LOWER EXTREMITY WITH 3-D IMAGING CLINICAL INDICATION: RT KNEE, SARAI PROTOCOL TECHNIQUE: Axial CT images of the RIGHT lower extremity was performed without IV contrast material. Coronal and sagittal reformats were provided. The protocol utilizes one or more of the following dose reduction techniques: automated exposure control, adjustment of mA and/or kV according to patient size,and/or use of iterative reconstruction technique. RADIATION DOSAGE (If Supplied By Facility): CTDIvol = ( 18.08 ) mGy, DLP = ( 1431.96 ) mGycm COMPARISON: No relevant prior comparison study available FINDINGS: Bones: Imaging of the right hip joint was obtained. The patient is status post right total hip replacement. There is good alignment. No abnormality is seen. Imaging of the right knee joint was obtained. There is a marked degree of joint space narrowing involving the medial compartment of the knee joint with degenerative spurring along the medial femoral condyle and medial tibial plateau. There is a marked degree of joint space narrowing in the spur formation of the patellofemoral joint. There is a 3.1 mm bony density along the articular surface of the right lateral knee joint. Imaging of the right ankle joint was obtained. No significant abnormality is seen. Soft Tissues: The deep soft tissue structures are unremarkable. The superficial soft tissues are unremarkable without evidence of edema, hematoma, or foreign body. CT/Extremity Lower without Contra IMPRESSION: Marked degree of joint space narrowing and osteoarthritis involving the medial compartment of the knee joint as well as the patellofemoral joint. Electronically Signed: Negrito Oliver MD at 14:57 EDT ,
--- NOTE | 2024-03-25 07:44 | EKG12_ITS ---
Test Reason : PREOP Blood Pressure : / mmHG Vent. Rate : 064 BPM Atrial Rate : 064 BPM P-R Int : 154 ms QRS Dur : 086 ms QT Int : 426 ms P-R-T Axes : 027 -56 003 degrees QTc Int : 439 ms Normal sinus rhythm Left anterior fascicular block Abnormal ECG Confirmed by Pierce Bethea ([id number]), supervising editor trailer RANDAL SALCEDO ([id number]) on 03/26/2024 6:09:31 AM Referred By: Philippe Tran Confirmed By:Pierce Bethea
[2024-03-25 08:38] LABS: Absolute Lymphocyte Count 2.58 X10^3/uL (0.83-4.51); Absolute Neutrophil Count 3.8 X10^3/uL (2.0-7.7); Basophil# 0.05 X10^3/uL; Basophil% 0.7 % (0-1); Eosinophil# 0.44 X10^3/uL; Hematocrit 45.3 % (37-47); Hemoglobin 15.2 g/dL (12.0-15.0); Lymphocyte # 2.58 X10^3/ul (0.83-4.51); Lymphocyte % 35.2 % (19-41); Mean Corp Hgb Conc 33.6 g/dL (32-36); Mean Corpuscular Hgb 30.2 pg (27.0-32.0); Mean Corpuscular Volume 89.9 fL (81-99); Mean Platelet Vol. 9.9 fl (6.2-12.0); Monocyte# 0.48 X10^3/uL; Monocyte% 6.6 % (0-10); NRBC Flagged by Analyzer 0 % (0-5); Neutrophil # 3.75 X10^3/uL (2.7-7.7); Neutrophil % 51.2 % (47-70); Platelet Count 337 K/mm3 (150-450); RBC Distribution Width CV 12.5 % (11.6-14.6); RBC Distribution Width SD 41.1 fl (35.1-43.9); Red Blood Count 5.04 M/mm3 (4.2-5.4); White Blood Count 7.3 K/mm3 (4.4-11.0)
[2024-03-25 08:43] LABS: International Normalized Ratio 0.8; Prothrombin Time (Protime)PT. 11.6 SECONDS (11.7-14.9)
[2024-03-25 08:44] LABS: Partial Thromboplast Time 24.9 Seconds (24.1-36.2)
[2024-03-25 09:42] LABS: AST(SGOT) 20 U/L (15-37); Alanine Aminotransfer ALT/SGPT 46 U/L (13-56); Albumin, Serum 3.8 g/dL (3.2-5.0); Alkaline Phosphatase 80 U/L (45-117); Bilirubin, Direct 0.15 mg/dL (0.00-0.30); Globulin 3.2 g/dL (2.2-4.2); Magnesium 2.3 mg/dL (1.6-2.6)
--- NOTE | 2024-03-29 09:32 | HP.PCM_ITS ---
History and Physical History and Physical Patient Name: Mariluz Mandujano : 1950From:? ANIA CISSE PA-C DATE OF PRE-OPERATIVE EXAM: 03/29/2024 DATE OF SURGERY:? 04/08/2024 SCHEDULED PROCEDURE:? Robotic-assisted right total knee arthroplasty HISTORY OF PRESENT ILLNESS: Preoperative history and physical exam performed on March 29, 2024.? This is a 73 -year-old female who has been having ongoing pain for years.? Pain has progressed over the past 6-7 months.? Patient does have past history of surgery for a left total knee arthroplasty on February 09, [address] Philippe Tran.? She is doing well with the left knee.? She has continued to have progressive worsening symptoms on the right knee.? Pain is been stabbing.? It does occasionally give out on her.? Pain is increased with going up and down stairs.? Patient states she has difficulty with activities of daily living including shopping and leisure activities such as hiking and walking.? Pain occasionally awakens her at night.? Patient has tried previous conservative measures including rest, ice with minimal relief.? She has tried previous corticosteroid injection without relief.? She has tried Tylenol, Advil, topical freeze with minimal improvement.? She has attempted home exercises prescribed by the doctor without relief.? Patient does get intermittent swelling with the right knee.? She denies past history of surgery on the right knee.? Patient has obtain surgical clearance from the primary care provider Dr. Stanley.? Patient has medical history pertinent for type 2 diabetes mellitus in which the last A1c was 6.9.? She has diagnosis from primary care provider with hyperlipidemia controlled on lifestyle changes in diet.? She denies past history of DVT or pulmonary embolism.? There's been no recent fevers, chills, recent infections.? Patient states she is currently getting procedure for a needle biopsy on her breast to rule out cancer.? She states the provider did not wish her to cancel her surgery and states most likely benign.? This was discussed with the patient by Dr. Philippe Tran.? After failing conservative measures and discussing all treatment options with Dr. Philippe Tran, the patient does wish to proceed with a robotic assisted right total knee arthroplasty. REVIEW OF SYSTEMS: Review Of Systems: Constitutional: Denies change in appetite, fever,or weight change. Cardiovasular: Reports heart murmur, but denies chest pain and irregular heartbeat. Respiratory: Denies cough, pneumonia, shortness of breath, tuberculosis and wheezing. Gastrointestinal: Denies constipation, diarrhea, heartburn, nausea, rectal itching, bloody stools and vomiting. Genitourinary: Denies incontinence. Musculoskeletal: Reports gait disturbance, pain and trouble walking, but denies leg swelling and weakness. Skin: Denies Raynaud's, history of shingles and tattoo. Neurological: Denies ambulatory dysfunction, dizziness, numbness/tingling and tremor. Psychiatric: Denies anxiety, insomnia and stress. Hematologic/Lymphatic: Denies anemia, bleeding/bruising tendency and past transfusion. Reviewed, no changes. PAST MEDICAL HISTORY: Advance Care Plan: Other Directive, POA Effective Date: 04/17/2017 Past Medical History: Medical Problems: Cancer - RT BREAST Diabetes, Seasonal Allergies, Hyperlipidemia Accidents: Foot FX Surgical Hx: Hysterectomy - (1974) LT Knee Arthroscopy - (2003) [place] Lumpectomy - (10/2011) RT BREAST Tonsillectomy Dennis Cataract - (07/2018) RT THR - (05/22/2019) SAW@[facility] Lump Removal - LT LEG Robotic Assisted LT Total Knee Replacement - (02/09/2022) [facility]W @ [facility] Anesthesia Complications: Slow To Wake Up, Nausea, Vomiting Assistive Devices: Glasses - READING Reviewed and updated. SOCIAL HISTORY: Social History: Marital: Single.Occupation: Retired.Work Status: Retired.Hand Dominance: Right- handed. Personal Habits:? Cigarette Use: Never Smoked Cigarettes.Smokeless Tobacco: Never Used Smokeless Tobacco.E-Cigarette Use: Never used.Alcohol: Denies use.Drug Use: Denies Use.Enjoy Exercising: Exercises 1-3 X/Week. Reviewed, no changes. VITALS: Ht: 64.5 Wt: 175lb 6oz Wt k.550 BMI: 29.6 BP: 132/78 Pulse: 80 T: 97.8 T: 36.6C Pain Level: 8 O2SatR: 97 ALLERGIES: Ampicillin Penicillin Adhesives MEDICATIONS: Oxycodone HCL 5 mg 1-2 tab by mouth every 4 hours, Meloxicam 7.5 mg 1 tablet by mouth twice a day, Zofran 4 mg 1-2 tablets by mouth every 8 as needed nausea, Famotidine 20 mg 1 tablet by mouth every day, Calcium 1200 4522-2401 MG-Unit 1po qday, Vitamin B12 500 mcg 1po qday, Tylenol Extra Strength 500 mg prn, Zyrtec Allergy 10 mg prn, Multi Vitamin Daily? 1 by mouth every day, Vitamin D3 50 mcg (2000 Ut) 1 by mouth every day, Metformin HCL 1000 mg 1 po qdaily, Ibuprofen 200 mg every 6 hours prn PRE-OP EXAM: General appearance:NORMAL? Other: Eyes: Conjunctivae and lids: NORMAL? Pupils: ERR Ears, Nose, Mouth, and Throat: NORMAL? Other: Inspection of lips, teeth and gums: NORMAL?? Other: Neck: Examination of neck: no masses noted. Respiratory: Assessment of respiratory effort: NORMAL?? Other: ? Auscultation of lungs: clear to auscultation no wheezes, rhonchi or rales. Cardiovascular:? Auscultation of heart: regular rate and rhythm, Positive systolic murmur PHYSICAL EXAMINATION: On exam of the right knee patient does walk with an antalgic gait.? She has moderate effusion.? There is tenderness to palpation along the medial joint line.? She has varus alignment which is partially correctable.? Range of motion: Lacks 15 full extension to 112 flexion.? Stable to anterior/posterior drawer exam. IMAGING STUDIES: Previous x-rays of the right knee reveal varus alignment with medial joint space narrowing, subchondral sclerosis, osteophyte formation consistent with severe stage IV bone on bone erosive osteoarthritis IMPRESSION: 1.? Severe right knee osteoarthritis 2.? Presence of left total knee arthroplasty February 09, 2022 3.? Type 2 diabetes mellitus: A1c 6.9 4.? Hyperlipidemia 5.? Overweight with BMI 29.6 PLAN: Dr. Pihlippe Tran did discuss and review with the patient all treatment options including surgical versus nonsurgical options.? Patient does wish to proceed with the above-stated procedure.? Potential risks, benefits, and complications of the procedure were discussed in detail including but not limited to , infection, nerve and blood vessel damage, persistent pain, numbness, tingling, paresthesias, blood clot, pulmonary embolism, and requirement for possible further surgery.? The patient expressed full understanding and has no further questions for the doctor.? Patient does agree to proceed with the above-stated procedure and has signed the surgery consent form. POST-OP MEDICATION PLAN: Pain Medications:? Patient was given the following medications at the preo perative visit: Famotidine, meloxicam, oxycodone, and Zofran.? 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 Patient does have a walker that she will bring the hospital.? We did discuss the needle biopsy and proceeding forward with surgery.? She had a discussion with Dr. Philippe Tran.? Patient was given opportunity to postpone surgery however patient wished to proceed forward as she states her provider states this area is high likelihood of being benign. DVT Prophylaxis:? Aspirin 81 mg twice daily for 4 weeks postoperatively.? Denies past history of DVT or pulmonary embolism This dictation was created using voice recognition software. Phonetic and/or grammatical errors may exist. ___? I have re-examined the patient.? There are no clinical changes since date of exam. ___? See progress notes for changes. ___? Dictated on admission Date: ? Time: Signature:
[2024-04-08] VITALS (13 sets, daily range): BP systolic 76–138; BP diastolic 45–72; PULSE 56–74; RESP 12–16; TEMP 36.1–36.8; O2SAT 93–100; BMI 30.1
--- NOTE | 2024-04-08 07:33 | PRE.ANES_ITS ---
ASA Classification* ASA Classification ASA Classification: 2 Assessment & Plan Anesthesia* Anesthesia Assessment Anesthesia Assessment: Discussed sedation and/or anesthesia options, risks, benefits, and alternatives with patient/parents/legal guardian/POA. Questions invited. The patient/parents/legal guardian/POA seems to understand and agrees to proceed with anesthesia plan. Reviewed the physical assessment, medical history, allergy history and patient home medications list prior to surgery/procedure/anesthetic and documented any changes. Performed airway and anesthesia risk assessments. Anesthesia Type Anesthesia Type: Spinal (Block consented) Anesthesia Focused Assessment* Airway Assessment Mouth opens: >3 cm Mallampati Score: II Focused Labs Anesthesia Preop lab: CBC WBC 7.3 K/mm3 (4.4-11.0) 03/25/24 07:22 RBC 5.04 M/mm3 (4.2-5.4) 03/25/24 07:22 Hgb 15.2 g/dL (12.0-15.0) H 03/25/24 07:22 Hct 45.3 % (37-47) 03/25/24 07:22 Plt Count 337 K/mm3 (150-450) 03/25/24 07:22 CHEMISTRY Potassium 3.9 mmol/L (3.5-5.1) 01/28/22 08:01 Sodium 140 mmol/L (136-145) 01/28/22 08:01 Magnesium 2.3 mg/dL (1.6-2.6) 03/25/24 07:22 BUN 15 mg/dL (7-18) 01/28/22 08:01 Creatinine 0.82 mg/dL (0.55-1.02) 01/28/22 08:01 Glucose 148 mg/dL (74-106) H 01/28/22 08:01 POC Glucose 191 mg/dL (74-106) H 02/09/22 10:04 COAG PT 11.6 SECONDS (11.7-14.9) L 03/25/24 07:22 Pre-Assessment Diagnosis/Proposed Procedure Planned Operative Procedure(s): Total Knee Replacement Robotic Arm Alina Anesthesia History 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 When Was Last Pacemaker Check QUESTION #4 FULL TEXT: You/Your Family Experience fever (hyperthermia) with Anesthesia Last Oral Intake Last Oral intake: Last Oral Intake NPO since Meds taken in AM with sips of water? Meds patient instructed to take am of surgery PONV PONV - inspector agricultural commodities: PONV - inspector agricultural commodities Female Yes 03/22/24 08:14 HX of Motion Sickness Yes 03/22/24 08:14 HX of N/V After Surgery Yes 03/22/24 08:14 Non-Smoker Yes 03/22/24 08:14 Duration of Surgery greater Yes 03/22/24 08:14 than 60 minutes Number of Risk Factors 5 03/22/24 08:14 PONV Score Severe Risk 03/22/24 08:14 Height & Weight Height & Weight: Anesthesia: Height & Weight Height 5 ft 4 in 10/09/23 12:48 Respiratory Assessment Respiratory Assessment - inspector agricultural commodities: Respiratory Tract Infection Hx - inspector agricultural commodities Hx Respiratory Tract Infection No 03/22/24 08:14 STOP Sleep Apnea STOP Sleep Apnea - inspector agricultural commodities: STOP Sleep Apnea - inspector agricultural commodities Hx Hypertension No 03/22/24 08:14 Hx Sleep Apnea No 03/22/24 08:14 CPAP No 03/22/24 08:14 BIPAP Do you snore loudly (louder No 03/22/24 08:14 than talking or can be heard Do you often feel tired/ No 03/22/24 08:14 fatigued/ sleepy during daytime? Has anyone observed you stop No 03/22/24 08:14 breathing during sleep? STOP Results Negative 03/22/24 08:14 QUESTION #5 FULL TEXT : Do you snore loudly (louder than talking or can be heard through closed doors)? 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 Specify any problems Hx of Preganancy in last 3 No 03/22/24 08:14 Months Nurse Filling Out Transfusion MGRIFFITH 03/22/24 08:14 & Questions: Date: 03/22/24 03/22/24 08:14 Time: 08:16 03/22/24 08:14 Patient unable to answer at this time (ie. confused, unrespo /Reproduction History /Reproductive History - inspector agricultural commodities: /Reproductive Hx- inspector agricultural commodities Hx Now No 03/22/24 08:14 Gestational Age (in weeks): EDC: Hx Hx Para Hx Section SAB Active Medications Active Medications: Current Medications Generic Name Dose Route Start Last Admin Trade Name Freq PRN Reason Stop Dose Admin Acetaminophen 1,000 mg 04/08/24 09:15 Acetaminophen 500 Mg Tablet PO 04/08/24 09:16 X1 ONE Acetaminophen 1,000 mg 04/08/24 14:00 Acetaminophen 500 Mg Tablet PO Q8 [facility] Celecoxib 400 mg 04/08/24 09:15 Celecoxib 200 Mg Capsule PO 04/08/24 09:16 X1 ONE Sodium Chloride 77.4 ml/ 0 ml 04/08/24 09:15 Ropivacaine 200 mg/ OPERA.SITE 04/08/24 09:16 Epinephrine HCl 0.6 mg/ X1 ONE Ketorolac Tromethamine 30 mg/ Morphine Sulfate 5 mg Dexamethasone Sodium Phosphate 10 mg 04/08/24 09:15 Dexamethasone 10 Mg/Ml Vial IV 04/08/24 09:16 X1 ONE Gabapentin 600 mg 04/08/24 09:15 Gabapentin 600 Mg Tablet PO 04/08/24 09:16 X1 ONE Lactated Ringer's 1,000 mls @ 999 mls/hr 04/08/24 09:15 IV 04/08/24 10:15 .Q1H1M [facility] Cefazolin Sodium 2 gm/ Sodium 110 mls @ 150 mls/hr 04/08/24 09:15 Chloride IV 04/08/24 09:58 PREOP ONE Tranexamic Acid 1,000 mg/ 110 mls @ 660 mls/hr 04/08/24 09:15 Sodium Chloride IV 04/08/24 09:24 X1 ONE Tranexamic Acid 1,000 mg/ 110 mls @ 660 mls/hr 04/08/24 09:15 Sodium Chloride IV 04/08/24 09:24 X1 ONE Lactated Ringer's 1,000 mls @ 999 mls/hr 04/08/24 09:15 IV 04/08/24 10:15 .Q1H1M JACKI Magnesium Sulfate 1 gm/ 102 mls @ 408 mls/hr 04/08/24 09:15 Dextrose IV 04/08/24 09:29 X1 ONE Cefazolin Sodium 1 gm in 50 mls @ 150 mls/hr 04/08/24 07:01 IV 04/08/24 07:20 X1 ONE Insulin Human Lispro 1 - 6 unit 04/08/24 09:15 Insulin Lispro 100 Unit/Ml Insuln.Pen SC Q4H PRN PRN BG>/= 180, SEE PROTOCOL Protocol Morphine Sulfate 2 - 4 mg 04/08/24 07:01 Morphine 2 Mg/Ml Syringe IV Q2H PRN PRN Pain Score 6-10 Ondansetron HCl 4 mg 04/08/24 07:01 Ondansetron 4 Mg/2 Ml Vial IV Q8H PRN PRN NAUSEA Oxycodone HCl 5 - 10 mg 04/08/24 07:01 Oxycodone 5 Mg Tablet PO Q4H PRN PRN Pain Score 4-10 Promethazine HCl 12.5 mg 04/08/24 07:01 Promethazine 25 Mg/Ml Syringe IM Q6H PRN PRN NAUSEA/VOMITING PFSH Medical History PONV (postoperative nausea and vomiting) Easy bruising Restless legs History of colitis Heartburn Non-smoker Heart murmur Allergic dermatitis Atopic dermatitis Wears glasses Post-menopausal Cancer History of steroid therapy Diabetes Arthritis Dietary restriction History of diverticulitis Gastric reflux History of echocardiogram Cardiology follow-up encounter History of irregular heartbeat Hx of breast lump Home Medications ?Medication ?Instructions ?Recorded ?Last Taken ?Type cholecalciferol (vitamin D3) 50 1,000 unit PO BID SUPPLEMENT 05/08/19 02/08/22 History mcg (2,000 unit) capsule cyanocobalamin (vitamin B-12) 500 mcg PO DAILY SUPPLEMENT 05/08/19 02/02/22 History 1,000 mcg capsule multivitamin 1 ea PO DAILY SUPPLEMENT 05/08/19 02/02/22 History carboxymethylcellulose sodium 0.5 1 drp OP BID eyes 05/17/19 02/08/22 History % eye drops cetirizine 10 mg tablet (Zyrtec) 10 mg PO DAILY PRN ALLERGIES 01/26/22 02/02/22 History metformin 500 mg tablet,extended 1,000 mg PO DAILY 01/26/22 02/08/22 History release 24 hr calcium citrate 200 mg (950 mg) 500 mg PO BID 03/22/24 Unknown History tablet Allergy/AdvReac Type Severity Reaction Status Date / Time adhesive Allergy Rash Verified 01/24/24 14:23 adhesive tape Allergy Rash Verified 03/22/24 08:05 ampicillin Allergy Rash Verified 03/22/24 08:05 Penicillins (PCN) Allergy Rash Verified 03/22/24 08:05 Surgical History History of lateral meniscus repair of left knee Hx of lumpectomy Hx of total hip arthroplasty Hx of bilateral cataract extraction Hx of knee surgery Hx of hysterectomy Hx of tonsillectomy Social History Smoking Status: Never smoker Review of Systems (Anesthesia) ROS Narrative System reviewed and no additional complaints, except as documented.
[2024-04-08] MEDS: Lactated Ringers 1,000 ML 999 ML IV ×3 (07:50→12:11)
[2024-04-08] MEDS: Magnesium 1 GM over 15 mins IV (07:51)
[2024-04-08 08:12] LABS: Bedside Glucose 187 mg/dL (74-106)
[2024-04-08] MEDS: Acetaminophen 500 MG Tablet 1000 MG PO (08:13)
[2024-04-08] MEDS: Celecoxib 200 MG Capsule 400 MG PO (08:13)
[2024-04-08] MEDS: Gabapentin 600 MG Tablet PO (08:13)
[2024-04-08] MEDS: Insulin Lispro 100 UNIT/ML INSULN.PEN SC (08:19)
[2024-04-08] MEDS: Cefazolin 2 GM in 0.9% Normal Saline (100mL Bag) 100 ML IV (09:05)
--- NOTE | 2024-04-08 09:15 | KNEE_PTH ---
PATIENT: RAHAT GOTTLIEB LOC: [facility] [place] U[place][id number] AGE/SX: 73/F ROOM: RE04/08/[address]: Dr. Philippe Tran MD : 1950 BED: DIS: 04/08/2024 SPEC #: [id number] RECD: 04/08/24 15:12 STATUS: KEYONNA RENieves #: [id number] DAWSON: 04/08/24 09:[address]: Philippe Tran DEPT: SURGICAL PATHOLOGY RECD BY: Aparna Chanel ENTERED: 04/09/24 10:29 SP TYPE: TOTAL KNEE OTHR DR: Dr. Jw Stanley MD Tissues: Knee, NOS Procedures: Decalcification bone/plaque Surgery Specimen Level IV HEADER OPERATION: Total knee replacement robotic arm assisted PRE-OP DIAGNOSIS: Severe right knee osteoarthritis TISSUE SUBMITTED: Right knee bone and tissue MICROSCOPIC DIAGNOSIS Bone and soft tissue, right knee, total knee replacement/resection: Pieces of bone with degenerative osteoarthritic changes. Fibroadipose tissue, fibroconnective tissue and reactive synovial tissue. : 04/12/2024 MICROSCOPIC DESCRIPTION Slides are reviewed. GROSS DESCRIPTION Received is one container designated bone and soft tissue right knee. The specimen consists of multiple fragments of espana-yellow bone measuring in aggregate 10.0 x 8.0 x 3.5 cm. A few pieces of soft tissue noted adjacent attached to one of the pieces of bone measuring 2.0 x 1.0 x 0.2cm. A number of bony fragments contain articular surfaces consistent with tibial plateau and femoral condyle and displaying prominent osteophyte formation, eburnation and bone erosion. [facility] sections are submitted in two cassettes as follows: 1 - soft tissue, 2 - bone after decalcification, 3- More section are submitted in cassette #3. [facility] 04/09/2024 Additional section from the bone is submitted in cassette #3. [facility] 04/12/2024 TC:5 CPT: 45782, 72211
[2024-04-08] MEDS: TXA 1000mg in NS100 100ml (IVPB at Closure) 660 MG IV (09:20)
[2024-04-08] MEDS: dexAMETHasone 10 MG/ML Vial IV (09:20)
[2024-04-08] MEDS: JPS (Morphine 10mg/ml) OPERA.SITE (09:53)
[2024-04-08] MEDS: TXA 1000mg in NS100 100ml (IVPB at Incision) 660 MG IV (10:00)
--- NOTE | 2024-04-08 10:08 | OP.PCM_ITS ---
Report of Operation Pre-Operative Diagnosis: Right knee primary osteoarthritis Post-Operative Diagnosis: Right knee primary osteoarthritis Surgery/Procedure Performed:: Right minimally invasive robotic total knee replacement Description of Surgical Findings:: Stable knee with good patella tracking Surgeon: Philippe Tran director of physician practices: Yogesh Lackey Type of Anesthesia: Spinal Anesthesiologist: Han Azevedo Special Medications: 2 g Ancef, 1 g TXA at incision, 1 g TXA closure, 10 mg Decadron, joint cocktail (5 mg Duramorph, 30 mL of 0.5% Ropivicaine, 1000 units of epinephrine, 30 mg of Toradol) Specimen's removed: Bony cuts Estimated Blood Loss (mL): 100 Fluids Replaced: 1500 ML Description of Procedure: Implants used: 1. [place] size 4 triathlon cruciate retaining distal femoral press-fit component 2. Fior size 4 press-fit tritanium tibial baseplate 3. Fior X3 10 mm CS polyethylene 4. Fior X3 29 mm asymmetric patella Brief history operative indications: 73-year-old f with history of right knee osteoarthritis with radiographic findings with loss of joint space, osteophyte formation and subchondral sclerosis. Failed conservative measures as mentioned in the H&P. Discussion of total knee arthroplasty as well as risk and benefits were discussed the patient including but not limited to blood loss, DVTs, PEs, neurovascular damage, general risk of anesthesia including loss of life, and stiffness or instability were discussed with patient. Patient demonstrated understanding and was able to sign informed consent. Procedure: On the date of procedure patient's right lower extremity was marked in the preoperative area. The patient was then taken back to the operating room where the patient was placed on the table in the supine position. All bony prominences were identified a well-padded. Anesthesia assumed control of the C-spine and airway and remained controlled throughout the remainder of the procedure. A tourniquet was placed on the right upper thigh and the leg was prepped in a sterile fashion. The surgeon then scrubbed at this time .Upon reentering the room right lower extremity was draped in a standard orthopedic fashion. A timeout was then called and everyone agreed upon the side, the site, the procedure to be performed, patient's identity and antibiotics given. Esmarch bandage was used to exsanguinate the extremity and the tourniquet was placed up to 250 mmHg with the knee in flexion. A midline skin incision was made and sharp dissection was taken down through skin subcutaneous tissue and fat. The standard medial parapatellar incision was made and the patella was roberts bluxed laterally. An Appropriate deep MCL release was done and the fat pad was resected. Our attention was then directed to the patella. The patella was everted and a flat resection was made. The knee was then flexed up in 2 femoral pins were placed inside the incision and 2 tibial pins were placed outside the incision in the medial tibia bicortically. Once this was completed the 2 checkpoints in the femur and tibia were placed. Knee was then flexed up and the bony landmarks were registered. Once this was completed knee was taken through range of motion and manually stressed allowing us to a plan for an appropriate tibial cut. The robotic arm was brought into the field sterilely and checkpoint and saw were registered. Based on the patient's deformity the tibial cut was made neutral to the tibial axis. At this time the tensioner was then placed in the joint and ligament tension was checked at 90 degrees and full extension. Based on the patient's ligamentous tension appropriate adjustments were made to the operative plan and ligament releases were done. Once we were happy with our operative plan with balanced flexion and extension gaps our attention was directed to the femur. The robot was brought into the field sterilely and registered. Posterior condylar cuts, anterior chamfer cuts and anterior cuts were appropriately made for a size 4 femur. When these were completed the saws were switched out in the distal femoral and posterior chamfer cuts were made. Protecting the soft tissue throughout this time. A size 4 tibial base plate was selected. the knee was flexed to 90 degrees and the soft tissues and posterior osteophytes were removed from the joint. 40 cc of the periarticular injection was injected into the posterior medial corner of the joint. The appropriate trials were then placed on the femur and tibia. A trial polyethylene was trialed to ensure proper balancing and stability of the knee. The appropriate tibial internal rotation was then marked with a bovie. Our attention was then directed to the patella. The lug holes were drilled and the patella trial was placed. Patellar tracking was checked and deemed appropriate. Once we were happy lug holes were drilled for the femur and trial components were removed. the tibia was subluxed and pinned into place and the keel was punched and drilled appropriately. Final components were verified and opened, and cement was mixed in a vacuum. Exaptive Simplex cement was used. The wound was copiously irrigated with normal saline. When the cement was ready the components were impacted into place starting with the tibia, femur and finally cementing the patella. The trial poly component was placed and the knee was placed in full extension. All excess cement was removed in the process. Once the cement had cured the tracking, alignment and balance were verified and a size 10 mm CS polyethylene component was placed. Once the final components were placed a 3-minute dilute Betadine lavage was performed followed by an Irrisept lavage was performed and the wound was copiously irrigated with normal saline solution and the periarticular injection was given. The wound was closed in a layer duarte fashion using #1 vicryl interrupted sutures for the arthrotomy, 2-0 interrupted Vicryl suture for the subcuticular layer and jose for final skin closure. A sterile compressive dressing was then placed. The patient was then awakened from anesthesia, transferred to the rmorrow and transferred to the PACU for recovery. Post op plan DVT ppx: ASA 81mg BID, thigh high compression stockings Follow up: in office in 2 weeks for wound check PT: to start POD #0 at hospital, outpatient PT should be arranged. My physician account assistant was a vital part of this case. He was important in appropriate retraction during the case, and protection of soft tissues during bony cuts. His intimate knowledge of the case and my steps aided in safe and expedient completion of the procedure as well as appropriate position of the leg during the case. He was also vital in assisting with closure under my direct supervision. Due to the complexity of this case robotic arm was used to assist in the surgery to improve accuracy and clinical outcomes. Complications No intraoperative complications Admit VTE Documentation VTE Present on Admission: No VTE Mechan Device Prophylaxis: SCD's and Thigh High SHANTEL Hose VTE Pharm Prophylaxis ordered?: Yes
--- NOTE | 2024-04-08 11:11 | PCM.POST.ANE ---
Anesthesia: Postop Eval I Current Vital Signs Temperature: 97 F Pulse Rate: 65 Blood Pressure: 138/62 Respiratory Rate: 14 Pulse Ox: 93 Oxygen Delivery Method: Room Air Assessment Airway patent: Yes Spontaneous unlabored respirations: Yes Mental status: Awake and Calm nausea: No Vomiting: No Anesthesia Complication: No Fluid Hydration Crystalloid volume administer (ml): 1,500 Total IV fluid infused: 1,500 Progress Note Anesthesia document: Postop Eval 1 completed: Yes
--- NOTE | 2024-04-08 11:16 | RAD_ITS ---
STUDY: X-RAY - RIGHT KNEE REASON FOR EXAM: Female, 73 years old. tka -- in PACU TECHNIQUE: 2 view(s) of the knee. COMPARISON: CT of the right knee dated March 25, 2024 FINDINGS: Newly placed tricompartmental hardware is present demonstrating good bony contact and alignment. The tibial stem is non-cemented. Tract castro are seen in the undersurface of the patella due to placement of a radiolucent prosthetic component. There are expected postoperative changes in the soft tissues and joint including gas, fluid, and swelling. Overlying skin jose are present. No occult fractures seen. RAD/Knee 1 or 2 Views IMPRESSION: 1. Status post total right knee arthroplasty Electronically Signed: Daniel Mcneil MD at 19:23 EDT ,
--- NOTE | 2024-04-08 11:56 | POSTOPAN2_ITS ---
Anesthesia Postop Eval I Sum Postop Eval Completion status Anesthesia document: Postop Eval 1 completed: Yes Anesthesia Postop Eval I Summary Anesthesia Postop Eval I Summary: Anesthesia Postop Eval I: Assessment Summary Airway patent Yes 04/08/24 11:12 JUDICIAL LAW [email or web address] Spontaneous unlabored Yes 04/08/24 11:12 JUDICIAL LAW [email or web address] respirations Mental status Awake,Calm 04/08/24 11:12 JUDICIAL LAW [email or web address] nausea No 04/08/24 11:12 JUDICIAL LAW [email or web address] Vomiting No 04/08/24 11:12 JUDICIAL LAW [email or web address] Anesthesia Postop Eval I: Fluid Summary Crystalloid volume administer 1,500 04/08/24 11:12 JUDICIAL LAW [email or web address] (ml) Colloids volume administered ( ml) Blood Product volume administered (ml) Total IV fluid infused 1,500 04/08/24 11:12 JUDICIAL LAW [email or web address] Anesthesia Postop Eval I: Summary Notes Anesthesia Complication No 04/08/24 11:12 JUDICIAL LAW [email or web address] Anesthesia Complication Comment: Post-operative progress note Anesthesia: Postop Eval II Evaluation Mental status: Awake Pain Level: 2 nausea: No Vomiting: No Complications Anesthesia Complication: No
--- NOTE | 2024-04-08 11:56 | PCM.POSTANE2 ---
Anesthesia Postop Eval I Sum Postop Eval Completion status Anesthesia document: Postop Eval 1 completed: Yes Anesthesia Postop Eval I Summary Anesthesia Postop Eval I Summary: Anesthesia Postop Eval I: Assessment Summary Airway patent Yes 04/08/24 11:12 [email or web address] [email or web address] Spontaneous unlabored Yes 04/08/24 11:12 STUNT [email or web address] respirations Mental status Awake,Calm 04/08/24 11:12 [email or web address] [email or web address] nausea No 04/08/24 11:12 STUNT [email or web address] Vomiting No 04/08/24 11:12 STUNT [email or web address] Anesthesia Postop Eval I: Fluid Summary Crystalloid volume administer 1,500 04/08/24 11:12 STUNT [email or web address] (ml) Colloids volume administered ( ml) Blood Product volume administered (ml) Total IV fluid infused 1,500 04/08/24 11:12 STUNT [email or web address] Anesthesia Postop Eval I: Summary Notes Anesthesia Complication No 04/08/24 11:12 STUNT [email or web address] Anesthesia Complication Comment: Post-operative progress note Anesthesia: Postop Eval II Evaluation Mental status: Awake Pain Level: 2 nausea: No Vomiting: No Complications Anesthesia Complication: No
[2024-04-08] MEDS: Ketorolac 30 MG/ML Syringe IM (12:13)
[2024-04-08 12:37] LABS: Bedside Glucose 153 mg/dL (74-106)
[2024-04-08] MEDS: Cefazolin 1 GM/50 ML BAG IV (12:46)
== END 2024-04-08 14:59 | disposition home or self-care (01) ==
LOC: SDC 06:59 → AC 07:00
PROVIDERS: PCP Family Medicine; Referring Provider Specialist; Visit Provider Specialist
PROC: 0SRC0JZ Replacement of Right Knee Joint with Synthetic Substitute, Open Approach (ICD-10-PCS; CPT 27447; principal; 2024-04-08 08:45)
DX: M17.11 Unilateral primary osteoarthritis, right knee (principal); E11.9 Type 2 diabetes mellitus without complications; E78.5 Hyperlipidemia, unspecified; Z79.84 Long term (current) use of oral hypoglycemic drugs
CPT/HCPCS: 27447; S2900; 64447; 01402; 36415; 73560; 80076; 82962; 83735; 85025; 85610; 85730; 87081; 88305; 88311; 93005; 97162; C1776; J7120; J2405; J3475

== ENCOUNTER → 2024-04-10 | Outpatient (CLI) | payer MEDICARE, OTHER, SELFPAY ==
--- NOTE | 2024-04-10 10:46 | VDLE_ITS ---
Reason For Study: Right leg swelling RIGHT LEFT GSV is normal. CFV is compressible, spontaneous, phasic, CFV is compressible, spontaneous, phasic, competent, and demonstrates normal competent and demonstrates normal augmentation. augmentation. FV is compressible, spontaneous, phasic, competent and demonstrates normal augmentation. POP V is compressible, spontaneous, phasic, competent and demonstrates normal augmentation. T/P Trunk is compressible. PTV is compressible. RT PerV is compressible. Procedure This is a venous duplex using B-mode, color flow and spectral Doppler. Exam performed in department. A preliminary report was called and/or faxed to Dr. Tran. VL/Venous Duplex US, Unilateral Interpretation Summary Deep veins of the right lower extremity are patent and compressible segmentally . There is no evidence of right lower extremity deep vein thrombosis. The right great sapheno us vein appears patent and compressible segmentally. Ordering Physician: Philippe Tran Referring Physician: MD Lizeth Jw Performed By: Viri Cisneros RVT
== END | disposition home or self-care (01) ==
LOC: CVS 10:35
PROVIDERS: PCP Family Medicine; Referring Provider Specialist; Visit Provider Specialist
DX: R22.41 Localized swelling, mass and lump, right lower limb (principal)
CPT/HCPCS: 93971

== ENCOUNTER → 2024-05-21 | Outpatient (CLI) | payer MEDICARE, OTHER, SELFPAY ==
--- NOTE | 2024-05-21 11:30 | MRI_ITS ---
STUDY: BILATERAL BREAST MR WITHOUT AND WITH CONTRAST REASON FOR EXAM: Female, 74 years old. History of right lumpectomy in October 2011. Screening. TECHNIQUE: Multi-sequence multi-echo imaging of both breasts was performed with a dedicated breast coil. T1-weighted and T2-weighted images were performed before the administration of contrast. T1-weighted images were also performed after the intravenous administration of 15 mL of Clariscan contrast. COMPARISON: Bilateral mammogram dated March 19, 2024 FINDINGS: RIGHT BREAST: Predominantly fatty replaced breasts with minimal background enhancement. No abnormal enhancing masses or areas of non-mass enhancement in the right breast. LEFT BREAST: Predominantly fatty replaced breasts with minimal background enhancement. No abnormal enhancing masses or areas of non-mass enhancement in the right breast. No enlarged or abnormal lymph nodes. No abnormality in the visualized regions of the chest or liver. MRI/Breast Bilateral W/O and W IMPRESSION: No abnormality on the breast MRI with contrast. A alternate in screening mammogram and breast MRI with contrast for screening would be appropriate, given the patient''s history. CATEGORY: BIRADS Category 2: Benign. A letter regarding these results will be sent to the patient by the facility within 30 days. Electronically Signed: Joe Blas MD at 9:12 EDT ,
[2024-05-21 11:33] LABS: CREATININE FINGERSTICK < 1.0 mg/dL (0.55-1.02); EGFR FINGERSTICK > 60.0000 mL/min (>60)
== END | disposition home or self-care (01) ==
LOC: MRI 10:40
PROVIDERS: PCP Family Medicine; Referring Provider Surgery; Visit Provider Surgery
DX: C50.211 Malignant neoplasm of upper-inner quadrant of right female breast (principal); Z17.0 Estrogen receptor positive status [ER+]
CPT/HCPCS: 77049; A9575; A4216; C8908